=== PATIENT | female | born 1970 | race Caucasian/White ===

== ENCOUNTER 2020-07-28 13:54 | Outpatient (CLI) | payer BC, SELFPAY ==
--- NOTE | 2020-07-28 13:58 | MM_ITS ---
WS: [id number] BILATERAL SCREENING DIGITAL MAMMOGRAM WITH CAD HISTORY: SCREENING COMPARISON: 10/01/2013 Bilateral CC and MLO views submitted. Computer aided detection analyzed. Breast composition: There are scattered areas of fibroglandular density. No suspicious masses, microc alcifications or architectural distortion. MM/[place] [id number] IMPRESSION: BI-RADS: 1-Negative FOLLOW UP: 1 Year Follow-up
== END 2020-07-28 13:55 | disposition home or self-care (01) ==
LOC: RADSHAW 13:57
PROVIDERS: PCP Electrodiagnostic Medicine; Visit Provider Electrodiagnostic Medicine
DX: Z12.31 Encounter for screening mammogram for malignant neoplasm of breast (principal)
CPT/HCPCS: 77067

== ENCOUNTER → 2020-10-21 16:20 | Outpatient (BNVA) | payer BC, SELFPAY | PROVIDERS: PCP Electrodiagnostic Medicine; Visit Provider Nurse Practitioner Women's Health | DX: N95.1 Menopausal and female climacteric states (principal); Z12.4 Encounter for screening for malignant neoplasm of cervix | CPT/HCPCS: 88175 ==

== ENCOUNTER 2021-02-23 15:12 | Emergency (ER) | payer BC, SELFPAY ==
[2021-02-23] VITALS (8 sets, daily range): BP systolic 156–177; BP diastolic 93–108; PULSE 89–114; RESP 16–22; TEMP 37; O2SAT 93–95; BMI 38.7
--- NOTE | 2021-02-23 15:41 | XR_ITS ---
WS: [id number] Exam: XR chest 2V* [id number] Date/Time of Exam: 02/23/2021 3:41 PM Reason For Exam: cough, dyspnea, wheezing Comparison 10/05/2018. Findings: The lungs are clear and fully expanded. Costophrenic angles are sharp. No infiltrates. Bronchovascula r relief appears normal. Cardiac silhouette is unremarkable. Bony elements are intact. XR/XR chest 2V* [id number] IMPRESSION: Unremarkable chest radiograph.
--- NOTE | 2021-02-23 15:46 | ED_ITS ---
HPI - SOB/Dyspnea General: Chief Complaint: Shortness of Breath/Dyspnea Stated Complaint: PCP DIAGNOSED WITH PNEUMONIA ON SUNDAY PT WORSE Time Seen by Provider: 02/23/21 15:25 History of Present Illness: HPI Narrative: 51-year-old female states that on Sunday, 4 days ago she began to have sore throat nasal congestion as well as onset of cough. By Sunday morning she had some chills and her cough was getting worse and associated with some shortness of breath. She has been wheezing and having chest tightness. She went to her primary care physician who diagnosed her clinically with pneumonia and started her on Levaquin for infection control and prednisone 20 mg as well as albuterol inhaler (without a spacer). Patient reports she has not gotten any worse but she has also not gotten any better. She has easily appreciable wheezing on arrival and each breath that she takes and seems to trigger a dry hacking cough. Patient reports that her Covid PCR test was negative on Sunday. Patient does take estradiol and medroxyprogesterone. However, she does not have any complaint of extremity discomfort, hemoptysis, pleuritic chest pain nor does she have any known history of DVT or PE. Associated symptoms: Reports chest congestion, chest pain (pain if she coughs really hard) and fever(s) (low grade); Deny abdominal pain, diaphoresis, extremity pain, hemoptysis, nausea, syncope or vomiting Review of Systems General: Reports: 10 or more systems reviewed and unremarkable except in HPI and below Const: Reports: fever(s) (low grade), chills, fatigue and change in sleep pattern; Denies: body aches or diaphoresis Eyes: Denies: change in vision ENMT: Reports: throat pain, nasal congestion and post nasal drip Card: Reports: chest pain (pain if she coughs really hard) and dyspnea on exertion; Denies: edema, swelling of feet/ankles, syncope or pre-syncope Resp: Reports: dyspnea, productive cough (rarely productive--when it is mostly greenish sputum), non-productive cough, wheezing and chest congestion; Denies: hemoptysis GI: Denies: abdominal pain, nausea, vomiting or diarrhea : Denies: flank pain, dysuria or urinary frequency Musc: Denies: neck pain, back pain, extremity pain or extremity swelling Skin/Breast: Denies: rash or erythema Neuro: Denies: headache(s), numbness in extremities, weakness in extremities, lack of coordination or difficulty walking PFSH ED PFSH: Medical History (Updated 02/23/21 @ 16:24 by Maxim Carey MD) Depression 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 Hypertension Migraine headache No pertinent past medical history Neg hx: DM, thyroid, DVT/PE PCP: Dilip Surgical History History of ankle surgery (~11/2005) Right History of arthroscopic knee surgery (~04/2011) Left History of back surgery (~04/2019) Nerve ablation. Dr. Merino at [facility]. History of delivery (12/13/02) Performed in [place], [place] History of section (07/06/92) Performed in [place], [place] History of left tennis elbow (03/20/14) Release. [place] [facility] [place] of lithotripsy (~04/2006) History of right tennis elbow (~08/2007) Release Family History Mother Colon cancer, Onset Age: 70 Stroke Diabetes Dementia Father Heart disease Diabetes Hypertension Social History Smoking and tobacco status: former smoker Quit status (tobacco): has quit using tobacco Year quit tobacco: 1999 Alcohol intake: never Physical Exam Const: COMMON NORMALS: no limitations, alert and well nourished EXAM LIMITATIONS: no altered mental status GENERAL APPEARANCE: cooperative, well developed and other (coughing) ORIENTATION/CONSCIOUSNESS: Yes awake; not confused HENMT: COMMON NORMALS: normocephalic, atraumatic, external ears normal and Normal external nose present HEAD & SCALP: normal to inspection, normocephalic and atraumatic FACE & SINUS: face symmetric NOSE: Normal external nose present and No nasal discharge present (nasal congestion) EXTERNAL EAR: Yes external ears normal MOUTH: lip not normal (patient has known left sided hightower's palsy) and no muffled voice Eye: COMMON NORMALS: EOMs intact bilaterally and conjunctivae normal GENERAL EYE: appearance normal, both eyes and all related structures CONJUNCTIVA: Yes conjunctivae normal Neck/C-Spine: COMMON NORMALS: no JVD GENERAL: Yes normal visual inspection and Yes trachea midline Resp: EFFORT & INSPECTION: Yes symmetric chest movement, Yes tachypneic, Yes respiratory distress, Yes labored and Yes uses accessory muscles AUSCULTATION: wheezes and bronchial breath sounds Cardio: COMMON NORMALS: no JVD and regular rhythm RATE: tachycardic RHYTHM: regular rhythm PERIPHERAL PULSES: radial pulses present GI: COMMON NORMALS: Soft to palpation INSPECTION: Yes normal to inspection PALPATION: Yes Soft to palpation, No Tenderness to palpation present (GI) and No Guarding due to palpation present (GI) Back/Pelvis: COMMON NORMALS: thoraco-lumbar ROM normal Extremity: COMMON NORMALS: normal to inspection GENERAL: Yes normal exam except as noted, No edema and No mottling Neuro: COMMON NORMALS: moves all extremities, no focal motor deficits and no sensory deficits noted SENSORIUM/ORIENTATION: Yes alert Psych: COMMON NORMALS: mental status grossly normal, Normal thought process present, cooperative, normal affect and speech normal SPEECH: Yes normal speech THOUGHT PROCESS: Normal thought process present Skin: COMMON NORMALS: no rashes or lesions noted, turgor normal and no jaundice GENERAL SKIN EXAM: no rashes or lesions noted and turgor normal Course Vital Signs: Vital signs: Vital Signs Temperature 98.6 F 02/23/21 15:17 Pulse Rate 95 02/23/21 17:34 Respiratory Rate 16 02/23/21 17:34 Blood Pressure 156/93 02/23/21 17:29 Pulse Oximetry 93 02/23/21 17:34 MDM - SOB/Dyspnea MDM Narrative: Medical decision making narrative: Based on the history and physical examination I suspect the patient likely has a viral respiratory tract infection. She has bronchospasm with wheezing. Patient does not have any known history of asthma or COPD but this occasionally happens to her when she gets bronchitis. Although she is on prednisone she is only taking 20 mg daily. She has an albuterol inhaler which helps her but she is not using a spacer which may reduce the efficacy. If this is viral or fungal, Levaquin would not be expected to improve her symptoms. Pulmonary embolism is a consideration however with the nasal congestion, sore throat, chills, and syndrome most suggestive of infectious etiology I do not feel it is necessary to evaluate for pulmonary embolism at this time. I would, however, like to provide a albuterol nebulizer and obtain a two-view chest x-ray to begin with. UPDATE: The patient subjectively felt better after albuterol neb. On auscultation, the patient has improved aeration and therefore the inspiratory and expiratory wheezing are actually louader than before. Her cough has improved. The chest xray is clear. The patient has significant nasal congestion and is requesting treatment for same. Will give dose of afrin (and tessalon). Since her symptoms improved but wheezing persists will try a duoneb treatment with 6ml and then plan on dc unless any changes. Discharge Plan Discharge Patient Disposition: Home Clinical Impression: Acute bronchitis with bronchospasm Condition: Stable Prescriptions: New Advair Diskus 250-50 mcg/dose blister with device 1 inh inhalation Q12H 30 Days Qty: 60 RF: 0 prednisone 20 mg tablet 20 mg PO BID 7 Days Qty: 14 RF: 0 (DME) Space Chamber with Large Mask Spacer See Rx Instructions .ROUTE Qty: 1 RF: 0 No Action tramadol 50 mg tablet 50 mg PO TID PRN (Reason: Pain) RF: 0 estradiol 1 mg tablet See Rx Instructions .ROUTE .COMPLEX Qty: 45 RF: 3 atorvastatin 40 mg tablet 40 mg PO QAM RF: 0 prednisone 20 mg tablet 20 mg PO QAM RF: 0 lisinopril 10 mg tablet 10 mg PO BEDTIME RF: 0 Singulair 10 mg Tablet 10 mg PO QAM RF: 0 levofloxacin 500 mg tablet 500 mg PO DAILY RF: 0 albuterol sulfate 90 mcg/actuation HFA aerosol inhaler 1 - 2 puff INHALATION Q4H PRN (Reason: Shortness Of Breath) RF: 0 Flonase 50 mcg/actuation [place],Suspension 2 spray INTRANASAL DAILY RF: 0 levocetirizine 5 mg tablet 5 mg PO QAM RF: 0 Diflucan 150 mg tablet 150 mg PO ONCE RF: 0 citalopram 10 mg tablet 10 mg PO BEDTIME RF: 0 Provera 2.5 mg tablet 2.5 mg PO QAM RF: 0 Discharge Orders: Discharge ED (Routine); Ordered 02/23/21 Ordered By: Maxim Carey Referrals: Sharad Cherry, [Primary Care Provider] - 4-7 days Discharge Diet: Usual diet Discharge Activity: Resume usual activity Patient Instructions: Acute Bronchitis (ED), Bronchospasm (ED), Opioid Safety Activity Restrictions/Additional Instructions: Use albuterol inhaler with a spacer 2 puff every 4 hours or sooner as needed in an emergency. You may continue your levaquin as prescribed by your doctor but since this is likely viral--it may have no effect. Return to the ER if you are getting swollen, discolored skin, extremity pain, fever, or worsening respiratory problems. Coding Level of Care Code ED District Wildlife Manager for Carol Elizalde Exam Comprehensive
[2021-02-23] MEDS: predniSONE 20 mg Tablet 40 MG PO (16:28)
[2021-02-23] MEDS: ipratropium-albuterol 3 mL Neb 6 ML INHALATION (17:34)
[2021-02-23] MEDS: benzonatate 100 mg Capsule 200 MG PO (17:54)
== END 2021-02-23 18:14 | disposition home or self-care (01) ==
PROVIDERS: Emergency Provider Emergency Medicine; PCP Electrodiagnostic Medicine
DX: J47.0 Bronchiectasis with acute lower respiratory infection (principal); J20.9 Acute bronchitis, unspecified; Z87.891 Personal history of nicotine dependence; Z79.52 Long term (current) use of systemic steroids; I10 Essential (primary) hypertension; R09.81 Nasal congestion; R06.2 Wheezing
CPT/HCPCS: 71046; 94640; 99284; J7512; J7611

== ENCOUNTER 2021-03-22 15:44 | Outpatient (CLI) | payer BC, SELFPAY ==
--- NOTE | 2021-03-22 | CT_ITS ---
WS: [id number] CT CHEST TECHNIQUE: Noncontrast CT of the chest with coronal and sagittal reformatted images. CLINICAL INFORMATION: BRONCHITIS COMPARISON: February 23, 2021 DLP: 1041.[address] scans at [facility] use at least one of these dose optimization techniques: automated e xposure control; mA and/or kV adjustment per patient size (includes targeted exams where dose is matc hed to clinical indication); or iterative reconstruction. FINDINGS: Both lungs are well aerated. No acute pulmonary infiltrates. No focal pneumonia or pleural fluid. No mediastinal or hilar lymphadenopathy. No axillary lymphadenopathy. Normal caliber thoracic aorta. Adrenal glands are normal. Small esophageal hiatal hernia. CT/CT chest wo con 19502 IMPRESSION: 1. Both lungs are well aerated. No acute pulmonary infiltrates. 2. No focal pneumonia or pleural fluid. 3. No mediastinal or hilar lymphadenopathy. 4. Small esophageal hiatal hernia. 5. No other significant findings.
== END 2021-03-22 15:45 | disposition home or self-care (01) ==
PROVIDERS: PCP Electrodiagnostic Medicine; Visit Provider Electrodiagnostic Medicine
DX: J44.9 Chronic obstructive pulmonary disease, unspecified (principal); K44.9 Diaphragmatic hernia without obstruction or gangrene
CPT/HCPCS: 71250

== ENCOUNTER 2021-08-09 14:32 | Emergency (ER) | payer OTHER, SELFPAY ==
[2021-08-09 14:47] VITALS: BP 160/104; PULSE 100; RESP 16; TEMP 37.2; O2SAT 98; BMI 38.9
--- NOTE | 2021-08-09 15:01 | ED_ITS ---
HPI - Headache General: Chief Complaint: Headache Stated Complaint: migraine Time Seen by Provider: 08/09/21 14:57 Source: patient Mode of arrival: ambulatory Limitations: no limitations History of Present Illness: Patient is a nice 51-year-old female who presents to ED today with complaint of headache. She states she has a history of migraine headaches and also has a history of sinus infections/headaches. In addition she states she recently is ran out of her blood pressure medication and has noticed high blood pressure over the past few days that she admits could be contributing to her headache. Patient states she has had a headache for approximately 2 weeks now. She was initially noticing a lot of pressure to her frontal and maxillary regions. Her PCP Dr. Cherry placed her on steroids and doxycycline for treatment of a sinus infection. She states she did feel like her symptoms improved while she was on these medications. Since finishing the course she has noticed symptoms have returned. She is continuing to do her normal allergy medications as well as sinus irrigation for her allergies. Patient is not having any current nasal discharge/drainage or fevers. She denies visual changes. No neck pain. 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 MD elicited complaint: headache and migraine Pertinent past history: migraines, hypertension and other (sinus infection) Onset description: gradually Location: frontal, facial and maxillary Quality & Timing: pressure Exacerbating factors: none Relieving factors: prescription medication (steroids/doxycycline) Associated symptoms: Deny chest pain, fever(s), malaise, nausea, rash or vomiting Review of Systems Const: Denies: fever(s), chills, body aches, fatigue or malaise Eyes: Denies: change in vision ENMT: Reports: sinus pain; Denies: throat pain, odynophagia, ear or mastoid pain, nasal discharge, nasal congestion, epistaxis or post nasal drip Card: Denies: chest pain Resp: Denies: dyspnea GI: Denies: nausea or vomiting Musc: Denies: neck pain Skin/Breast: Denies: rash Neuro: Reports: headache(s); Denies: numbness in extremities, weakness in extremities, sensory changes or dizziness [facility] ED PFSH: Medical History Depression 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 Hypertension Migraine headache No pertinent past medical history Neg hx: DM, thyroid, DVT/PE PCP: Dilip Surgical History History of ankle surgery (~11/2005) Right History of arthroscopic knee surgery (~04/2011) Left History of back surgery (~04/2019) Nerve ablation. Dr. Merino at [facility]. History of delivery (12/13/02) Performed in [place], [place] History of section (07/06/92) Performed in [place], [place] History of left tennis elbow (03/20/14) Release. Performed by Dr. Coelho at [facility] [place] History of lithotripsy (~04/2006) History of right tennis elbow (~08/2007) Release Family History Mother Colon cancer, Onset Age: 70 Stroke Diabetes Dementia Father Heart disease Diabetes Hypertension Social History Smoking and tobacco status: former smoker Quit status (tobacco): has quit using tobacco Year quit tobacco: 1999 Alcohol intake: never Physical Exam Const: COMMON NORMALS: no acute distress, patient oriented x3, no limitations and alert NUTRITIONAL APPEARANCE: overweight ORIENTATION/CONSCIOUSNESS: Yes awake, Yes oriented to person, Yes oriented to place and Yes oriented to time HENMT: COMMON NORMALS: normocephalic, atraumatic and Normal external nose present HEAD & SCALP: normal to inspection, normocephalic and atraumatic FACE & SINUS: sinus tenderness frontal and maxillary and other (L facial drooping consistent with Hightower's Palsy) NOSE: Normal external nose present Eye: COMMON NORMALS: Equal, round and reactive pupils present and EOMs intact bilaterally PUPIL: Yes Equal, round and reactive pupils present Neck/C-Spine: COMMON NORMALS: full ROM, no lymphadenopathy and no meningeal signs Neuro: GLENN COMA SCALE: document GCS findings [place] coma scale eye open ing: Spontaneous Glenn coma scale verbal response: Orientated [place] coma scale motor response: Obey commands [place] coma scale total score: 15 COMMON NORMALS: patient oriented x3, moves all extremities, no focal motor deficits, no sensory deficits noted and gait normal SENSORIUM/ORIENTATION: Yes alert, Yes oriented to person, Yes oriented to place and Yes oriented to time MENINGEAL SIGNS: Yes no meningeal signs CRANIAL NERVES: Yes CN VII (facial) Laterality: left (chronic per patient) CN VII left: facial droop, unable to puff cheeks, unable to raise eyebrow(s), weak closing of eye(s) and asymmetrical smile COORDINATION/BALANCE: [id number] test normal SPEECH: speech normal GAIT: Yes Normal gait present MOTOR EXAM: 5/5 motor strength present throughout COORDINATION: [id number] test normal Course Vital Signs: Vital signs: Vital Signs Temperature 98.9 F 08/09/21 14:47 Pulse Rate 100 08/09/21 14:47 Respiratory Rate 16 08/09/21 14:47 Blood Pressure 160/104 08/09/21 14:47 Pulse Oximetry 98 08/09/21 14:47 MDM - Headache Medical Decision Making NUGENT down to a 0/10. BP now down in the 130s/80s. Still having maxillary/frontal pressure. Explained that most cases of sinusitis are not bacterial. She has already completed a round of abx through PCP. Will refill BP meds and place her on a few days of steroids. She states she will follow up with PCP soon for re- evaluation. Return to ED precautions given. Discharge Plan Discharge Patient Disposition: Home Clinical Impression: Sinus headache Hypertension Qualifiers: Hypertension type: unspecified Qualified Code(s): I10 - Essential (primary) hypertension Condition: Stable Prescriptions: Changed prednisone 20 mg tablet 20 mg PO DAILY Qty: 7 0RF lisinopril 10 mg tablet 10 mg PO DAILY Qty: 30 0RF No Action tramadol 50 mg tablet 50 mg PO TID PRN (Reason: Pain) 0RF estradiol 1 mg tablet See Rx Instructions .ROUTE .COMPLEX Qty: 45 3RF Dose Instruction: TAKE 1/2 TABLET BY MOUTH DAILY Rx Instructions: TAKE 1/2 TABLET BY MOUTH DAILY; take in conjunction with provera (DME) Space Chamber with Large Mask Spacer See Rx Instructions .ROUTE Qty: 1 0RF Rx Instructions: As directed atorvastatin 40 mg tablet 40 mg PO QAM 0RF Singulair 10 mg Tablet 10 mg PO QAM 0RF levofloxacin 500 mg tablet 500 mg PO DAILY 0RF albuterol sulfate 90 mcg/actuation HFA aerosol inhaler 1 - 2 puff INHALATION Q4H PRN (Reason: Shortness Of Breath) 0RF Flonase 50 mcg/actuation [place],Suspension 2 spray INTRANASAL DAILY 0RF levocetirizine 5 mg tablet 5 mg PO QAM 0RF Diflucan 150 mg tablet 150 mg PO ONCE 0RF Rx Instructions: may repeat in 7 days citalopram 10 mg tablet 10 mg PO BEDTIME 0RF Provera 2.5 mg tablet 2.5 mg PO QAM 0RF Rx Instructions: take in conjunction with estradiol Discharge Orders: Discharge ED (Routine); Ordered 08/09/21 Ordered By: Sue Siddiqui Referrals: Sharad Cherry DO [Primary Care Provider] - Coding Level of Care Code ED Nurses Superintendent for Chg Fwd Exam Detailed
[2021-08-09] MEDS: diphenhydrAMINE 50 mg/mL SDV 1mL IVP (16:13)
[2021-08-09] MEDS: ketorolac 60 mg/2 mL INJ 30 MG IVP (16:20)
[2021-08-09] MEDS: metoprolol tartrate 1 mg/1 mL SDV 5 mL 2.5 MG IVP (16:20)
[2021-08-09] MEDS: oxymetazoline 0.05% Nasal Spray 15 mL 2 SPRAY NOSTRIL-B (16:20)
== END 2021-08-09 17:10 | disposition home or self-care (01) ==
PROVIDERS: Emergency Provider Physician Assistant; PCP Electrodiagnostic Medicine
DX: G44.89 Other headache syndrome (principal); I10 Essential (primary) hypertension
CPT/HCPCS: 96374; 96375; 99283; J1200; J1885; J3490

== ENCOUNTER 2021-12-27 06:02 | Day surgery (SDC) | payer OTHER, SELFPAY ==
[2021-12-27] VITALS (13 sets, daily range): BP systolic 76–150; BP diastolic 50–93; PULSE 76–100; RESP 16–18; TEMP 36.2–36.5; O2SAT 94–100
--- NOTE | 2021-12-27 06:31 | P.ANESASSM_ITS ---
Pre-Anesthetic Assessment Height/Weight: Height 1.63 m Weight 101.605 kg Temp Pulse Resp BP Pulse Ox O2 Del Method 97.6 F 99 18 125/93 99 12/27/21 06:14 12/27/21 06:14 12/27/21 06:14 12/27/21 06:14 12/27/21 06:14 12/27/21 06:16 Preop Diagnosis: Chronic sinusitis Operation Date: 12/27/21 07:00 Proposed Procedures p Bilateral EESS with possible Septo/Turb [id number],J32.8(Bilateral) - Ankur Oliveros MD Familial anesthetic complications: Hx of PONV and slow wake up in patient after foot surgery Was Beta Steven taken within 24 hours: N/A Was Clonidine taken within 24 hours: N/A Last intake: Intake Last Liquid Date 12/26/21 Last Liquid Time 18:30 Last Solid Date 12/26/21 Last Solid Time 18:30 Social No alcohol and No tobacco Exam alert, oriented x 3, clear to auscultation bilaterally and regular rate & rhythm Airway Submandibular: within normal limits Cervical ROM: within normal limits Mallampati: Class I Dentition: full History/ROS No significant complaints Pulmonary Chronic sinusitis CV/HEM Hypertension None reported Hepatic None reported GI None reported Obesity Metabolic None reported Musc/skel None reported Neuropsych Depression and Headache Hx of Hightower's Palsy Anesthetic Plan ASA status: 2 Anesthesia: Anesthesia Evaluation and General Other: We discussed risk and benefits of general anesthesia including PONV, sore throat (sometimes severe), corneal abrasion, positioning and peripheral nerve injuries, life threatening allergic reaction, post operative ICU admission requiring prolonged intubation, stroke, heart attack, , and rare incidences of recall. Patient consents to proceed with general anesthesia. Risk of > 500 ml blood loss (7ml/kg in children): No Medications/Allergies Home Medications Medication Instructions Recorded Confirmed Last Taken Type tramadol 50 mg tablet 50 mg PO TID PRN Pain 10/17/19 12/26/21 12/26/21 History atorvastatin 40 mg tablet 40 mg PO QAM 02/23/21 12/26/21 12/26/21 History citalopram 10 mg tablet 10 mg PO BEDTIME 02/23/21 12/26/21 12/26/21 History fluticasone propionate 50 2 spray intranasal DAILY 02/23/21 12/26/21 12/26/21 History mcg/actuation nasal spray,suspension inhalat.spacing dev,large mask #1 ea 02/23/21 12/01/21 Unknown Rx (Space Chamber with Large Mask) levocetirizine 5 mg tablet 5 mg PO QAM 02/23/21 12/26/21 12/26/21 History lisinopril 10 mg tablet 10 mg PO DAILY #30 tabs 08/09/21 12/26/21 12/26/21 Rx estradiol 0.5 mg tablet 0.5 mg PO QDAY #90 tabs 12/01/21 12/26/21 12/26/21 Rx medroxyprogesterone 2.5 mg tablet 2.5 mg PO QAM #90 tabs 12/01/21 12/26/21 12/26/21 Rx (Provera) montelukast 10 mg tablet 10 mg PO QAM PRN allergies 12/01/21 12/26/21 12/26/21 History (Singulair) Allergies Allergy/AdvReac Type Severity Reaction Status Date / Time No Known Allergies Allergy Verified 12/01/21 14:02 [facility] Anesthesia Medical History Depression 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 Hypertension Migraine headache No pertinent past medical history Neg hx: DM, thyroid, DVT/PE PCP: Dilip Surgical History History of ankle surgery (~11/2005) Right History of arthroscopic knee surgery (~04/2011) Left History of back surgery (~04/2019) Nerve ablation. Dr. Merino at [facility]. History of delivery (12/13/02) Performed in [place], [place] History of section (07/06/92) Performed in [place], [place] History of left tennis elbow (03/20/14) Release. Performed by Dr. Coelho at [facility] [place] History of lithotripsy (~04/2006) History of right tennis elbow (~08/2007) Release Family History Mother Colon cancer dx age 70's Stroke Diabetes Father Heart disease Diabetes Hypertension Denies family history of Ovarian cancer Hyperlipidemia Breast cancer Uterine cancer Thyroid disease Data Anesthesia : 12/27/21 06:36 Cardiac Studies: No Data to Display
[2021-12-27] MEDS: sodium chloride 0.9% 1,000 ML 30 ML IV (06:41)
--- NOTE | 2021-12-27 06:46 | W.PM.OPSUD ---
Surgery/Procedure H&P Update DATE OF PROCEDURE: December 27, 2021 DATE H&P PERFORMED: 12/19/21 PRIMARY INDICATION FOR PROCEDURE: Chronic Sinusitis PLANNED PROCEDURE: Operation Date: 12/27/21 07:00 Proposed Procedures p Bilateral EESS with possible Septo/Turb [id number],J32.8(Bilateral) - Ankur Oliveros MD
[2021-12-27] MEDS: diphenhydrAMINE 50 mg/mL SDV 1mL 12.5 MG IVP (06:52)
[2021-12-27 07:31] LABS: Anion Gap 13.4 (5-19); Blood Urea Nitrogen 11 mg/dL (6-20); Calcium 9.1 mg/dL (8.5-10.5); Carbon Dioxide 23 mmol/L (22-29); Chloride 105 mmol/L (98-107); Glucose 132 mg/dL (65-115); Osmolality Calculated 285 mOsm/kg (285-295); Potassium 4.4 mmol/L (3.5-5.1); Sodium 137 mmol/L (136-145)
[2021-12-27] MEDS: EPINEPHrine 1 mg/mL INJ XX (08:15)
[2021-12-27] MEDS: oxymetazoline 0.05% Nasal Spray 15 mL 2 SPRAY NOSTRIL-B (08:17)
[2021-12-27] MEDS: fluorescein 1 mg Strip XX (08:19)
--- NOTE | 2021-12-27 08:57 | PM.OP ---
Operative Report Date of procedure: December 27, 2021 Pre-op diagnosis: Preop Diagnosis Chronic sinusitis Post-op diagnosis: same Post-op findings: Obstructing nasal septal deviation Bilateral inferior turbinate hypertrophy O/W normal bilateral intranasal exam Procedure done: - Nasal septoplasty - Bilateral inferior turbinoplasty - Bilateral maxillary antrostomy - Bilateral anterior ethmoidectomy Implants: None Specimens removed/disposition: Nasal Cartilage and bone Bilateral sinus contents Pathology: See specimens above Surgeon: Ankur Oliveros Business Intelligence Engineer: Giovanna Pratt Anesthesia: General Estimated blood loss (mL): 15 IV fluids (mL): 700 Complications: None Findings: - Nasal septal deviation - Bilateral inferior turbinate hypertrophy - O/W normal bilateral intranasal exam Condition: stable Disposition: PACU Brief History: 51 yo wf with a h/o chronic and recurrent sinusitis unresponsive to medical therapy who desires surgical therapy. Procedure: The patient was notified the preop holding area was taken to the operating where she was placed on the operating table in the supine position. Anesthesia was obtained with general endotracheal anesthesia. The patient's nose was inspected and injected with local anesthesia and an Afrin lidocaine soaked nasal pledgets were placed intranasally bilaterally. 10 minutes were allowed to pass. The pledgets were then removed and an inspection was then carried on the patient right nasal cavity with a 0 degree Eisenberg estrella surgical telescope with the attached video camera system. A right hemitransfixion incision was made with 15 blade that was carried down to the septal cartilage and a subperichondrial plane was then developed with a caudal knife and caudal elevator. The bony cartilaginous junctions were then divided and the septum was then swung into the midline. The deviated portion of the bony nasal septum was then removed with a pair of Chu up-biting forceps. Attention was then turned to the right nasal cavity and the middle turbinate was infractured. The uncinate was infractured and then removed with backbiting forceps and 93 cup bite through right forceps. The natural maxillary sinus ostium was then instrumented with a double-ended ball probe and enlarged posteriorly into the nasal fontanelle. The maxillary antrostomy was created was then debrided of extraneous tissue using surgical microdebrider. The bulla ethmoidalis was then perforated and exenterated with an angled curette and a surgical microdebrider. The agger nasi cell was then also opened and exenterated. At this point the lateral surface of the inferior turbinate was debrided of its mucosa anteriorly and the bone was removed anteriorly with bone-cutting forceps. The inferior turbinate was then outfractured on the right. Once this accomplished attention was turned to the left nasal cavity where a similar procedure was performed. At this point, the middle meatus was filled with nasopore absorbable packing bilaterally and the septum was secured in the midline with Ballard nasal splints secured in place with transseptal 0 Prolene suture. At this point the procedure was terminated and control of the patient was returned to anesthesia where she underwent an uneventful reversal of anesthesia and extubation and was taken to the recovery room stable condition. There were no operative or anesthetic complications.
[2021-12-27] MEDS: ondansetron 2 mg/ML SDV 2 mL 4 MG IVP ×2 (09:02→09:25)
[2021-12-27] MEDS: metoclopramide 5 mg/mL SDV 2 mL 10 MG IVP (09:35)
[2021-12-27] MEDS: HYDROcodone-acetaminophen 5-325 mg Tablet 1 TAB PO (10:02)
--- NOTE | 2021-12-27 14:52 | ANE.PACU2 ---
Inpatient post-anesthesia follow up: Airway intact: Yes Vital signs: Temperature 97.2 F Pulse Rate 82 Respiratory Rate 18 Blood Pressure 108/78 Pulse Oximetry 99 Oxygen Delivery Me thod Room Air Oxygen Flow Rate 6 Fraction of Inspir ed Oxygen Hydration adequate: Yes Nausea and vomiting: No Pain level: 4 Mental status: Baseline
== END 2021-12-27 10:24 | disposition home or self-care (01) ==
PROVIDERS: Anesthesiology; PCP Electrodiagnostic Medicine; Visit Provider Specialist
PROC: (CPT 31231; principal; 2021-12-27 07:00)
DX: J32.9 Chronic sinusitis, unspecified (principal); J34.2 Deviated nasal septum; J35.3 Hypertrophy of tonsils with hypertrophy of adenoids; I10 Essential (primary) hypertension; E78.00 Pure hypercholesterolemia, unspecified; E66.9 Obesity, unspecified; Z68.38 Body mass index [BMI] 38.0-38.9, adult
CPT/HCPCS: 31255; 31267; 12345; 36415; 80048; 88305; J0171; J1100; J1200; J2250; J2370; J2405; J2704; J2710; J2765; J3010; J3490; J7030

== ENCOUNTER 2022-03-03 08:33 | Outpatient (CLI) | payer OTHER, SELFPAY ==
--- NOTE | 2022-03-03 08:44 | MR_ITS ---
WS: [id number] MRI HEAD WITH CONTRAST WITH ATTENTION TO THE INTERNAL AUDITORY CANALS TECHNIQUE: Sagittal T1, T2 axial, T2 axial flair, axial susceptibility weighted imaging, axial diffus ion weighted images, and coronal T2 images were obtained. Pre and post T1 axial and post T1 coronal i mages. ADC and FSPGR images. Post gadolinium images with attention to the internal auditory canals. A xial fiesta imaging. CLINICAL INFORMATION: SENSORINEURAL HEARING LOSS-BILATERAL COMPARISON: CT 2019 FINDINGS: No evidence of restricted diffusion to suggest acute ischemia. Ventricular system and basal cisterns are patent. No suspicious intracranial signal abnormalities. Normal ramirez-white differentiation. No ev idence of mass or mass effect. Normal posterior fossa. Normal vascular flow voids at the skull base. No extra-axial fluid collections. Mild mucosal thickening in the paranasal sinuses. Normal posterior nasopharynx and parapharyngeal fat. No hemosiderin on susceptibly weighted images. Proximal 7th and 8th cranial nerves are normal in appe arance. Normal optic chiasm and pituitary infundibulum. Temporal lobes and hippocampal formations are normal. No evidence of enhancing IAC or CP angle mass. A few prominent upper cervical chain lymph nodes nonsp ecific but likely reactive. No abnormal gadolinium enhancement. Normal dural venous sinuses. 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 This is typically incidental but can result in trigeminal neuralgia. This slightly abuts the LEFT trigeminal nerve. Nor mal RIGHT trigeminal nerve. MR/MR iac's wo/w con* [id number] IMPRESSION: 1. No evidence of restricted diffusion to suggest acute ischemia. 2. 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 This is typically incidental but can result in trigeminal neura lgia. 3. Proximal 7th and 8th cranial nerves are normal in appearance. No enhancing IAC or CP angle mass. 4. Mild mucosal thickening paranasal sinuses. Mastoid air cells well aerated. 5. Normal posterior nasopharynx. 6. No abnormal intracranial enhancement.
[2022-03-03] MEDS: gadobenate dimeglumine 20 mL vial IV (09:36)
== END 2022-03-03 08:34 | disposition home or self-care (01) ==
PROVIDERS: PCP Electrodiagnostic Medicine; Visit Provider Otolaryngology
DX: H90.3 Sensorineural hearing loss, bilateral (principal)
CPT/HCPCS: 70553

== ENCOUNTER 2022-04-15 06:19 | Emergency (ER) | payer OTHER, SELFPAY ==
[2022-04-15 06:20] VITALS: BP 140/83; PULSE 95; RESP 18; TEMP 36.7; O2SAT 94
[2022-04-15 06:25] VITALS: BP 134/89; PULSE 95; RESP 18; O2SAT 94
--- NOTE | 2022-04-15 06:35 | ED_ITS ---
HPI - SOB/Dyspnea General: Chief Complaint: Shortness of Breath/Dyspnea Stated Complaint: cough, sob Time Seen by Provider: 04/15/22 06:32 Source: patient Mode of arrival: ambulatory History of Present Illness: HPI Narrative: 52-year-old female presents emergency room with complaint of nonproductive cough for approximately the last 2 weeks. She been taking old prescription of amoxicillin does not seem to be helping. She denies nausea vomiting or diarrhea. Subjectively she feels like it is a fever but she states. She checked at home she has not had a temperature. MD elicited complaint: shortness of breath and cough Onset (ago): week(s) Timing: constant Severity: mild Exacerbating factors: nothing Relieving factors: nothing Associated symptoms: Deny abdominal pain, chest pain, fever(s), nausea, orthopnea, palpitations or vomiting Review of Systems Const: Denies: fever(s), chills, body aches, change in appetite, fatigue or malaise ENMT: Denies: throat pain, ear or mastoid pain, nasal discharge or nasal congestion Card: Denies: chest pain, palpitations, irregular heart rhythm, edema, dyspnea on exertion or orthopnea Resp: Reports: non-productive cough and wheezing; Denies: dyspnea or productive cough GI: Denies: abdominal pain, nausea, vomiting, hematemesis, coffee ground emesis, diarrhea, constipation, bloating, hematochezia or melena : Denies: flank pain, difficulty voiding, dysuria, urinary frequency or urinary urgency Skin/Breast: Denies: rash or pruritus PFSH ED PFSH: Medical History Depression 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 Hypertension Migraine headache No pertinent past medical history Neg hx: DM, thyroid, DVT/PE PCP: Dilip Surgical History History of ankle surgery (~11/2005) Right History of arthroscopic knee surgery (~04/2011) Left History of back surgery (~04/2019) Nerve ablation. Dr. Merino at [facility]. History of delivery (12/13/02) Performed in [place], [place] History of section (07/06/92) Performed in [place], [place] History of left tennis elbow (03/20/14) Release. Performed by Dr. Coelho at [facility] History of lithotripsy (~04/2006) History of right tennis elbow (~08/2007) Release Family History Mother Colon cancer dx age 70's Stroke Diabetes Father Heart disease Diabetes Hypertension Denies family history of Ovarian cancer Hyperlipidemia Breast cancer Uterine cancer Thyroid disease Physical Exam Const: COMMON NORMALS: no acute distress GENERAL APPEARANCE: cooperative and comfortable ORIENTATION/CONSCIOUSNESS: Yes awake, Yes oriented to person, Yes oriented to place and Yes oriented to time HENMT: COMMON NORMALS: normocephalic, atraumatic and hearing grossly normal bilaterally HEAD & SCALP: normocephalic and atraumatic Resp: COMMON NORMALS: normal respiratory effort, No retractions and No use of accessory muscles AUSCULTATION: rhonchi and wheezes Cardio: COMMON NORMALS: regular rate, regular rhythm and No murmurs present ( Cardio) RATE: regular rate RHYTHM: regular rhythm GI: COMMON NORMALS: Soft to palpation and No hepatosplenomegaly present AUSCULTATION: Yes normoactive bowel sounds PALPATION: Yes Soft to palpation, No Tenderness to palpation present (GI), No Guarding due to palpation present (GI) and Yes No hepatosplenomegaly present Extremity: COMMON NORMALS: normal to inspection, capillary refill normal, no clubbing, cyanosis or edema, no calf tenderness and no pedal edema Neuro: SENSORIUM/ORIENTATION: Yes oriented to person, Yes oriented to place and Yes oriented to time Skin: COMMON NORMALS: no rashes or lesions noted GENERAL SKIN EXAM: no rashes or lesions noted Course Vital Signs: Vital signs: Vital Signs Temperature 98.0 F 04/15/22 06:20 Pulse Rate 104 H 04/15/22 07:40 Respiratory Rate 18 04/15/22 07:32 Blood Pressure 135/81 04/15/22 07:20 Pulse Oximetry 97 04/15/22 07:32 Oxygen Delivery Me thod 04/15/22 07:32 MDM - SOB/Dyspnea Medical Decision Making Significant improvement with airflow after nebulizer. Patient is feeling somewhat better. We will go ahead and start her on doxycycline steroid taper and albuterol. She did have a little bit of lymphocytosis we will swab her for COVID before discharge she has had this long enough she will be a candidate for Paxlovid. Follow-up with her primary care doctor if she is not improving. Medical Records I reviewed the patient's medical records. Lab Data I reviewed the patient's lab results. 04/15/22 06:55 04/15/22 06:55 Labs/Radiology: Laboratory Results WBC 3.4 10^3/uL (4.0-10.0) L 04/15/22 06:55 RBC 4.53 10^6/uL (4.1-5.3) 04/15/22 06:55 Hgb 12.7 g/dL (11.5-15.3) 04/15/22 06:55 Hct 39.6 % (37.0-47.0) 04/15/22 06:55 MCV 87.4 fl (81-99) 04/15/22 06:55 MCH 28.0 pg (28.0-34.0) 04/15/22 06:55 MCHC 32.1 g/dL (30.0-36.0) 04/15/22 06:55 RDW 13.1 % (12.1-15.1) 04/15/22 06:55 Plt Count 288 10^3/cmm (130-400) 04/15/22 06:55 MPV 9.2 fL (7.4-10.4) 04/15/22 06:55 Neut % (Auto) 67.5 % 04/15/22 06:55 Lymph % (Auto) 14.6 % 04/15/22 06:55 [place] % (Auto) 8.5 % 04/15/22 06:55 Eos % (Auto) 7.6 % 04/15/22 06:55 Baso % (Auto) 1.5 % 04/15/22 06:55 Neut # (Auto) 2.31 10^3/uL (1.8-7.7) 04/15/22 06:55 Lymph # (Auto) 0.5 10^3/uL (0.8-4.8) L 04/15/22 06:55 [place] # (Auto) 0.3 10^3/uL (0.2-0.9) 04/15/22 06:55 Eos # (Auto) 0.3 10^3/uL (0.0-0.8) 04/15/22 06:55 Baso # (Auto) 0.1 10^3/uL (0.0-0.1) 04/15/22 06:55 Nucleated RBC % (auto) 0 % 04/15/22 06:55 Nucleated RBCs # 0.0 /100WBC 04/15/22 06:55 Sodium 140 mmol/L (136-145) 04/15/22 06:55 Potassium 4.2 mmol/L (3.5-5.1) 04/15/22 06:55 Chloride 106 mmol/L (98-107) 04/15/22 06:55 Carbon Dioxide 24 mmol/L (22-29) 04/15/22 06:55 Anion Gap 14.2 (5-19) 04/15/22 06:55 BUN 22 mg/dL (6-20) H 04/15/22 06:55 Creatinine 1.0 mg/dL (0.5-0.9) H 04/15/22 06:55 GFR Calculation 57.8 mL/min (90-130) L 04/15/22 06:55 Glucose 118 mg/dL (65-115) H 04/15/22 06:55 Calculated Osmolality 294 mOsm/kg (285-295) 04/15/22 06:55 Calcium 9.2 mg/dL (8.5-10.5) 04/15/22 06:55 Discharge Plan Discharge Patient Disposition: Home Clinical Impression: Bronchitis Condition: Stable Prescriptions: New doxycycline hyclate 100 mg capsule 100 mg PO BID 10 Days Qty: 20 0RF Medrol (Solo) 4 mg tablets,dose pack See Rx Instructions .ROUTE .COMPLEX Qty: 21 0RF Rx Instructions: orally per package directions albuterol sulfate 90 mcg/actuation HFA aerosol inhaler 2 inh INHALATION Q4H PRN (Reason: shortness of breath or wheezing) Qty: 18 0RF No Action estradiol 0.5 mg tablet 0.5 mg PO QDAY Qty: 90 3RF Rx Instructions: take in conjunction with provera Provera 2.5 mg tablet 2.5 mg PO QAM Qty: 90 3RF Rx Instructions: take in conjunction with estradiol tramadol 50 mg tablet 50 mg PO TID PRN (Reason: Pain) Hold Instructions: Resume on 01/06/22. Hold until after post op [place] complete (DME) Space Chamber with Large Mask Spacer See Rx Instructions .Route Qty: 1 0RF Rx Instructions: As directed atorvastatin 40 mg tablet 40 mg PO QAM fluticasone propionate 50 mcg/actuation [place],Suspension 2 spray INTRANASAL DAILY levocetirizine 5 mg tablet 5 mg PO QAM citalopram 10 mg tablet 10 mg PO BEDTIME Singulair 10 mg tablet 10 mg PO QAM PRN (Reason: allergies) lisinopril 10 mg tablet 10 mg PO DAILY Qty: 30 0RF hydrocodone-acetaminophen 5-325 mg tablet 1 tab PO Q6H PRN (Reason: pain) Qty: 25 0RF Discharge Orders: Discharge ED (Routine); Ordered 04/15/22 Ordered By: Nik Burk Referrals: Sharad Cherry DO [Primary Care Provider] - Discharge Diet: Usual diet Discharge Activity: Increase activity as tolerated Patient Instructions: Opioid Safety, Pain Management Activity Restrictions/Additional Instructions: You were seen today for chronic cough. No clear signs of pneumonia. Your swab for COVID at the time of discharge we will contact you with the result when it becomes available. Use albuterol inhaler as needed begin a steroid taper this evening. Started on a doxycycline twice daily for 10 days if not improving recheck with your primary care doctor. Coding Level of Care Code ED Stripper And Taper for Carol Elizalde
--- NOTE | 2022-04-15 06:36 | XRR_ITS ---
PROCEDURE INFORMATION: Exam: XR Chest Exam date and time: 04/15/2022 6:45 AM Age: 52 years old Clinical indication: Cough and shortness of breath; Additional info: Dyspnea/cough TECHNIQUE: Imaging protocol: Radiologic exam of the chest. Views: 1 view. COMPARISON: CT chest con [id number] 03/22/2021 3:54 PM FINDINGS: Lungs: No consolidation. Pleural spaces: Unremarkable. No pleural effusion. No pneumothorax. Heart/Mediastinum: No cardiomegaly. Bones/joints: No acute fracture. XR/XR chest 1V portable [id number] IMPRESSION: No acute findings.
--- NOTE | 2022-04-15 06:36 | ECG_ITS ---
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
[2022-04-15 07:20] VITALS: BP 135/81; PULSE 95; RESP 18; O2SAT 95
[2022-04-15] MEDS: ipratropium-albuterol 3 mL Neb INHALATION (07:28)
[2022-04-15 07:29] LABS: Anion Gap 14.2 (5-19); Blood Urea Nitrogen 22 mg/dL (6-20); Calcium 9.2 mg/dL (8.5-10.5); Carbon Dioxide 24 mmol/L (22-29); Chloride 106 mmol/L (98-107); Glomerular Filtration Rate 57.8 mL/min (90-130); Glucose 118 mg/dL (65-115); Osmolality Calculated 294 mOsm/kg (285-295); Potassium 4.2 mmol/L (3.5-5.1); Sodium 140 mmol/L (136-145)
[2022-04-15 07:32] VITALS: PULSE 94; RESP 18; O2SAT 97
[2022-04-15 07:40] VITALS: PULSE 104
[2022-04-15 07:46] LABS: Basophils # 0.1 10^3/uL (0.0-0.1); Basophils % 1.5 %; Eosinophils # 0.3 10^3/uL (0.0-0.8); Eosinophils % 7.6 %; Hematocrit 39.6 % (37.0-47.0); Hemoglobin 12.7 g/dL (11.5-15.3); Lymphocytes # 0.5 10^3/uL (0.8-4.8); Lymphocytes % 14.6 %; Mean Corpuscular HGB Conc 32.1 g/dL (30.0-36.0); Mean Corpuscular Volume 87.4 fl (81-99); Mean Platelet Volume 9.2 fL (7.4-10.4); Monocytes # 0.3 10^3/uL (0.2-0.9); Monocytes % 8.5 %; Neutrophils # 2.31 10^3/uL (1.8-7.7); Neutrophils % 67.5 %; Nucleated Red Blood Cells % 0 %; Platelet Count 288 10^3/cmm (130-400); Red Blood Count 4.53 10^6/uL (4.1-5.3); Red Cell Distribution Width 13.1 % (12.1-15.1); White Blood Count 3.4 10^3/uL (4.0-10.0)
[2022-04-15 08:09] VITALS: BP 135/81; PULSE 104; RESP 18; O2SAT 97
[2022-04-15 09:52] LABS: Adenovirus Not Detected (NOT DETECT); Chlamydia Pneumoniae Not Detected (NOT DETECT); Coronavirus 229E,HKU1,NL63,OC4 Not Detected (NOT DETECT); Human Metapneumovirus Not Detected (NOT DETECT); Human Rhinovirus/Enterovirus Not Detected (NOT DETECT); Influenza A Detected (NOT DETECT); Influenza A H1 Not Detected (NOT DETECT); Influenza A H1-2009 Not Detected (NOT DETECT); Influenza A H3 Detected (NOT DETECT); Influenza B Not Detected (NOT DETECT); Mycoplasma Pneumoniae Not Detected (NOT DETECT); Parainfluenza Virus Type 1 Not Detected (NOT DETECT); Parainfluenza Virus Type 2 Not Detected (NOT DETECT); Parainfluenza Virus Type 3 Not Detected (NOT DETECT); Parainfluenza Virus Type 4 Not Detected (NOT DETECT); Respiratory Syncytial Virus A Not Detected (NOT DETECT); Respiratory Syncytial Virus B Not Detected (NOT DETECT); SARS-COV-2 Not Detected (NOT DETECT)
[2022-04-15 10:04] LABS: Influenza A Detected (NOT DETECT); Influenza A H1 Not Detected (NOT DETECT); Influenza A H1-2009 Not Detected (NOT DETECT); Influenza A H3 Detected (NOT DETECT); Influenza B Not Detected (NOT DETECT)
== END 2022-04-15 08:07 | disposition home or self-care (01) ==
PROVIDERS: Emergency Provider Family Medicine; PCP Electrodiagnostic Medicine
DX: J40 Bronchitis, not specified as acute or chronic (principal); I10 Essential (primary) hypertension; Z20.822 Contact with and (suspected) exposure to COVID-19
CPT/HCPCS: 71045; 80048; 85025; 87631; 87635; 93005; 94640; 96374; 99285; J2930

== ENCOUNTER 2023-01-24 08:14 | Outpatient (CLI) | payer OTHER, SELFPAY ==
--- NOTE | 2023-01-24 08:19 | MM_ITS ---
WS: [id number] BILATERAL SCREENING DIGITAL TOMOSYNTHESIS MAMMOGRAM WITH CAD HISTORY: Z12.39 - Encounter for other screening for malignant neop... COMPARISON: 07/28/2020 and 10/01/2013 Bilateral CC and MLO views with tomosynthesis and synthetic mammography submitted. Computer aided det ection analyzed. Breast composition: There are scattered areas of fibroglandular density. No suspicious masses, microc alcifications or architectural distortion. IMPRESSION: MM/[place] [id number] BI-RADS: 1-Negative FOLLOW UP: 1 Year Follow-up
== END 2023-01-24 08:15 | disposition home or self-care (01) ==
PROVIDERS: PCP Electrodiagnostic Medicine; Visit Provider Nurse Practitioner Women's Health
DX: Z12.31 Encounter for screening mammogram for malignant neoplasm of breast (principal)
CPT/HCPCS: 77063; 77067

== ENCOUNTER 2023-08-31 01:23 | Emergency (ER) | payer OTHER, SELFPAY ==
[2023-08-31 01:34] VITALS: BP 147/100; PULSE 87; RESP 18; TEMP 37; O2SAT 97; BMI 38.4
--- NOTE | 2023-08-31 01:43 | W.ED.URI ---
HPI - URI/Sore Throat General: Chief Complaint: Upper Respiratory Infection Stated Complaint: Cough\SOB\Conjestions Time Seen by Provider: 08/31/23 01:32 History of Present Illness: Patient presents to the ER with complaints of cough congestion and began a couple days ago. Patient is tried her inhaler Aleve Maeve[place] cold and cough medicine nothing works. Patient denies any fever or chills but is wheezing. Patient is a nonproductive cough. 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 Depression Hypertension Surgical History H/O sinus surgery (~12/27/21) cleaned out sinuses and corrected a deviated septum History of arthroscopic knee surgery (~04/2011) Left History of right tennis elbow (~08/2007) Release History of left tennis elbow (03/20/14) Release. Performed by Dr. Coelho at [facility] History of lithotripsy (~04/2006) History of ankle surgery (~11/2005) Right History of delivery (12/13/02) Performed in [place], [place] History of section (07/06/92) Performed in [place], [place] History of back surgery (~04/2019) Nerve ablation. Dr. Merino at [facility]. Family History Mother Colon cancer dx age 70's Stroke Diabetes Father Heart disease Diabetes Hypertension Denies family history of Ovarian cancer Hyperlipidemia Breast cancer Uterine cancer Thyroid disease Social History Substance/Drug Use: never Physical Exam Const: COMMON NORMALS: no acute distress, average body habitus, patient oriented x3, no limitations, healthy appearing, alert and well nourished HENMT: COMMON NORMALS: normocephalic, atraumatic, hearing grossly normal bilaterally, external ears normal, Normal external nose present, moist oral mucous membranes and oropharynx normal HEAD & SCALP: normocephalic and atraumatic NOSE: Normal external nose present EXTERNAL EAR: Yes external ears normal Neck/C-Spine: COMMON NORMALS: no JVD Chest: COMMONS NORMALS: normal inspection of the chest and normal palpation of entire chest wall Resp: COMMON NORMALS: normal respiratory effort, No retractions and No use of accessory muscles; negative for clear to auscultation bilaterally (Occasional expiratory wheeze dry hacking cough) AUSCULTATION: not clear to auscultation bilaterally (Occasional expiratory wheeze dry hacking cough) Cardio: COMMON NORMALS: no JVD, regular rate, regular rhythm, S1 normal heart sound present, S2 normal heart sound present, No gallops present (Cardio), No clicks present (Cardio), No murmurs present (Cardio) and No rub (Cardio) RATE: regular rate RHYTHM: regular rhythm HEART SOUNDS: S1 normal heart sound present and S2 normal heart sound present GI: COMMON NORMALS: Normal to inspection, nondistended, normoactive bowel sounds present, Soft to palpation, non-tender, No hepatosplenomegaly present and no masses PALPATION: Yes Soft to palpation and Yes No hepatosplenomegaly present Neuro: COMMON NORMALS: patient oriented x3 SENSORIUM/ORIENTATION: Yes alert Course Vital Signs: Vital signs: Vital Signs Temperature 98.6 F 08/31/23 03:20 Pulse Rate 83 08/31/23 03:20 Respiratory Rate 18 08/31/23 03:20 Blood Pressure 147/100 08/31/23 03:20 Pulse Oximetry 98 08/31/23 03:20 Oxygen Delivery Me thod Room Air 08/31/23 02:08 MDM - URI/Sore Throat Medical Decision Making Your x-rays were negative for any acute findings. It is thought you have upper respiratory infection or bronchitis. You will be placed on antibiotics and steroids please follow-up with your family practice physician in the next 7 days. Lab Data Radiology Impressions Chest X-Ray 08/31/23 01:56 IMPRESSION: No acute cardiopulmonary findings. All radiology interpretation(s) finalized by discharge Discharge Plan Discharge Patient Disposition: Home Clinical Impression: Upper respiratory infection Qualifiers: URI type: unspecified URI Qualified Code(s): J06.9 - Acute upper respiratory infection, unspecified Condition: Stable Prescriptions: New cephalexin 500 mg capsule 500 mg PO Q6H 7 Days Qty: 28 0RF prednisone 50 mg tablet 50 mg PO DAILY Qty: 5 0RF No Action tramadol 50 mg tablet 50 mg PO TID PRN (Reason: Pain) Hold Instructions: Resume on 01/06/22. Hold until after post op [place] complete estradiol 0.5 mg tablet 0.5 mg PO QDAY Qty: 90 3RF Rx Instructions: take in conjunction with provera Provera 2.5 mg tablet 2.5 mg PO QAM Qty: 90 3RF Rx Instructions: take in conjunction with estradiol (DME) Space Chamber with Large Mask Spacer See Rx Instructions .Route Qty: 1 0RF Rx Instructions: As directed atorvastatin 40 mg tablet 40 mg PO QAM fluticasone propionate 50 mcg/actuation [place],Suspension 2 spray INTRANASAL DAILY levocetirizine 5 mg tablet 5 mg PO QAM citalopram 10 mg tablet 10 mg PO BEDTIME Singulair 10 mg tablet 10 mg PO QAM PRN (Reason: allergies) lisinopril 10 mg tablet 10 mg PO DAILY Qty: 30 0RF hydrocodone-acetaminophen 5-325 mg tablet 1 tab PO Q6H PRN (Reason: pain) Qty: 25 0RF Medrol (Solo) 4 mg tablets,dose pack See Rx Instructions .ROUTE .COMPLEX Qty: 21 0RF Rx Instructions: orally per package directions albuterol sulfate 90 mcg/actuation HFA aerosol inhaler 2 inh INHALATION Q4H PRN (Reason: shortness of breath or wheezing) Qty: 18 0RF Discharge Orders: Discharge ED (Routine); Ordered 08/31/23 Ordered By: Anil Botello Referrals: Sharad Cherry DO [Primary Care Provider] - 1 week Patient Instructions: Cold Symptoms (ED), Upper Respiratory Infection - Adult Activity Restrictions/Additional Instructions: Please take all your medicine as prescribed. Please follow-up with your family practice physician in the next 7 days for further evaluation and treatment. Coding Level of Care Code ED Planner Scheduler for Carol Elizalde
--- NOTE | 2023-08-31 01:56 | XRR_ITS ---
PROCEDURE INFORMATION: Exam: XR Chest Exam date and time: 08/31/2023 2:14 AM Age: 53 years old Clinical indication: Cough and shortness of breath; Additional info: Cough dyspnea TECHNIQUE: Imaging protocol: Radiologic exam of the chest. Views: 1 view. COMPARISON: CR XR chest 2V* [id number] 04/27/2022 12:10 PM FINDINGS: Lungs: Unremarkable. No consolidation. Pleural spaces: Unremarkable. No pleural effusion. No pneumothorax. Heart/Mediastinum: Unremarkable. No cardiomegaly. Bones/joints: Unremarkable. XR/XR chest 1V portable [id number] IMPRESSION: No acute cardiopulmonary findings.
[2023-08-31] MEDS: ipratropium-albuterol 3 mL Neb INHALATION (02:06)
[2023-08-31 02:08] VITALS: PULSE 83; RESP 18; O2SAT 98
[2023-08-31 03:20] VITALS: BP 147/100; PULSE 83; RESP 18; TEMP 37; O2SAT 98
== END 2023-08-31 03:21 | disposition home or self-care (01) ==
PROVIDERS: Emergency Provider Emergency Medicine; PCP Electrodiagnostic Medicine
DX: J06.9 Acute upper respiratory infection, unspecified (principal); I10 Essential (primary) hypertension
CPT/HCPCS: 71045; 94640; 99283

== ENCOUNTER 2023-11-18 15:26 | Emergency (ER) | payer OTHER, SELFPAY ==
[2023-11-18 15:50] VITALS: BP 128/82; PULSE 84; RESP 17; TEMP 36.6; O2SAT 98; BMI 38.6
--- NOTE | 2023-11-18 15:59 | CTR_ITS ---
PROCEDURE INFORMATION: Exam: CT Abdomen And Pelvis With Contrast Exam date and time: 11/18/2023 4:28 PM Age: 53 years old Clinical indication: Abdominal pain; Flank; Left; Additional info: Left abdominal pain TECHNIQUE: Imaging protocol: Computed tomography of the abdomen and pelvis with contrast. Radiation optimization: All CT scans at this facility use at least one of these dose optimization techniques: automated exposure control; mA and/or kV adjustment per patient size (includes targeted exams where dose is matched to clinical indication); or iterative reconstruction. Contrast material: OMNI 350; Contrast volume: 100 ml; Contrast route: INTRAVENOUS (IV); COMPARISON: CT kidney stone [id number] 02/12/2017 2:05 PM RADIATION DOSE METRICS: Total DLP (mGy-cm): 1040.49 FINDINGS: Lungs: Lung bases are clear. No pleural effusion. Liver: Normal. No mass. Gallbladder and biliary ducts: Normal. No calcified stones. No ductal dilation. Pancreas: Normal. No ductal dilation. Spleen: Normal. No splenomegaly. Adrenal glands: Normal. No mass. Kidneys and ureters: There is a 5 mm stone lying in the ureteropelvic junction portion of the left ureter. Mild hydronephrosis is noted. Stomach and bowel: Unremarkable. No obstruction. No mucosal thickening. Appendix: No evidence of appendicitis. Intraperitoneal space: Unremarkable. No free air. No significant fluid collection. Vasculature: Unremarkable. No abdominal aortic aneurysm. Lymph nodes: Unremarkable. No enlarged lymph nodes. Urinary bladder: Unremarkable as visualized. Reproductive: Unremarkable as visualized. Bones/joints: Unremarkable. No acute fracture. Soft tissues: Unremarkable. CT/CT abdomen pelvis w con* [id number] IMPRESSION: 5 mm left UPJ stone with hydronephrosis
--- NOTE | 2023-11-18 16:00 | ED_ITS ---
HPI - Abdominal Pain 2 General: Chief Complaint: Abdominal Pain Stated Complaint: left side pain, nausea Time Seen by Provider: 11/18/23 15:55 History of Present Illness: 53-year-old female with a history of obe sity, asthma, hyperlipidemia, hypertension, depression and migraine headaches with a remote history of kidney stones who presents with left flank pain. Some radiation into her left groin. She says this feels different than when she had kidney stones about 15 years ago. 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 Depression Hypertension Surgical History H/O sinus surgery (~12/27/21) cleaned out sinuses and corrected a deviated septum History of arthroscopic knee surgery (~04/2011) Left History of right tennis elbow (~08/2007) Release History of left tennis elbow (03/20/14) Release. Performed by Dr. Coelho at [facility] [place] History of lithotripsy (~04/2006) History of ankle surgery (~11/2005) Right History of delivery (12/13/02) Performed in [place], [place] History of section (07/06/92) Performed in [place], [place] History of back surgery (~04/2019) Nerve ablation. Dr. Merino at [facility]. Family History Mother Colon cancer dx age 70's Stroke Diabetes Father Heart disease Diabetes Hypertension Denies family history of Ovarian cancer Hyperlipidemia Breast cancer Uterine cancer Thyroid disease Social History Substance/Drug Use: never Physical Exam 2 Narrative: EXAM NARRATIVE: General: Alert, no acute distress. Skin: Warm, dry. Head: Normocephalic, atraumatic. Neck: Supple, trachea midline. Eye: Extraocular movements are intact. Ears, nose, mouth and throat: mucosa moist. Cardiovascular: Regular, Normal peripheral perfusion. Respiratory: Lungs are clear to auscultation, respirations are non-labored, breath sounds are equal, Symmetrical chest wall expansion. Gastrointestinal: Soft, moderate left flank pain, Non distended Musculoskeletal: Normal ROM, no deformity. Neurological: Alert and oriented, No focal neurological deficit observed. Psychiatric: Cooperative, appropriate mood & affect. Course 2 Vital Signs: Vital signs: Vital Signs Temperature 98 F 11/18/23 15:50 Pulse Rate 84 11/18/23 15:50 Respiratory Rate 17 11/18/23 15:50 Blood Pressure 141/86 11/18/23 16:20 Pulse Oximetry 97 11/18/23 17:00 Oxygen Delivery Me thod Room Air 11/18/23 17:00 MDM - Abdominal Pain Medical Decision Making Medical decision making: Differential diagnosis including but not limited to and based on the above HPI, review of systems and physical exam: Ureterolithiasis. Urinary tract infection. Appendicitis. Cholecystis. Musculoskeletal / back pain. Pyelonephritis Orders placed to evaluate differential diagnosis based on the above differential, HPI and physical exam Lab Review: Laboratory results were reviewed and interpreted by myself the emergency room physician. 's mild leukocytosis with a white count of 14.5. No anemia. Mild elevation in her BUN and creatinine at 20 and 1.3. Her creatinine is usually between [address] of the abdomen and pelvis: Patient has a left 5 mm UPJ stone. This was reviewed and interpreted by myself the emergency room physician. I also reviewed the radiology report. I reviewed the patient's medical record. Reexamination: Patient still in clinic with the pain. At this point I ordered Dilaudid and Toradol. No altered mental status. No increased work of breathing. Assessment and plan: Kidney stone ?IV Dilaudid, IV Toradol, IV fluids, IV Zofran. - Discharged home - Discussed findings and plan with patient. Answered any questions. - All laboratory values were reviewed and interpreted personally by myself, the ER physician - All imaging was reviewed and interpreted personally by myself, the ER physician. - Evaluation and treatment of this problem were appropriate in the emergency setting Lab Data 11/18/23 16:03 11/18/23 16:03 Labs/Radiology: Radiology Impressions Abdomen/Pelvis CT 11/18/23 15:59 IMPRESSION: 5 mm left UPJ stone with hydronephrosis Laboratory Results WBC 14.56 10^3/uL (3.29-11.43) H 11/18/23 16:03 RBC 4.83 10^6/uL (3.85-5.65) 11/18/23 16:03 Hgb 13.70 g/dL (11.27-16.99) 11/18/23 16:03 Hct 43.3 % (36-47) 11/18/23 16:03 MCV 89.6 fl (85-98) 11/18/23 16:03 MCH 28.4 pg (27-33) 11/18/23 16:03 MCHC 31.6 g/dL (30-55) 11/18/23 16:03 RDW 12.9 % (12.1-15.1) 11/18/23 16:03 Plt Count 369 10^3/cmm (157-399) 11/18/23 16:03 MPV 8.7 fL (7.4-10.4) 11/18/23 16:03 Neut % (Auto) 81.5 % 11/18/23 16:03 Lymph % (Auto) 11.7 % 11/18/23 16:03 [place] % (Auto) 5.4 % 11/18/23 16:03 Eos % (Auto) 0.5 % 11/18/23 16:03 Baso % (Auto) 0.5 % 11/18/23 16:03 Neut # (Auto) 11.86 10^3/uL (1.8-7.7) H 11/18/23 16:03 Lymph # (Auto) 1.7 10^3/uL (0.8-4.8) 11/18/23 16:03 Simpson # (Auto) 0.8 10^3/uL (0.2-0.9) 11/18/23 16:03 Eos # (Auto) 0.1 10^3/uL (0.0-0.8) 11/18/23 16:03 Baso # (Auto) 0.1 10^3/uL (0.0-0.1) 11/18/23 16:03 Nucleated RBC % (auto) 0 % 11/18/23 16:03 Nucleated RBCs # 0.0 /100WBC 11/18/23 16:03 Sodium 136 mmol/L (136-145) 11/18/23 16:03 Potassium 4.7 mmol/L (3.5-5.1) 11/18/23 16:03 Chloride 104 mmol/L (98-107) 11/18/23 16:03 Carbon Dioxide 22 mmol/L (22-29) 11/18/23 16:03 Anion Gap 14.7 (5-19) 11/18/23 16:03 BUN 20 mg/dL (6-20) 11/18/23 16:03 Creatinine 1.3 mg/dL (0.5-0.9) H 11/18/23 16:03 GFR Calculation 42.5 mL/min (90-130) L 11/18/23 16:03 Glucose 155 mg/dL (65-115) H 11/18/23 16:03 Calculated Osmolality 288 mOsm/kg (285-295) 11/18/23 16:03 Calcium 9.6 mg/dL (8.5-10.5) 11/18/23 16:03 Total Bilirubin 0.2 mg/dL (0.15-1.2) 11/18/23 16:03 AST 16 U/L (0-32) 11/18/23 16:03 ALT 16 U/L (0-33) 11/18/23 16:03 Alkaline Phosphatase 88 U/L (35-105) 11/18/23 16:03 C-Reactive Protein 11.8 mg/L (0.0-4.9) H 11/18/23 16:03 Total Protein 6.9 g/dL (6.6-8.7) 11/18/23 16:03 Albumin 4.0 g/dL (3.5-5.2) 11/18/23 16:03 Globulin 2.9 g/dL (1.3-4.6) 11/18/23 16:03 All radiology interpretation(s) finalized by discharge Discharge Plan Discharge Patient Disposition: Home Clinical Impression: Ureterolithiasis Condition: Stable Prescriptions: New hydrocodone-acetaminophen 5-325 mg tablet 1 tab PO Q6H PRN (Reason: pain) Qty: 20 0RF ondansetron 8 mg tablet,disintegrating 8 mg PO .q6 PRN (Reason: nausea and vomiting) Qty: 14 0RF Flomax 0.4 mg capsule 0.4 mg PO DAILY Qty: 30 0RF cephalexin 500 mg capsule 500 mg PO BID 5 Days Qty: 10 0RF diclofenac sodium 50 mg tablet,delayed release (DR/EC) 50 mg PO Q12H Qty: 20 0RF No Action tramadol 50 mg tablet 50 mg PO TID PRN (Reason: Pain) Hold Instructions: Resume on 01/06/22. Hold until after post op Scott complete estradiol 0.5 mg tablet 0.5 mg PO QDAY Qty: 90 3RF Rx Instructions: take in conjunction with provera Provera 2.5 mg tablet 2.5 mg PO QAM Qty: 90 3RF Rx Instructions: take in conjunction with estradiol (DME) Space Chamber with Large Mask Spacer See Rx Instructions .Route Qty: 1 0RF Rx Instructions: As directed atorvastatin 40 mg tablet 40 mg PO QAM fluticasone propionate 50 mcg/actuation Cosby,Suspension 2 spray INTRANASAL DAILY levocetirizine 5 mg tablet 5 mg PO QAM citalopram 10 mg tablet 10 mg PO BEDTIME Singulair 10 mg tablet 10 mg PO QAM PRN (Reason: allergies) lisinopril 10 mg tablet 10 mg PO DAILY Qty: 30 0RF hydrocodone-acetaminophen 5-325 mg tablet 1 tab PO Q6H PRN (Reason: pain) Qty: 25 0RF Medrol (Solo) 4 mg tablets,dose pack See Rx Instructions .ROUTE .COMPLEX Qty: 21 0RF Rx Instructions: orally per package directions albuterol sulfate 90 mcg/actuation HFA aerosol inhaler 2 inh INHALATION Q4H PRN (Reason: shortness of breath or wheezing) Qty: 18 0RF prednisone 50 mg tablet 50 mg PO DAILY Qty: 5 0RF Discharge Orders: Discharge ED (Routine); Ordered 11/18/23 Ordered By: Usha Edmondson Referrals: Reynaldo Barakat [Referring] - (Please call for an appointment with either Dr. Barakat or the urologist of your choosing.) Sharad Cherry DO [Primary Care Provider] - 4-7 days Discharge Diet: Usual diet Discharge Activity: Increase activity as tolerated Patient Instructions: Kidney Stones (ED), How to Strain Your Urine (ED) Activity Restrictions/Additional Instructions: Call for appointment with urology. If fever (temp >100.4) develops return to the emergency room immediately, as this is an emergency. Take nausea medication prior to taking pain medications. Thank you for choosing [facility] for your healthcare needs today. Please realize this is an emergency room and that we are providing you with a medical screening exam and this may not be complete and all inclusive of all the testing and or work up that you may need to determine your ailment or severity of your illness. You have been screened and evaluated and felt safe for discharge. Health conditions do change or evolve sometimes and as such it is important that you follow up with your Primary Doctor to be re checked, 3-5 days is a general good time frame for follow up. You are always welcome to return to the ED for re assessment if your symptoms are worsening or you have new concerns Coding Level of Care Code ED Manager Foreign for Carol Elizalde
[2023-11-18 16:14] LABS: Basophils # 0.1 10^3/uL (0.0-0.1); Basophils % 0.5 %; Eosinophils # 0.1 10^3/uL (0.0-0.8); Eosinophils % 0.5 %; Hematocrit 43.3 % (36-47); Lymphocytes # 1.7 10^3/uL (0.8-4.8); Lymphocytes % 11.7 %; Mean Corpuscular HGB Conc 31.6 g/dL (30-55); Mean Corpuscular Hemoglobin 28.4 pg (27-33); Mean Corpuscular Volume 89.6 fl (85-98); Mean Platelet Volume 8.7 fL (7.4-10.4); Monocytes # 0.8 10^3/uL (0.2-0.9); Monocytes % 5.4 %; Neutrophils # 11.86 10^3/uL (1.8-7.7); Neutrophils % 81.5 %; Nucleated Red Blood Cells % 0 %; Platelet Count 369 10^3/cmm (157-399); Red Blood Count 4.83 10^6/uL (3.85-5.65); Red Cell Distribution Width 12.9 % (12.1-15.1); White Blood Count 14.56 10^3/uL (3.29-11.43)
[2023-11-18 16:20] VITALS: BP 141/86; O2SAT 98
[2023-11-18 16:28] LABS: Alanine Aminotransferase 16 U/L (0-33); Alkaline Phosphatase 88 U/L (35-105); Anion Gap 14.7 (5-19); Aspartate Amino Transferase 16 U/L (0-32); Blood Urea Nitrogen 20 mg/dL (6-20); C Reactive Protein 11.8 mg/L (0.0-4.9); Calcium 9.6 mg/dL (8.5-10.5); Carbon Dioxide 22 mmol/L (22-29); Chloride 104 mmol/L (98-107); Globulin 2.9 g/dL (1.3-4.6); Glomerular Filtration Rate 42.5 mL/min (90-130); Glucose 155 mg/dL (65-115); Osmolality Calculated 288 mOsm/kg (285-295); Potassium 4.7 mmol/L (3.5-5.1); Sodium 136 mmol/L (136-145); Total Bilirubin 0.2 mg/dL (0.15-1.2); Total Protein 6.9 g/dL (6.6-8.7)
[2023-11-18] MEDS: iohexol 350 mg/mL 500 mL Btl (per mL) IV (16:30)
[2023-11-18 16:59] LABS: Creatinine Clr Calc Pharmacy 56.8453
[2023-11-18 17:00] VITALS: O2SAT 97
[2023-11-18] MEDS: ketorolac 30 mg/mL INJ IVP (17:23)
[2023-11-18] MEDS: sodium chloride 0.9% 1,000 ML 999 ML IV (17:24)
[2023-11-18] MEDS: ondansetron 2 mg/ML SDV 2 mL 8 MG IVP (17:24)
[2023-11-18] MEDS: HYDROmorphone 1 mg/mL INJ 1 mL IVP (17:28)
[2023-11-18] MEDS: HYDROcodone-acetaminophen 5-325 mg Tablet 1 TAB PO (18:02)
== END 2023-11-18 18:09 | disposition home or self-care (01) ==
PROVIDERS: Emergency Provider Emergency Medicine; PCP Electrodiagnostic Medicine
DX: N13.2 Hydronephrosis with renal and ureteral calculous obstruction (principal); I10 Essential (primary) hypertension
CPT/HCPCS: 36415; 74177; 80053; 85025; 86140; 96374; 96375; 99285; J1170; J1885; J2405; J7030; Q9967

== ENCOUNTER 2024-06-04 08:01 | Observation (INO) | payer OTHER, SELFPAY ==
[2024-06-04] VITALS (11 sets, daily range): BP systolic 121–147; BP diastolic 72–107; PULSE 54–88; RESP 12–20; TEMP 36.4–36.7; O2SAT 96–100; BMI 40.0
--- NOTE | 2024-06-04 08:14 | XR_ITS ---
WS: [id number] Portable AP upright chest, 06/04/2024 Clinical Data: Chest pain Comparison: Portable chest, 08/31/2023 Findings: No nodules, masses or effusions are seen. The heart is normal. The pulmonary vascularity is not increased. No pneumonia or pneumothorax is seen. Monitor leads are on the chest wall. XR/XR chest 1V portable [id number] Impression: Negative chest.
--- NOTE | 2024-06-04 08:14 | ECG_ITS ---
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 Measurements Intervals [place] Rate: 86 P: 40 TX: 164 QRS: 3 QRSD: 73 T: 53 QT: 352 QTc: 422 Interpretive Statements SINUS RHYTHM WITH SINUS ARRHYTHMIA LOW QRS VOLTAGE IN PRECORDIAL LEADS [QRS DEFLECTION < 1.0 mV IN CHEST LEADS] SEPTAL MYOCARDIAL INFARCTION , OF INDETERMINATE AGE [40+ ms Q WAVE IN V1/V2] Compared to ECG 04/15/2022 06:41:51 Myocardial infarct finding now present Electronically Signed On 06-05-2024 22:00:38 IMPLEMENTATION ADVISOR by Chris Hua M.D. [email or web address] [id number]
--- NOTE | 2024-06-04 08:29 | W.ED.CHESTPA ---
HPI - Chest Pain General: Chief Complaint: Chest Pain Stated Complaint: Chest pain Time Seen by Provider: 06/04/24 08:10 History of Present Illness: 54-year-old female with a history of hypertension, hyperlipidemia, diabetes and obesity who presents emergency room with chest pain. She says this morning she woke up and had some pain in between her shoulder blades that then moved to her left chest. It is sharp. No nausea or vomiting. No fevers. She has had some congestion and sinus infection . Some mild cough. No abdominal pain. Related Data Home Medications ?Medication ?Instructions ?Recorded ?Confirmed tramadol 50 mg tablet 50 mg PO TID PRN Pain 10/17/19 06/04/24 Held on 12/27/21. Instructions: Resume on 01/06/22. Hold until after post op Nucla complete atorvastatin 40 mg tablet 40 mg PO QAM 02/23/21 06/04/24 citalopram 10 mg tablet 10 mg PO BEDTIME 02/23/21 06/04/24 fluticasone propionate 50 2 spray intranasal DAILY 02/23/21 06/04/24 mcg/actuation nasal spray,suspension levocetirizine 5 mg tablet 5 mg PO QAM 02/23/21 06/04/24 montelukast 10 mg tablet 10 mg PO QAM PRN allergies 12/01/21 06/04/24 (Singulair) azelastine 137 mcg (0.1 %) nasal 1 spray intranasal BID 01/04/24 06/04/24 spray glipizide 10 mg tablet 10 mg PO DAILY 01/04/24 06/04/24 amoxicillin 875 mg-potassium 1 tab PO BID 06/04/24 06/04/24 clavulanate 125 mg tablet ergocalciferol (vitamin D2) 1,250 1 unit PO BID 06/04/24 06/04/24 mcg (50,000 unit) capsule (Vitamin D2) lisinopril 5 mg tablet 5 mg PO DAILY 06/04/24 06/04/24 vitamin B complex 1 cap PO DAILY 06/04/24 06/04/24 Previous Rx's ?Medication ?Instructions ?Recorded inhalat.spacing dev,large mask #1 ea 02/23/21 (Space Chamber with Large Mask) progesterone micronized 100 mg 200 mg (2 x 100 mg) PO BEDTIME #90 01/04/24 capsule (Prometrium) caps estradiol 0.05 mg/24 hr semiweekly See Rx Instructions .Route 04/21/24 transdermal patch (Sobeida) .COMPLEX #24 patches Allergies Allergy/AdvReac Type Severity Reaction Status Date / Time metformin AdvReac Intermediate ADR-Nausea Verified 01/04/24 08:49 Review of Systems Narrative: Constitutional symptoms: Negative except as documented in HPI. Skin symptoms: Negative except as documented in HPI. Eye symptoms: Negative except as documented in HPI. ENMT symptoms: Negative except as documented in HPI. Respiratory symptoms: Negative except as documented in HPI. Cardiovascular symptoms: Negative except as documented in HPI. Gastrointestinal symptoms: Negative except as documented in HPI. Genitourinary symptoms: Negative except as documented in HPI. Musculoskeletal symptoms: Negative except as documented in HPI. Neurologic symptoms: Negative except as documented in HPI. Psychiatric symptoms: Negative except as documented in HPI. Endocrine symptoms: Negative except as documented in HPI. 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 Depression Hypertension Surgical History H/O sinus surgery (~12/27/21) cleaned out sinuses and corrected a deviated septum History of arthroscopic knee surgery (~04/2011) Left History of right tennis elbow (~08/2007) Release History of left tennis elbow (03/20/14) Release. [place] Coelho [place] [facility] History of lithotripsy (~04/2006) History of ankle surgery (~11/2005) Right History of delivery (12/13/02) Performed in [place], [place] History of section (07/06/92) Performed in [place], [place] History of back surgery (~04/2019) Nerve ablation. Dr. Merino at [facility]. Family History Mother Colon cancer dx age 70's Stroke Diabetes Father Heart disease Diabetes Hypertension Denies family history of Ovarian cancer Hyperlipidemia Breast cancer Uterine cancer Thyroid disease Social History (Updated 01/04/24 @ 08:56 by Krysten Colón LPN) Smoking and tobacco/nicotine status: former use of tobacco/nicotine Physical Exam Narrative: EXAM NARRATIVE: General: Alert, no acute distress. Skin: Warm, dry. Head: Normocephalic, atraumatic. Neck: Supple, trachea midline. Eye: Extraocular movements are intact. Ears, nose, mouth and throat: mucosa moist. Cardiovascular: Regular, Normal peripheral perfusion. Respiratory: Lungs are clear to auscultation, respirations are non-labored, breath sounds are equal, Symmetrical chest wall expansion. Gastrointestinal: Soft, Nontender, Non distended Musculoskeletal: Normal ROM, no deformity. Neurological: Alert and oriented, No focal neurological deficit observed. Psychiatric: Cooperative, appropriate mood & affect. Course Vital Signs: Vital signs: Vital Signs Temperature 97.5 F L 06/04/24 08:05 Pulse Rate 73 06/04/24 09:33 Respiratory Rate 18 06/04/24 10:33 Blood Pressure 130/82 06/04/24 08:05 Pulse Oximetry 99 06/04/24 10:33 Oxygen Delivery Me thod Room Air 06/04/24 08:05 MDM - Chest Pain Medical Decision Making Differential diagnosis for patient with chest pain includes but is not limited to and based on the above HPI, review of systems and physical exam: Pneumonia. unstable angina. angina. Acute coronary syndrome / MT. Pulmonary embolism. Costochondritis / musculoskeletal. Pleurisy. Pericarditis. Esophageal spasm. Pancreatis. Cholecystitis. Orders placed to evaluate differential diagnosis based on the above differential, HPI and physical exam EKG: Time 8:07 AM normal sinus rhythm, nonspecific ST changes, no ectopy, normal IL & QRS intervals, This was reviewed and interpreted by myself the ER physician at 8:10 AM. Repeat EKG: Time 9:51 AM. Rate 84. Normal sinus rhythm, No ST-T changes, no ectopy, normal IL & QRS intervals, This was reviewed and interpreted by myself the ER physician at 9:55 AM. No significant changes from EKG done previously today in the emergency room. Repeat EKG time 1053. Rate 64. Normal sinus rhythm, No ST-T changes, no ectopy, normal IL & QRS intervals, This was reviewed and interpreted by myself the ER physician at 1055 AM. No significant changes from EKG done previously today in the emergency room. After receiving nitroglycerin she said the pain in her left chest got better but the pain in her back got worse so an EKG was repeated. No changes from previous. Chest x-ray: No acute process. No infiltrate. No pneumothorax. This was reviewed and interpreted by myself the emergency room physician. I also reviewed the radiology report. Lab Review: Laboratory results were reviewed and interpreted by myself the emergency room physician. No leukocytosis. No anemia. No renal failure. Initial troponin is slightly elevated at 29. Repeat is coming down slightly to 25. I reviewed the patient's medical record. HEART Pathway for Early Discharge in Acute Chest Pain from [employer] on 06/04/2024 All calculations should be rechecked by clinician prior to use RESULT SUMMARY: 6 points HEART Pathway Score High risk 12-65% 30-day MACE Cardiology consultation and admission recommended. Further testing indicated. INPUTS: History ?> 1 = Moderately suspicious EKG ?> 1 = Non-specific repolarization disturbance Age ?> 1 = 45-64 Risk factors ?> 2 = >= risk factors or history of atherosclerotic disease Initial troponin ?> 1 = 1-3x normal limit Reexamination: Nitro improved the chest pain but made her back pain much worse. Morphine has been given. No increased work of breathing. No altered mental status. Consultation: Spoke with Dr. Sarabia who is on-call for the hospitalist service who agrees to admission to observation. Assessment and plan: Chest pain -I discussed the patient with the hospitalist on-call who is admitting the patient. - Discussed findings and plan with patient. Answered any questions. - All laboratory values were reviewed and interpreted personally by myself, the ER physician - All imaging was reviewed and interpreted personally by myself, the ER physician. - Evaluation and treatment of this problem were appropriate in the emergency setting Lab Data 06/04/24 08:09 06/04/24 08:09 Radiology Impressions Chest X-Ray 06/04/24 08:14 Impression: Negative chest. Laboratory Results WBC 10.01 10^3/uL (3.29-11.43) 06/04/24 08:09 RBC 4.84 10^6/uL (3.85-5.65) 06/04/24 08:09 Hgb 14.10 g/dL (11.27-16.99) 06/04/24 08:09 Hct 42.6 % (36-47) 06/04/24 08:09 MCV 88.0 fl (85-98) 06/04/24 08:09 MCH 29.1 pg (27-33) 06/04/24 08:09 MCHC 33.1 g/dL (30-55) 06/04/24 08:09 RDW 12.8 % (12.1-15.1) 06/04/24 08:09 Plt Count 453 10^3/cmm (157-399) H 06/04/24 08:09 MPV 8.8 fL (7.4-10.4) 06/04/24 08:09 Neut % (Auto) 74.2 % 06/04/24 08:09 Lymph % (Auto) 18.0 % 06/04/24 08:09 [place] % (Auto) 6.8 % 06/04/24 08:09 Eos % (Auto) 0.0 % 06/04/24 08:09 Baso % (Auto) 0.4 % 06/04/24 08:09 Neut # (Auto) 7.43 10^3/uL (1.8-7.7) 06/04/24 08:09 Lymph # (Auto) 1.8 10^3/uL (0.8-4.8) 06/04/24 08:09 [place] # (Auto) 0.7 10^3/uL (0.2-0.9) 06/04/24 08:09 Eos # (Auto) 0.0 10^3/uL (0.0-0.8) 06/04/24 08:09 Baso # (Auto) 0.0 10^3/uL (0.0-0.1) 06/04/24 08:09 Nucleated RBC % (auto) 0 % 06/04/24 08:09 Nucleated RBCs # 0.0 /100WBC 06/04/24 08:09 D-Dimer <= 0.27 ug/mLFEU (0-0.59) 06/04/24 08:09 Sodium 139 mmol/L (136-145) 06/04/24 08:09 Potassium 4.3 mmol/L (3.5-5.1) 06/04/24 08:09 Chloride 102 mmol/L (98-107) 06/04/24 08:09 Carbon Dioxide 22 mmol/L (22-29) 06/04/24 08:09 Anion Gap 19.3 (5-19) H 06/04/24 08:09 BUN 18 mg/dL (6-20) 06/04/24 08:09 Creatinine 1.1 mg/dL (0.5-0.9) H 06/04/24 08:09 GFR Calculation 51.4 mL/min (90-130) L 06/04/24 08:09 Glucose 127 mg/dL (65-115) H 06/04/24 08:09 Calculated Osmolality 291 mOsm/kg (285-295) 06/04/24 08:09 Calcium 9.5 mg/dL (8.5-10.5) 06/04/24 08:09 Total Bilirubin 0.3 mg/dL (0.15-1.2) 06/04/24 08:09 AST 27 U/L (0-32) 06/04/24 08:09 ALT 27 U/L (0-33) 06/04/24 08:09 Alkaline Phosphatase 107 U/L (35-105) H 06/04/24 08:09 Troponin T Baseline 29 ng/L (0-10) H 06/04/24 08:09 Troponin T 120 Minute 24.64 ng/L (0-10) H 06/04/24 09:45 Delta Troponin T -4.36 ABS# (0-10) L 06/04/24 09:45 C-Reactive Protein 3.8 mg/L (0.0-4.9) 06/04/24 08:09 Total Protein 6.8 g/dL (6.6-8.7) 06/04/24 08:09 Albumin 4.5 g/dL (3.5-5.2) 06/04/24 08:09 Globulin 2.3 g/dL (1.3-4.6) 06/04/24 08:09 Urine Color Dark yellow (Yellow) A 06/04/24 08:35 Urine Appearance Clear (CLEAR) 06/04/24 08:35 Urine pH 6.0 (5-7) 06/04/24 08:35 Ur Specific [place] 1.029 (1.005-1.030) 06/04/24 08:35 Urine Protein Negative (Negative) 06/04/24 08:35 Urine Glucose (UA) Negative (Normal) 06/04/24 08:35 Urine Ketones Trace (Negative) 06/04/24 08:35 Urine Blood Negative (Negative) 06/04/24 08:35 Urine Nitrate Negative (Negative) 06/04/24 08:35 Urine Bilirubin Negative (Negative) 06/04/24 08:35 Urine Urobilinogen 1.0 mg/dL (Negative) 06/04/24 08:35 Ur Leukocyte Esterase Negative (Negative) 06/04/24 08:35 Urine RBC 0-2 /hpf (0-2) 06/04/24 08:35 Urine WBC 0-5 /hpf (0-5) 06/04/24 08:35 Ur Squamous Epith Cells 0-5 /hpf (0-5) 06/04/24 08:35 Amorphous Sediment Not Reportable 06/04/24 08:35 Urine Bacteria None seen /hpf (NONE) 06/04/24 08:35 Hyaline Casts 9.07 /lpf 06/04/24 08:35 Coronavirus (PCR) Negative (Negative) 06/04/24 08:27 Influenza A (PCR) Negative (Negative) 06/04/24 08:27 Influenza Type B (PCR) Negative (Negative) 06/04/24 08:27 RSV (PCR) Negative (Negative) 06/04/24 08:27 All radiology interpretation(s) finalized by discharge Clincial Decision Support The following clinical decision support tools were used to aid in care of the patient HEART Score -> History: Moderately Suspicious, EKG: Non-specific Changes, Age: 45-64 yrs, Risk Factors: >/=3 Risk Factors, Troponin: Baseline Trop 16-45 ng/L. Resulting HEART Score: 6. Discharge Plan Discharge Patient Disposition: Placed in Observation Clinical Impression: Chest pain Coding Level of Care Code ED Clipper Machine for Carol Elizalde
[2024-06-04 08:30] LABS: Basophils % 0.4 %; Hematocrit 42.6 % (36-47); Lymphocytes # 1.8 10^3/uL (0.8-4.8); Mean Corpuscular HGB Conc 33.1 g/dL (30-55); Mean Corpuscular Hemoglobin 29.1 pg (27-33); Mean Platelet Volume 8.8 fL (7.4-10.4); Monocytes # 0.7 10^3/uL (0.2-0.9); Monocytes % 6.8 %; Neutrophils # 7.43 10^3/uL (1.8-7.7); Neutrophils % 74.2 %; Nucleated Red Blood Cells % 0 %; Platelet Count 453 10^3/cmm (157-399); Red Blood Count 4.84 10^6/uL (3.85-5.65); Red Cell Distribution Width 12.8 % (12.1-15.1); White Blood Count 10.01 10^3/uL (3.29-11.43)
[2024-06-04 08:41] LABS: Troponin(5th) Baseline 29 ng/L (0-10)
[2024-06-04 08:43] LABS: Alanine Aminotransferase 27 U/L (0-33); Albumin Level 4.5 g/dL (3.5-5.2); Alkaline Phosphatase 107 U/L (35-105); Aspartate Amino Transferase 27 U/L (0-32); Blood Urea Nitrogen 18 mg/dL (6-20); C Reactive Protein 3.8 mg/L (0.0-4.9); Calcium 9.5 mg/dL (8.5-10.5); Carbon Dioxide 22 mmol/L (22-29); Chloride 102 mmol/L (98-107); Creatinine Clr Calc Pharmacy 67.2083; Globulin 2.3 g/dL (1.3-4.6); Glomerular Filtration Rate 51.4 mL/min (90-130); Glucose 127 mg/dL (65-115); Osmolality Calculated 291 mOsm/kg (285-295); Sodium 139 mmol/L (136-145); Total Bilirubin 0.3 mg/dL (0.15-1.2); Total Protein 6.8 g/dL (6.6-8.7)
[2024-06-04 08:47] LABS: Anion Gap 19.3 (5-19); Potassium 4.3 mmol/L (3.5-5.1)
[2024-06-04] MEDS: aspirin 81 mg Chew Tablet 324 MG PO (08:48)
[2024-06-04 08:52] LABS: Bilirubin Urine Negative (Negative); Blood Urine Negative (Negative); Glucose Urine UA Negative (Normal); Ketones Urine Trace (Negative); Leukocyte Esterase Urine Negative (Negative); Nitrate Urine Negative (Negative); Protein Urine Negative (Negative); Specific Gravity, Urine 1.029 (1.005-1.030); Urine Appearance Clear (CLEAR); Urine Color Dark Yellow (Yellow)
[2024-06-04 08:54] LABS: Bacteria Urine None Seen /hpf; Hyaline Casts Urine 9.07 /lpf; RBC Urine 0-2 /hpf (0-2); Squamous Epithelial Cell Urine 0-5 /hpf (0-5); WBC Urine 0-5 /hpf (0-5)
[2024-06-04 09:09] LABS: UA Slide Review UA Slide Review Perf
[2024-06-04 09:22] LABS: Influenza A NEGATIVE (Negative); Influenza B NEGATIVE (Negative); Respiratory Syncytial Virus Ce NEGATIVE (Negative); SARS-CoV-2 PCR NEGATIVE (Negative)
[2024-06-04] MEDS: nitroglycerin 0.4 mg sublingual Tablet SUBLINGUAL (09:56)
--- NOTE | 2024-06-04 10:14 | ECG_ITS ---
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 Measurements Intervals [place] Rate: 84 P: 30 HI: 168 QRS: -9 QRSD: 74 T: 57 QT: 361 QTc: 429 Interpretive Statements SINUS RHYTHM LOW QRS VOLTAGE IN PRECORDIAL LEADS [QRS DEFLECTION < 1.0 mV IN CHEST LEADS] SEPTAL MYOCARDIAL INFARCTION , OF INDETERMINATE AGE [40+ ms Q WAVE IN V1/V2] Compared to ECG 06/04/2024 08:07:51 Sinus arrhythmia no longer present Myocardial infarct finding still present Electronically Signed On 06-05-2024 22:19:51 LEAF STAMPER by Chris Hua M.D. [email or web address]
[2024-06-04 10:18] LABS: Troponin 5 2HR 24.64 ng/L (0-10); Troponin 5 2HR Delta -4.36 ABS# (0-10)
[2024-06-04] MEDS: ondansetron 2 mg/ML SDV 2 mL 4 MG IVP (10:33)
[2024-06-04] MEDS: morphine 4 mg/mL SDV 1 mL IVP (10:33)
[2024-06-04 11:35] LABS: D Dimer <= 0.27 ug/mLFEU (0-0.59)
--- NOTE | 2024-06-04 12:00 | CT_ITS ---
WS: [id number] CTA THORACIC AORTA WITH CONTRAST. HISTORY: evaluate aorta, LEFT scapular pain and back pain. No trauma. TECHNIQUE: CTA imaging of the thorax is performed with and without contrast. After noncontrast imaging is performed, CT angiogram is performed during injection of Omnipaque 350; 100 mL IV.. Sagittal and coronal reconstructions, sagittal and coronal MIP imaging is submitted. All CT scans at [facility] use at least one of these dose optimization techniques: automated exposure control; mA and/or kV adjustment per patient size (includes targeted exams where dose is matched to clinical indication); or iterative reconstruction. DLP: 864.49 mGy.cm COMPARISON: 03/22/2021 Good contrast opacification of the thoracic aorta and also the pulmonary artery. Normal ascending aorta and descending aorta. No dissection or aneurysm. No ulcerated plaque identified. Bovine arch. Great vessels are normal caliber. Diffuse groundglass attenuation and mild mosaic attenuation throughout both lungs. No dense areas of consolidation. No lobar collapse or mass. No pneumothorax. Pulmonary arteries dilated measuring 3.3 mm. No pulmonary embolism. No adenopathy. Mild increase in epicardial fat. Small hiatal hernia. Hepatic steatosis. No adrenal mass. Visualized suprarenal aorta is negative. No destructive bone lesions. No abnormality involving the LEFT scapula. CT/CT angio chest [id number] IMPRESSION: 1. No thoracic aortic aneurysm or dissection. No ulcerated plaque. 2. Mild pulmonary artery dilatation. No pulmonary emboli. 3. Mild bilateral groundglass attenuation and mosaic attenuation throughout trisha th lungs. Most consistent with hypersensitivity pneumonia or air trapping. No m ass or consolidation. 4. Normal size heart. 5. Small hiatal hernia. 6. No mediastinal or hilar adenopathy.
[2024-06-04] MEDS: HYDROmorphone 1 mg/mL INJ 1 mL IVP (12:09)
[2024-06-04] MEDS: iohexol 350 mg/mL 500 mL Btl (per mL) IV (13:04)
--- NOTE | 2024-06-04 13:45 | PM.HP ---
Providers/Chief Complaint Admitting Physician: Paul Sarabia Primary Care Provider: Sharad Cherry DO Chief Complaint: Chest pain History of Present Illness Pleasant 54-year-old lady with history of postmenopausal hormone replacement therapy, hypertension, diabetes, obesity, history of PA, CHF, and her father starting her 60s, she used to smoke but quit over 20 years ago, started having chest pain, sharp, left-sided chest, or radiating around her chest toward the back as well as into the left shoulder and arm. Not getting worse with deep breaths. She did have some flulike illness last week but with improvement. Minimal if any residual cough. Denies any recurrent episodes of chest pressure, prior history of coronary disease diagnosed or treated in herself. She received nitroglycerin, hydromorphone in ER. With resulting partial relief of pain, currently down to about 6/10. There is some palpable discomfort in the left side posterior chest. She does have some mild troponin elevation 29-25. Review of Systems Const: Denies: fever(s), chills, body aches or malaise Card: Reports: chest pain; Denies: edema, pre-syncope or dyspnea on exertion Resp: Denies: dyspnea, productive cough, change in phlegm color or hemoptysis GI: Denies: abdominal pain, nausea, vomiting, diarrhea, constipation, hematochezia or melena : Denies: flank pain, urinary frequency or hematuria Musc: Denies: back pain, joint swelling or joint redness Skin/Breast: Denies: rash or new lesions Neuro: Denies: headache(s), dizziness or confusion Medications/Allergies Home Medications ?Medication ?Instructions ?Recorded ?Confirmed ?Last Taken ?Type tramadol 50 mg tablet 50 mg PO TID PRN Pain 10/17/19 06/04/24 12/26/21 History Held on 12/27/21. Instructions: Resume on 01/06/22. Hold until after post op [place] complete atorvastatin 40 mg tablet 40 mg PO QAM 02/23/21 06/04/24 06/04/24 History citalopram 10 mg tablet 10 mg PO BEDTIME 02/23/21 06/04/24 06/03/24 History fluticasone propionate 50 2 spray intranasal DAILY 02/23/21 06/04/24 12/26/21 History mcg/actuation nasal spray,suspension inhalat.spacing dev,large mask #1 ea 02/23/21 06/04/24 Unknown Rx (Space Chamber with Large Mask) levocetirizine 5 mg tablet 5 mg PO QAM 02/23/21 06/04/24 06/04/24 History montelukast 10 mg tablet 10 mg PO QAM PRN allergies 12/01/21 06/04/24 06/04/24 History (Singulair) azelastine 137 mcg (0.1 %) nasal 1 spray intranasal BID 01/04/24 06/04/24 06/04/24 History spray glipizide 10 mg tablet 10 mg PO DAILY 01/04/24 06/04/24 06/04/24 History progesterone micronized 100 mg 200 mg (2 x 100 mg) PO BEDTIME #90 01/04/24 06/04/24 06/03/24 Rx capsule (Prometrium) caps estradiol 0.05 mg/24 hr semiweekly See Rx Instructions .Route 04/21/24 06/04/24 Unknown Rx transdermal patch (Sobeida) .COMPLEX #24 patches amoxicillin 875 mg-potassium 1 tab PO BID 06/04/24 06/04/24 06/04/24 History clavulanate 125 mg tablet ergocalciferol (vitamin D2) 1,250 1 unit PO BID 06/04/24 06/04/24 Unknown History mcg (50,000 unit) capsule (Vitamin D2) lisinopril 5 mg tablet 5 mg PO DAILY 06/04/24 06/04/24 Unknown History vitamin B complex 1 cap PO DAILY 06/04/24 06/04/24 Unknown History Allergies Allergy/AdvReac Type Severity Reaction Status Date / Time metformin AdvReac Intermediate ADR-Nausea Verified 01/04/24 08:49 PFSH Acute PFSH: Medical History No pertinent past medical history Neg hx: DM, thyroid, DVT/PE PCP: Dilip Migraine headache 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 Depression Hypertension Surgical History H/O sinus surgery (~12/27/21) cleaned out sinuses and corrected a deviated septum History of arthroscopic knee surgery (~04/2011) Left History of right tennis elbow (~08/2007) Release History of left tennis elbow (03/20/14) Release. [place] [facility] [place] of lithotripsy (~04/2006) History of ankle surgery (~11/2005) Right History of delivery (12/13/02) Performed in [place], [place] History of section (07/06/92) Performed in [place], [place] History of back surgery (~04/2019) Nerve ablation. Dr. Merino at [facility]. Family History Mother Colon cancer dx age 70's Stroke Diabetes Father Heart disease Diabetes Hypertension Denies family history of Ovarian cancer Hyperlipidemia Breast cancer Uterine cancer Thyroid disease Social History Smoking and tobacco/nicotine status: former use of tobacco/nicotine Vitals/I&O/Wt Last Vital Signs Temp 97.5 F L 06/04/24 08:05 Pulse 67 06/04/24 13:14 Resp 18 06/04/24 12:13 BP 147/80 06/04/24 12:13 Pulse Ox 99 06/04/24 13:14 O2 Del Method Room Air 06/04/24 13:14 Weight last 48 hrs Weight 104.326 kg Physical Exam Narrative: Accompanied by her . Const: COMMON NORMALS: patient oriented x3 and alert GENERAL APPEARANCE: cooperative ORIENTATION/CONSCIOUSNESS: Yes awake HENMT: COMMON NORMALS: oropharynx normal Neck/C-Spine: COMMON NORMALS: no JVD Chest: OTHER: Some reproducibility of chest pain on palpation of posterior left rib cage. Resp: COMMON NORMALS: normal respiratory effort and clear to auscultation bilaterally AUSCULTATION: clear to auscultation bilaterally Cardio: COMMON NORMALS: no JVD, regular rhythm, S1 normal heart sound present, S2 normal heart sound present and No murmurs present (Cardio) RHYTHM: regular rhythm HEART SOUNDS: S1 normal heart sound present and S2 normal heart sound present GI: COMMON NORMALS: Normal to inspection, nondistended, normoactive bowel sounds present, Soft to palpation and non-tender PALPATION: Yes Soft to palpation Extremity: COMMON NORMALS: no joint enlargement and no pedal edema Neuro: COMMON NORMALS: patient oriented x3 and moves all extremities SENSORIUM/ORIENTATION: Yes alert Skin: COMMON NORMALS: no rashes or lesions noted GENERAL SKIN EXAM: no rashes or lesions noted Data 06/04/24 08:09 06/04/24 08:09 A&P Assessment and plan (1) Chest pain: Chest pain since this morning, left-sided, sharp, radiating around the chest or the back, and into the left arm, partially relieved with nitroglycerin, hydromorphone. Recent flulike illness with some mild cough. Otherwise spontaneously resolved. D-dimer assessed and not elevated. Denies prior history of known CAD in herself. He is on hormone replacement therapy after menopause, former smoker but quit more than 20 years ago, but does have history of diabetes, hypertension, obesity, Heart disease in her father starting in his 60s including PA, CHF. With chest pain rating to the back additionally assessed with CT angiogram chest. No aortic aneurysm or dissection is noted. Mild pulmonary artery dilation, no PEs. Bilateral GG attenuation and mosaic attenuation throughout both lungs. Consistent with hypersensitivity pneumonia or air trapping. No mass or consolidation. Small hiatal hernia. No mediastinal or hilar adenopathy. Requesting respiratory viral panel as well. She is still having chest pain 10/07. There is some reproducibility on palpation of the posterior left rib cage. Area, with risk factors, troponin related at 29 baseline, 25 at 2 hours, ongoing chest pain, discussed with her concern for possible unstable angina. She has received aspirin, continue 2025 mg daily. Start anticoagulation with Lovenox. As she is having ongoing pain we will give nitroglycerin drip. Monitor telemetry with risk of arrhythmia. Monitor blood pressure with hypertension. Additional assessment with TTE. Additional consultation with cardiology with possible unstable angina. Discussed with cardiology, patient appreciated consultation. Reviewed vitals, CBC, D-dimer, CMP, troponin, UA, COVID, influenza, RSV PCR, chest x-ray, CTA, EKG. On my interpretation Q wave in V1, V2. T wave inversion in V2. Pending official read. Add beta-pipo, statin. Check lipid profile, A1c. (2) Hypertension: Blood pressure elevated 147/80. Would benefit from further optimization. Resume lisinopril 5 mg. Also starting metoprolol 12.5 mg. Qualifiers: Hypertension type: unspecified Qualified Code(s): I10 - Essential (primary) hypertension (3) Ground glass opacity present on imaging of lung: Assess respiratory viral panel. Possible hypersensitivity pneumonia? For now will give inhaled budesonide. Continue levocetirizine. Would benefit from follow-up with pulmonology. Plan Hyperglycemia: Glucose 127. Check A1c. PDMP PDMP Reviewed: Not Reviewed Attestations Medical Necessity Statement*: Place in observation for additional assessment management of unstable angina. Diagnoses Chest pain R07.9 Hypertension I10 Hypertension type: unspecified Ground glass opacity present on imaging of lung R91.8
--- NOTE | 2024-06-04 14:20 | ECG_ITS ---
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 Measurements Intervals [place] Rate: 64 P: 33 [place]: 175 QRS: -1 QRSD: 84 T: 59 QT: 415 QTc: 428 Interpretive Statements SINUS RHYTHM LOW QRS VOLTAGE IN PRECORDIAL LEADS [QRS DEFLECTION < 1.0 mV IN CHEST LEADS] SEPTAL MYOCARDIAL INFARCTION , OF INDETERMINATE AGE [40+ ms Q WAVE IN V1/V2] Compared to ECG 06/04/2024 09:51:52 No significant changes Electronically Signed On 06-05-2024 22:19:08 PALEONTOLOGY TEACHER by Chris Hua M.D. [email or web address]
--- NOTE | 2024-06-04 14:25 | USCV_ITS ---
Lisa Pichardo Age: 54 Gender: F : 1970 Exam Date: 06/04/2024 16:33 Ordering Phys: Paul Sarabia MD Technologist: CT Exam Location: [facility] [place] Indication: ua BP: 145 / 96 HR: 64 Rhythm: Sinus Technical Quality: Adequate MEASUREMENTS (Male / Female) Normal Values 2D ECHO LVOT Diameter 1.9 cm LV Ejection Fraction MOD 4C 60.3 % LV Ejection Fraction MOD 2C 73.8 % LV Ejection Fraction 2C AL 72.9 % LA Diameter 2.7 cm RA Systolic Volume 4C AL 35.0 ml RA Systolic Volume 4C MOD 33.6 ml LA Sys Volume AL 45.7 cm cubed LA Sys Volume Index AL 20.5 cm cubed/m squared Aorta at Sinotubular Diameter 2.6 cm IVC Diameter 1.6 cm M-MODE LA Ao Ratio MM 1.8 AV Cusp Separation MM 1.7 cm DOPPLER AV Peak Velocity 127.0 cm/s LVOT Peak Velocity 115.0 cm/s AV Area Cont Eq vti 3.2 cm squared AV Area Cont Eq pk 2.5 cm squared MV Peak Velocity 104.0 cm/s MV Area PHT 2.9 cm squared Mitral E to A Ratio 1.2 TV Peak E Velocity 63.0 cm/s PV Peak Velocity 94.5 cm/s FINDINGS Left Ventricle Left ventricle is normal size. LV systolic function is normal with EF of 55 to 60%. No regional wall motion abnormalities are seen. Right Ventricle Normal in size and function Right Atrium Normal in size Left Atrium Normal in size Mitral Valve Structurally normal mitral valve. Mild mitral regurgitation. Aortic Valve Structurally normal aortic valve. No significant stenosis or regurgitation. Tricuspid Valve Mild tricuspid regurgitation. Insufficient TR jet to calculate RVSP Pulmonic Valve Trace pulmonic regurgitation Pericardium Normal Aorta Normal in size IVC Appears to be normal CONCLUSIONS LV systolic function is normal with EF of 55-60%. Mild mitral regurgitation Mild tricuspid regurgitation Trace pulmonic regurgitation No comparison studies are available. Chris Hua MD (Electronically Signed) Final Date: 05 June 2024 08:56 S
[2024-06-04 14:38] LABS: Troponin 5 6HR 23.16 ng/L (0-10)
[2024-06-04 14:45] LABS: Troponin 5 6HR Delta -5.84 ng/L (0-12)
[2024-06-04] MEDS: enoxaparin 100 mg/mL Syringe SUBCUT (15:21)
[2024-06-04 15:55] LABS: Chol HDL Ratio 2.59 mg/dL (0.0-4.40); Cholesterol 132 mg/dL (0-200); Estmated Average Glucose 123; HDL Cholesterol 51 mg/dL (60-100); Hemoglobin A1C 5.9 % (4.0-6.0); LDL Cholesterol Calculated 59 mg/dL (50-129); LDL HDL Ratio 1.16 RATIO (0.00-3.22); Triglycerides 111 mg/dL (0-150)
--- NOTE | 2024-06-04 17:04 | P.CONIM_ITS ---
<Statement entered by Paul Louise MD - 06/04/24 23:44> Patient was evaluated and cared for in conjunction with an advanced practice practitioner. I personally examined the patient and reviewed the chart and all pertinent data including imaging, telemetry, and laboratory results. I discussed the patient in detail with the advanced practice practitioner. Please see their note for complete H&P testing result and agreed upon plan of care for the patient. 54-year-old female with atypical chest pain non-smoker and history of Hightower's palsy she is rule out for acute coronary syndrome currently chest pain-free, this is only 1 episode of chest pain without any prior occurrence it was at rest and nonexertional GENERAL: Patient is alert, awake and oriented x3. HEART: Regular S1 and S2. No murmur, rub or gallop. LUNGS: Clear to auscultate bilaterally. CENTRAL NERVOUS SYSTEM: Grossly nonfocal. EXTREMITIES: Lower extremities with out edema bilaterally. Assessment and plan Atypical chest pain Hypertension Proceed with Lexiscan MIBI stress test Echocardiogram to rule out wall motion abnormality Further plan will be advised as per progress of the patient Providers/Reason For Consult 2 Consulting Physician/Specialty*: Paul Louise MD Reason for Consult*: Chest pain Requesting Physician: Dr. Paul Sarabia Attending Physician: Paul Sarabia Primary Care Provider: Sharad Cherry DO History of Present Illness History of Present Illness This is a very pleasant 54-year-old female who has a history of hypertension diabetes obesity, CKD current creat 1.1, non-smoker. She came into the ER today due to sharp back pain that started this morning around 7:15 AM. She states its right below her shoulders and is very sharp. She states it then radiated to her chest and she felt chest pressure that went to her shoulder. She states this has resolved and she only has back pain at this time. She states she has no history of back issues. She received nitroglycerin and Dilaudid in the ER with some pain relief. She had mild troponin elevation 29?25. She denies any significant history of coronary artery disease. She is currently on a nitro drip, Lovenox subcu every 12 hours, aspirin 325 daily, atorvastatin 40 mg daily, lisinopril 5 mg, metoprolol 12.5 twice daily. She denies any chest pain or shortness of breath at this time. Review of Systems 2 Narrative: 6 consitutional: denies fever, chills, b evan aches, or changes in appetite, denies abnormal weight loss Eyes: Denies changes in vision Card: Denies chest pain at this time, palpitations, irregular heart rhythm, edema, syncope, shortness of breath, orthopnea, leg pain with exertion Resp: Denies shortness of breath, denies hemoptysis, denies cough GI: denies abdominal pain, denies nausea or voimting, denies blood in stool : denies blood in urine, denies dysuria Musc: Reports sharp pain at the center of her back below shoulder blades Skin: Denies rash, lesions, or wounds, denies changes to skin color Neuro: Denies nubmness in extremities, h/a, s/s of stroke Ranjit: Denies easy bruiding/bleeding Medications/Allergies Home Medications ?Medication ?Instructions ?Recorded ?Confirmed ?Last Taken ?Type tramadol 50 mg tablet 50 mg PO TID PRN Pain 06/04/24 12/26/21 History Held on 12/27/21. Instructions: Resume on 01/06/22. Hold until after post op [place] complete atorvastatin 40 mg tablet 40 mg PO QAM 02/23/2106/04/24 History citalopram 10 mg tablet 10 mg PO BEDTIME 02/23/2106/03/24 History fluticasone propionate 50 2 spray intranasal DAILY 06/04/24 12/26/21 History mcg/actuation nasal spray,suspension inhalat.spacing dev,large mask #1 ea 02/23/21 06/04/24 Unknown Rx (Space Chamber with Large Mask) levocetirizine 5 mg tablet 5 mg PO QAM 02/23/2106/04/24 History montelukast 10 mg tablet 10 mg PO QAM PRN allergies 0 12/01/21 06/04/24 06/04/24 History (Singulair) azelastine 137 mcg (0.1 %) nasal 1 spray intranasal BI D 01/04/24 06/04/24 06/04/24 History spray glipizide 10 mg tablet 10 mg PO DAILY 01/04/2409/2106/04/24 History progesterone micronized 100 mg 200 mg (2 x 100 mg) PO BEDTIME #90 01/04/24 06/04/24 06/03/24 Rx capsule (Prometrium) caps estradiol 0.05 mg/24 hr semiweekly See Rx Instructions .Route 04/21/24 06/04/24 Unknown Rx transdermal patch (Sobeida) .COMPLEX #24 patches amoxicillin 875 mg-potassium 1 tab PO BID 06/04/2409/2106/04/24 History clavulanate 125 mg tablet ergocalciferol (vitamin D2) 1,250 1 unit PO BID 06/04/24 Unknown History mcg (50,000 unit) capsule (Vitamin D2) lisinopril 5 mg tablet 5 mg PO DAILY 06/04/2406/04 Unknown History vitamin B complex 1 cap PO DAILY 06/04/2409/21 Unknown History Allergies Allergy/AdvReac Type Severity Reaction Status Date / Time metformin AdvReac Intermediate ADR-Nausea Verified 01/04/24 08:49 Current Medications Generic Name Dose Route Start Last Admin Trade Name Freq PRN Reason Stop Dose Admin Enoxaparin Sodium 100 mg 06/04/24 14:30 06/04/24 15:21 Enoxaparin 100 Mg/Ml Syringe 1 mg/kg (100 mg) 100 mg SUBCUT Administration Q12H LAILA PFSH Acute 2 PFSH: Medical History No pertinent past medical history Neg hx: DM, thyroid, DVT/PE PCP: Dilip Migraine headache 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 Depression Hypertension Surgical History H/O sinus surgery (~12/27/21) cleaned out sinuses and corrected a deviated septum History of arthroscopic knee surgery (~04/2011) Left History of right tennis elbow (~08/2007) Release History of left tennis elbow (03/20/14) Release. Performed by Dr[facility] Coelho at [facility] History of lithotripsy (~04/2006) History of ankle surgery (~11/2005) Right History of delivery (12/13/02) Performed in [place], [place] History of section (07/06/92) Performed in [place], [place] History of back surgery (~04/2019) Nerve ablation. Dr. Merino at [facility]. Family History Mother Colon cancer dx age 70's Stroke Diabetes Father Heart disease Diabetes Hypertension Denies family history of Ovarian cancer Hyperlipidemia Breast cancer Uterine cancer Thyroid disease Social History Smoking and tobacco/nicotine status: former use of tobacco/nicotine Vitals/I&O/Wt Last Vital Signs Temp 97.5 F L 06/04/24 08:05 Pulse 71 06/04/24 15:46 Resp 12 06/04/24 15:46 BP 121/72 06/04/24 15:46 Pulse Ox 98 06/04/24 15:46 O2 Del Method Room Air 06/04/24 15:30 Weight last 48 hrs Weight 230 lb Physical Exam 2 Narrative: General: No apparent distress, healthy appearing, well nourished HENMT: normoceophalic Neck: No carotid bruit bilaterally Muskuloskeletal: Full ROM Lymphatic: no lymphedema noted Respiratory: Normal respiratory effort, clear to auscultation bilaterally throughout all lung lu, no use of accessory muscles Cardio: No JVD, regular rate, regular rhythm, S1 S2 normal, no murmurs, peripheral pulses 2+ radial palpated bilaterally GI: obese Extremities: Full ROM, normal, normal capillary refill, no cyanosis or edema Neuro: Alert and oriented x4, no focal motor deficits Psych: Affect normal, denies suicidal ideation, mental status grossly normal Skin: No rashes or lesions noted, no wounds Data 06/04/24 08:09 06/04/24 08:09 A&P Assessment and plan (1) Chest pain: Qualifiers: Chest pain type: unspecified Qualified Code(s): R07.9 - Chest pain, unspecified (2) Hypertension: Qualifiers: Hypertension type: unspecified Qualified Code(s): I10 - Essential (primary) hypertension (3) Back pain: Qualifiers: Back pain location: back pain in other location Chronicity: acute Q ualified Code(s): M54.89 - Other dorsalgia (4) Type 2 diabetes mellitus: Qualifiers: Diabetes mellitus complication status: without complication Diabetes mellitus watermaster insulin use: unspecified shelter insulin use status Q ualified Code(s): E11.9 - Type 2 diabetes mellitus without complications Plan Patient has slightly elevated troponin but stable. EKG with no acute ST or T wave abnormalities. She has no chest pain at this time. Chest pain is atypical, although she has risk factors for coronary artery disease. I recommend obtaining stress test. Echo has been done. She is currently on nitro dip. If stress test is normal, no futher investigation necessary. If it is positive, she will nee a heart cath. Thank you for allowing us to care for this very pleasant 54 year old female. PDMP PDMP Reviewed: Not Reviewed Coding Level of Care Code [facility] Chest pain, unspecified type R07.9 Chest pain type: unspecified Hypertension I10 Hypertension type: unspecified Other acute back pain M54.89 Back pain location: back pain in other location Chronicity: acute Type 2 diabetes mellitus without complication, unspecified whether shelter insulin use E11.9 Diabetes mellitus complication status: without complication Diabetes mellitus watermaster insulin use: unspecified shelter insulin use status
[2024-06-04] MEDS: nitroglycerin drip 50 MG/250 ML PREMIX IV (17:14)
--- NOTE | 2024-06-04 17:16 | PC.NURSE ---
patient still complaining of pain in her left back. Nurse started nitroglycerin gtt to see if any of the pain was relieved. Starting dose at 10 per protocol.
--- NOTE | 2024-06-04 17:48 | PC.NURSE ---
Dr Louise gave verbal order for order for hydrocodone 5-325 for pain. Order entered.
[2024-06-04] MEDS: HYDROcodone-acetaminophen 5-325 mg Tablet 1 TAB PO (18:35)
[2024-06-04 20:48] LABS: Adenovirus Not Detected (NOT DETECT); Chlamydia Pneumoniae Not Detected (NOT DETECT); Human Metapneumovirus Not Detected (NOT DETECT); Human Rhinovirus/Enterovirus Not Detected (NOT DETECT); Influenza A Not Detected (NOT DETECT); Influenza A H1 Not Detected (NOT DETECT); Influenza A H1-2009 Not Detected (NOT DETECT); Influenza A H3 Not Detected (NOT DETECT); Influenza B Not Detected (NOT DETECT); Mycoplasma Pneumoniae Not Detected (NOT DETECT); Parainfluenza Virus Type 1 Not Detected (NOT DETECT); Parainfluenza Virus Type 2 Not Detected (NOT DETECT); Parainfluenza Virus Type 3 Not Detected (NOT DETECT); Parainfluenza Virus Type 4 Not Detected (NOT DETECT); Respiratory Syncytial Virus A Not Detected (NOT DETECT); Respiratory Syncytial Virus B Not Detected (NOT DETECT); SARS-COV-2 Not Detected (NOT DETECT)
[2024-06-04 21:15] LABS: Coronavirus 229E,HKU1,NL63,OC4 Detected (NOT DETECT)
[2024-06-04] MEDS: metoprolol tartrate 25 mg Tablet 12.5 MG PO (21:42)
[2024-06-04] MEDS: citalopram 20 mg Tablet 10 MG PO (21:43)
[2024-06-04] MEDS: budesonide 0.5 mg/2 mL Neb INHALATION (22:28)
[2024-06-05] VITALS (7 sets, daily range): BP systolic 97–126; BP diastolic 64–75; PULSE 61–74; RESP 13–16; TEMP 36.1–36.8; O2SAT 95–98
--- NOTE | 2024-06-05 | ECG_ITS ---
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
[2024-06-05] MEDS: enoxaparin 100 mg/mL Syringe SUBCUT (02:10)
[2024-06-05 05:17] LABS: Basophils % 0.4 %; Eosinophils % 0.3 %; Hematocrit 39.4 % (36-47); Lymphocytes # 2.7 10^3/uL (0.8-4.8); Lymphocytes % 29.3 %; Mean Corpuscular HGB Conc 32.7 g/dL (30-55); Mean Corpuscular Hemoglobin 28.7 pg (27-33); Mean Corpuscular Volume 87.6 fl (85-98); Mean Platelet Volume 9.2 fL (7.4-10.4); Monocytes # 0.8 10^3/uL (0.2-0.9); Monocytes % 8.4 %; Neutrophils # 5.64 10^3/uL (1.8-7.7); Neutrophils % 61.3 %; Nucleated Red Blood Cells % 0 %; Platelet Count 410 10^3/cmm (157-399); Red Cell Distribution Width 13.1 % (12.1-15.1); White Blood Count 9.21 10^3/uL (3.29-11.43)
[2024-06-05] MEDS: cetirizine 10 mg Tablet 5 MG PO (05:22)
[2024-06-05] MEDS: atorvastatin 40 mg Tablet PO (05:22)
[2024-06-05 05:36] LABS: Alanine Aminotransferase 21 U/L (0-33); Albumin Level 3.8 g/dL (3.5-5.2); Alkaline Phosphatase 84 U/L (35-105); Anion Gap 15.3 (5-19); Aspartate Amino Transferase 21 U/L (0-32); Blood Urea Nitrogen 20 mg/dL (6-20); Calcium 8.9 mg/dL (8.5-10.5); Carbon Dioxide 25 mmol/L (22-29); Chloride 103 mmol/L (98-107); Creatinine Clr Calc Pharmacy 74.5476; Globulin 2.5 g/dL (1.3-4.6); Glomerular Filtration Rate 57.4 mL/min (90-130); Glucose 89 mg/dL (65-115); Osmolality Calculated 290 mOsm/kg (285-295); Potassium 4.3 mmol/L (3.5-5.1); Sodium 139 mmol/L (136-145); Total Bilirubin 0.2 mg/dL (0.15-1.2); Total Protein 6.3 g/dL (6.6-8.7)
[2024-06-05] MEDS: regadenoson 0.4 Mg/5 ml Syringe IVP (07:03)
--- NOTE | 2024-06-05 07:14 | PC.NURSE ---
Patient off unit to stress test at shift change.
--- NOTE | 2024-06-05 08:13 | PC.NURSE ---
Patient is back from stress test at 0810.
[2024-06-05] MEDS: fluticasone nasal spray 16gm Btl 2 SPRAY INTRANASAL (08:25)
[2024-06-05] MEDS: lisinopril 5 mg Tablet PO (08:26)
[2024-06-05] MEDS: metoprolol tartrate 25 mg Tablet 12.5 MG PO (08:26)
[2024-06-05] MEDS: aspirin 325 mg Tablet PO (08:26)
[2024-06-05] MEDS: budesonide 0.5 mg/2 mL Neb INHALATION (09:59)
--- NOTE | 2024-06-05 12:39 | PM.PN ---
Subjective Subjective: Rule out for acute coronary syndrome chest pain-free Vitals/I&O/Wt Last Vital Signs Temp 96.9 F L 06/05/24 11:02 Pulse 61 06/05/24 11:02 Resp 14 06/05/24 11:02 BP 111/66 06/05/24 11:02 Pulse Ox 97 06/05/24 11:02 O2 Del Method Room Air 06/05/24 11:02 06/04/24 06/05/24 06/05/24 22:59 06:59 14:59 Intake Total 520 / 520 0 / 520 350 / 350 Balance 520 / 520 0 / 520 350 / 350 Weight last 48 hrs Weight 233 lb 7 oz Weight 233 lb 7 oz Weight 230 lb Physical Exam HENMT: OTHER: GENERAL: Patient is alert, awake and oriented x3. HEART: Regular S1 and S2. No murmur, rub or gallop. LUNGS: Clear to auscultate bilaterally. CENTRAL NERVOUS SYSTEM: Grossly nonfocal. EXTREMITIES: Lower extremities with out edema bilaterally. Data 06/05/24 04:23 06/05/24 04:23 A&P Assessment and plan (1) Chest pain: Qualifiers: Chest pain type: unspecified Qualified Code(s): R07.9 - Chest pain, unspecified (2) Hypertension: Qualifiers: Hypertension type: unspecified Qualified Code(s): I10 - Essential (primary) hypertension (3) Back pain: Qualifiers: Back pain location: back pain in other location Chronicity: acute Qualified Code(s): M54.89 - Other dorsalgia (4) Type 2 diabetes mellitus: Qualifiers: Diabetes mellitus termite control servicer insulin use: unspecified termite control servicer insulin use status Diabetes mellitus complication status: without complication Qualified Code(s): E11.9 - Type 2 diabetes mellitus without complications Plan Rule out for acute coronary syndrome, stress test shows small area of perfusion defect in the distal circumflex territory cannot rule out old myocardial infarction even if there is [place] it is very small area further involvement of the myocardium, based upon the test patient does not need any further invasive procedure. Recommend continuing aspirin statin beta-pipo, isosorbide mononitrate 30 mg once a day, follow-up with cardiology in 2 weeks PDMP PDMP Reviewed: Not Reviewed Attestations Medical Necessity Statement*: From cardiovascular perspective patient can be discharged Coding Level of Care Code Acute Code for Chg Fwd Diagnoses Chest pain, unspecified type R07.9 Chest pain type: unspecified Hypertension I10 Hypertension type: unspecified Other acute back pain M54.89 Back pain location: back pain in other location Chronicity: acute Type 2 diabetes mellitus without complication, unspecified whether senior living insulin use E11.9 Diabetes mellitus senior living insulin use: unspecified senior living insulin use status Diabetes mellitus complication status: without complication
--- NOTE | 2024-06-05 12:56 | PM.DCS ---
Discharge Providers Date of Admission: 06/04/24 13:22 Date of Discharge: June 05, 2024 Attending Provider at Admission: Paul Sarabia Attending Provider at Discharge: Paul Sarabia Primary Care Provider: Sharad Cherry DO Diagnoses at Discharge Discharge Diagnosis (1) Chest pain: Status: Acute Qualifiers: Chest pain type: unspecified Qualified Code(s): R07.9 - Chest pain, unspecified (2) Hypertension: Status: Acute Qualifiers: Hypertension type: unspecified Qualified Code(s): I10 - Essential (primary) hypertension (3) Back pain: Status: Acute Qualifiers: Back pain location: back pain in other location Chronicity: acute Qualified Code(s): M54.89 - Other dorsalgia (4) Type 2 diabetes mellitus: Status: Acute Qualifiers: Diabetes mellitus complication status: without complication Diabetes mellitus senior care insulin use: unspecified senior care insulin use status Qualified Code(s): E11.9 - Type 2 diabetes mellitus without complications Reason for Visit Reason for Visit: Chest pain Brief History: Pleasant 54-year-old lady with history of postmenopausal hormone replacement therapy, hypertension, diabetes, obesity, history of NC, CHF, and her father starting her 60s, she used to smoke but quit over 20 years ago, started having chest pain, sharp, left-sided chest, or radiating around her chest toward the back as well as into the left shoulder and arm. Not getting worse with deep breaths. She did have some flulike illness last week but with improvement. Minimal if any residual cough. Denies any recurrent episodes of chest pressure, prior history of coronary disease diagnosed or treated in herself. She received nitroglycerin, hydromorphone in ER. With resulting partial relief of pain, currently down to about 6/10. There is some palpable discomfort in the left side posterior chest. She does have some mild troponin elevation 29-25. Hospital Course Hospital Course She was admitted to cardiac stepdown unit with telemetry, monitoring for any arrhythmia, was additionally assessed by cardiology, echocardiogram has been obtained as well interpretation is pending. Consideration was given to coronary angiography versus risk stratification with stress testing, and the latter was obtained. Chest pain has resolved. She tolerated the stress test well without any chest pain or pressure during the test. She is having some mild tenderness in the posterior left rib cage. Stress test returning with small area of prior infarct seen in LCx territory with normal LV systolic function. On cardiology reassessment she was found appropriate for return home upon further consideration of additional options, with recommended continuation of aspirin, statin, beta-pipo, Imdur and follow-up with cardiology in 2 weeks. On presentation she was additionally assessed with CT angiogram of the chest which did not find any aortic aneurysm or dissection, no ulcerative plaque. She was found to have mild bilateral groundglass attenuation with activation throughout both lungs. Most consistent with hypersensitivity pneumonia or air trapping. No mass or consolidation is noted. On viral panel testing she was found to be positive for [id number] coronavirus. As discussed with her lung changes may be secondary to the coronavirus infection, although she does have history of allergies, including allergies to her dogs due to which she takes antihistamine, intranasal corticosteroid, and intermittently gets steroid injections. Discussed with her bilateral nature of groundglass attenuation. Discussed with her further options for assessment, and for now she will follow-up with her primary provider for additional reassessment after resolution of coronavirus to confirm resolution of the groundglass opacities. But in case these are not resolved or recurrent in nature, hypersensitivity pneumonia may be considered, and further assessment may be of benefit, possibly with referral to pulmonology as well as. She is provided with prescription for 7 days of prednisone as per discussion w her and her . Physical Exam Narrative: She is awake alert, she is feeling well. She is accompanied by her . Const: COMMON NORMALS: patient oriented x3 and alert GENERAL APPEARANCE: cooperative ORIENTATION/CONSCIOUSNESS: Yes awake HENMT: COMMON NORMALS: oropharynx normal Neck/C-Spine: COMMON NORMALS: no JVD Resp: COMMON NORMALS: normal respiratory effort and clear to auscultation bilaterally AUSCULTATION: clear to auscultation bilaterally Cardio: COMMON NORMALS: no JVD, regular rhythm, S1 normal heart sound present, S2 normal heart sound present and No murmurs present (Cardio) RHYTHM: regular rhythm HEART SOUNDS: S1 normal heart sound present and S2 normal heart sound present GI: COMMON NORMALS: Normal to inspection, nondistended, normoactive bowel sounds present, Soft to palpation and non-tender PALPATION: Yes Soft to palpation Extremity: COMMON NORMALS: no joint enlargement and no pedal edema Neuro: COMMON NORMALS: patient oriented x3 and moves all extremities SENSORIUM/ORIENTATION: Yes alert Skin: COMMON NORMALS: no rashes or lesions noted GENERAL SKIN EXAM: no rashes or lesions noted Discharge Data Studies Completed and Pending Completed Studies During Hospitalization Category Date Time Status CT angio chest [id number] Stat Cat Scan 06/04/24 12:00 Completed Cardiac Stress Test MIBI [Sestamibi Stress Test Request Exams 06/05/24 06:45 Draft ] Routine XR chest 1V portable [id number] Stat Exams 06/04/24 08:14 Completed NM pete perf SPECT r/s* [id number] Routine Nuc Med 06/05/24 18:06 Completed Pending at discharge Category Date Time Status Complete Blood Count w/Auto AM LABS Lab 06/06/24 04:00 Ordered Complete Blood Count w/Auto AM LABS Lab 06/07/24 04:00 Ordered Comprehensive Metabolic Panel AM LABS Lab 06/06/24 04:00 Ordered Comprehensive Metabolic Panel AM LABS Lab 06/07/24 04:00 Ordered CV. echo complete* [id number] Routine Ultrasound 06/04/24 14:25 Taken Radiology Impressions Chest X-Ray 06/04/24 08:14 Impression: Negative chest. Chest CTA 06/04/24 12:00 IMPRESSION: 1. No thoracic aortic aneurysm or dissection. No ulcerated plaque. 2. Mild pulmonary artery dilatation. No pulmonary emboli. 3. Mild bilateral groundglass attenuation and mosaic attenuation throughout both lungs. Most consistent with hypersensitivity pneumonia or air trapping. No mass or consolidation. 4. Normal size heart. 5. Small hiatal hernia. 6. No mediastinal or hilar adenopathy. Laboratory Results WBC 9.21 10^3/uL (3.29-11.43) 06/05/24 04:23 RBC 4.50 10^6/uL (3.85-5.65) 06/05/24 04:23 Hgb 12.90 g/dL (11.27-16.99) 06/05/24 04:23 Hct 39.4 % (36-47) 06/05/24 04:23 MCV 87.6 fl (85-98) 06/05/24 04:23 MCH 28.7 pg (27-33) 06/05/24 04:23 MCHC 32.7 g/dL (30-55) 06/05/24 04:23 RDW 13.1 % (12.1-15.1) 06/05/24 04:23 Plt Count 410 10^3/cmm (157-399) H 06/05/24 04:23 MPV 9.2 fL (7.4-10.4) 06/05/24 04:23 Neut % (Auto) 61.3 % 06/05/24 04:23 Lymph % (Auto) 29.3 % 06/05/24 04:23 Kay % (Auto) 8.4 % 06/05/24 04:23 Eos % (Auto) 0.3 % 06/05/24 04:23 Baso % (Auto) 0.4 % 06/05/24 04:23 Neut # (Auto) 5.64 10^3/uL (1.8-7.7) 06/05/24 04:23 Lymph # (Auto) 2.7 10^3/uL (0.8-4.8) 06/05/24 04:23 Kay # (Auto) 0.8 10^3/uL (0.2-0.9) 06/05/24 04:23 Eos # (Auto) 0.0 10^3/uL (0.0-0.8) 06/05/24 04:23 Baso # (Auto) 0.0 10^3/uL (0.0-0.1) 06/05/24 04:23 Nucleated RBC % (auto) 0 % 06/05/24 04:23 Nucleated RBCs # 0.0 /100WBC 06/05/24 04:23 D-Dimer <= 0.27 ug/mLFEU (0-0.59) 06/04/24 08:09 Sodium 139 mmol/L (136-145) 06/05/24 04:23 Potassium 4.3 mmol/L (3.5-5.1) 06/05/24 04:23 Chloride 103 mmol/L (98-107) 06/05/24 04:23 Carbon Dioxide 25 mmol/L (22-29) 06/05/24 04:23 Anion Gap 15.3 (5-19) 06/05/24 04:23 BUN 20 mg/dL (6-20) 06/05/24 04:23 Creatinine 1.0 mg/dL (0.5-0.9) H 06/05/24 04:23 GFR Calculation 57.4 mL/min (90-130) L 06/05/24 04:23 Glucose 89 mg/dL (65-115) 06/05/24 04:23 Estimat Average Glucose 123 06/04/24 08:09 Hemoglobin A1c 5.9 % (4.0-6.0) 06/04/24 08:09 Calculated Osmolality 290 mOsm/kg (285-295) 06/05/24 04:23 Calcium 8.9 mg/dL (8.5-10.5) 06/05/24 04:23 Total Bilirubin 0.2 mg/dL (0.15-1.2) 06/05/24 04:23 AST 21 U/L (0-32) 06/05/24 04:23 ALT 21 U/L (0-33) 06/05/24 04:23 Alkaline Phosphatase 84 U/L (35-105) 06/05/24 04:23 Troponin T Baseline 29 ng/L (0-10) H 06/04/24 08:09 Troponin T 120 Minute 24.64 ng/L (0-10) H 06/04/24 09:45 Delta Troponin T -4.36 ABS# (0-10) L 06/04/24 09:45 Troponin T Hi Sens 6Hr 23.16 ng/L (0-10) H 06/04/24 14:11 Troponin T Hi Sens 6Hr Delta -5.84 ng/L (0-12) L 06/04/24 14:11 C-Reactive Protein 3.8 mg/L (0.0-4.9) 06/04/24 08:09 Total Protein 6.3 g/dL (6.6-8.7) L 06/05/24 04:23 Albumin 3.8 g/dL (3.5-5.2) 06/05/24 04:23 Globulin 2.5 g/dL (1.3-4.6) 06/05/24 04:23 Triglycerides 111 mg/dL (0-150) 06/04/24 08:09 Cholesterol 132 mg/dL (0-200) 06/04/24 08:09 LDL Cholesterol, Calc 59 mg/dL (50-129) 06/04/24 08:09 HDL Cholesterol 51 mg/dL (60-100) L 06/04/24 08:09 LDL/HDL Ratio 1.16 RATIO (0.00-3.22) 06/04/24 08:09 Cholesterol/HDL Ratio 2.59 mg/dL (0.0-4.40) 06/04/24 08:09 Urine Color Dark yellow (Yellow) A 06/04/24 08:35 Urine Appearance Clear (CLEAR) 06/04/24 08:35 Urine pH 6.0 (5-7) 06/04/24 08:35 Ur Specific [place] 1.029 (1.005-1.030) 06/04/24 08:35 Urine Protein Negative (Negative) 06/04/24 08:35 Urine Glucose (UA) Negative (Normal) 06/04/24 08:35 Urine Ketones Trace (Negative) 06/04/24 08:35 Urine Blood Negative (Negative) 06/04/24 08:35 Urine Nitrate Negative (Negative) 06/04/24 08:35 Urine Bilirubin Negative (Negative) 06/04/24 08:35 Urine Urobilinogen 1.0 mg/dL (Negative) 06/04/24 08:35 Ur Leukocyte Esterase Negative (Negative) 06/04/24 08:35 Urine RBC 0-2 /hpf (0-2) 06/04/24 08:35 Urine WBC 0-5 /hpf (0-5) 06/04/24 08:35 Ur Squamous Epith Cells 0-5 /hpf (0-5) 06/04/24 08:35 Amorphous Sediment Not Reportable 06/04/24 08:35 Urine Bacteria None seen /hpf (NONE) 06/04/24 08:35 Hyaline Casts 9.07 /lpf 06/04/24 08:35 Adenovirus (PCR) Not detected (NOT DETECT) 06/04/24 16:23 C. pneumoniae DNA (PCR) Not detected (NOT DETECT) 06/04/24 16:23 Coronavirus (PCR) Negative (Negative) 06/04/24 08:27 Coronavirus 229E (PCR) Detected (NOT DETECT) A 06/04/24 16:23 Human Metapneumovir PCR Not detected (NOT DETECT) 06/04/24 16:23 Influenza A (H1) PCR Not detected (NOT DETECT) 06/04/24 16:23 Influenza A (PCR) Negative (Negative) 06/04/24 08:27 Influ A (H1/09) PCR Not detected (NOT DETECT) 06/04/24 16:23 Influenza A (H3) PCR Not detected (NOT DETECT) 06/04/24 16:23 Influenza Type A (PCR) Not detected (NOT DETECT) 06/04/24 16:23 Influenza Type B (PCR) Not detected (NOT DETECT) 06/04/24 16:23 M. pneumoniae (PCR) Not detected (NOT DETECT) 06/04/24 16:23 Parainfluenza 1 (PCR) Not detected (NOT DETECT) 06/04/24 16:23 Parainfluenza 2 (PCR) Not detected (NOT DETECT) 06/04/24 16:23 Parainfluenza 3 (PCR) Not detected (NOT DETECT) 06/04/24 16:23 Parainfluenza 4 (PCR) Not detected (NOT DETECT) 06/04/24 16:23 RSV (PCR) Negative (Negative) 06/04/24 08:27 RSV Type A (PCR) Not detected (NOT DETECT) 06/04/24 16:23 RSV Type B (PCR) Not detected (NOT DETECT) 06/04/24 16:23 Entero/Rhino (PCR) Not detected (NOT DETECT) 06/04/24 16:23 SARS-CoV-2 (PCR) Not detected (NOT DETECT) 06/04/24 16:23 Vitals Last Vital Signs Temp 96.9 F L 06/05/24 11:02 Pulse 61 06/05/24 11:02 Resp 14 06/05/24 11:02 BP 111/66 06/05/24 11:02 Pulse Ox 97 06/05/24 11:02 O2 Del Method Room Air 06/05/24 11:02 Discharge Plan Discharge Patient Disposition: Home Condition: Stable Prescriptions: New aspirin 81 mg tablet,delayed release (DR/EC) 81 mg PO DAILY Qty: 90 0RF metoprolol succinate 25 mg tablet extended release 24 hr 12.5 mg PO DAILY Qty: 45 0RF isosorbide mononitrate 30 mg tablet extended release 24 hr 30 mg PO DAILY Qty: 90 0RF prednisone 20 mg tablet 20 mg PO DAILY 7 Days Qty: 7 0RF Continued tramadol 50 mg tablet 50 mg PO TID PRN (Reason: Pain) glipizide 10 mg tablet 10 mg PO DAILY azelastine 137 mcg (0.1 %) spray,non-aerosol 1 spray intranasal BID Rx Instructions: administer into each nostril progesterone micronized [Prometrium] 100 mg capsule 200 mg PO BEDTIME Qty: 90 3RF Rx Instructions: take 1 cap at hs for 2 weeks then increase to 2 caps at hs estradiol [Sobeida] 0.05 mg/24 hr patch semiweekly See Rx Instructions .ROUTE .COMPLEX Qty: 24 0RF Dose Instruction: apply one PATCH transdermally twice weekly Rx Instructions: apply one PATCH transdermally twice weekly atorvastatin 40 mg tablet 40 mg PO QAM fluticasone propionate 50 mcg/actuation [place],Suspension 2 spray INTRANASAL DAILY levocetirizine 5 mg tablet 5 mg PO QAM citalopram 10 mg tablet 10 mg PO BEDTIME Singulair 10 mg tablet 10 mg PO QAM PRN (Reason: allergies) lisinopril 5 mg tablet 5 mg PO DAILY ergocalciferol (vitamin D2) [Vitamin D2] 1,250 mcg (50,000 unit) capsule 1 unit PO BID vitamin B complex Capsule 1 cap PO DAILY Discontinued amoxicillin-pot clavulanate 875-125 mg tablet 1 tab PO BID No Action (DME) Space Chamber with Large Mask Spacer See Rx Instructions .Route Qty: 1 0RF Rx Instructions: As directed Discharge Orders: Discharge Order (Routine); Ordered 06/05/24 Ordered By: Paul Sarabia Referrals: Sue Lincoln NP [Nurse Practitioner] - 06/19/24 2:00 pm Sharad Cherry DO [Primary Care Provider] - 4-7 days (We have notified your physician's clinic of the need for a follow-up appointment to be scheduled. If you have not heard from them within the next 2 business days, please call them directly. ) Discharge Diet: Cardiac Discharge Activity: Increase activity as tolerated Patient Instructions: Metoprolol (By mouth), Aspirin (By mouth), Isosorbide Mononitrate (By mouth) (Imdur, Imdur ER, Ismo), Chest Pain (DC), Coronary Artery Disease in Women (GEN), Prevent Cardiovascular Disease (GEN), Opioid Safety Activity Restrictions/Additional Instructions: Follow up with your primary doctor and fundraising director regarding coronary artery disease. Follow up with your primary doctor for reasssessment after coronavirus infection and repeat imaging to further assess for possible hypersensitivity pneumonia. In case of persistent or recurrent changes, speak with your primary doctor regarding referral to pulmonology as well as further allergy testing, and allergen avoidance Stand Alone Forms: Work/School Release Discharge Attestations Time Spent in Discharge Care*: greater than 30 min Quality Metrics Clinical Quality Measures [ No reported AMI, CVA or VTE this stay] Coding Level of Care Code 38078 Total time (in minutes) for Discharge: 45 Diagnoses Chest pain, unspecified type R07.9 Chest pain type: unspecified Hypertension I10 Hypertension type: unspecified Other acute back pain M54.89 Back pain location: back pain in other location Chronicity: acute Type 2 diabetes mellitus without complication, unspecified whether senior care insulin use E11.9 Diabetes mellitus complication status: without complication Diabetes mellitus senior care insulin use: unspecified senior care insulin use status
--- NOTE | 2024-06-05 18:06 | NMCV_ITS ---
NM pete perf SPECT r/s* [id number] Lsia Nicole Age: 54 Gender: F : 1970 Exam Date: 06/05/2024 06:21 Ordering Phys: Sue Lincoln NP Technologist: JUAN Nunez Exam Location: [facility] Indications: cp STRESS TEST Please see separate stress test report in [facility] for full findings IMAGE PROTOCOL Rest/Stress 1 Lexiscan Day Radiopharmaceutical Dose (mCi) Administration Site Administered by Rest: Tc-99m 10.9 IV Colleen Connelly, TRUCK TRAILER MECHANIC Sestamibi Stress:Tc-99m 33 IV Colleen Bestgle, TRUCK TRAILER MECHANIC Sestamibi Rest: 05-Jun-2024 60 Discovery 630 Stress: 05-Jun-2024 30 Discovery 630 0.4mg Lexiscan. Images obtained in supine and prone position. SPECT RESULTS Technical Quality: Good Raw Data Analysis: Normal Image Corrections: No attenuation or motion correction applied Summed Stress Score: 3 Summed Rest Score: 8 Summed Difference Score: 0 PERFUSION FINDINGS Small area of fixed perfusion defect seen in the apical lateral and anterolateral maloney. This is consistent with small area of prior infarct seen in the left circumflex artery territory. FUNCTIONAL RESULTS (calculated via Gated SPECT) Stress Image LV EF (%): 89 Stress EDV (mL):57 TID: 0.63 Stress ESV (mL):6 FUNCTIONAL FINDINGS: There is normal left ventricular systolic function. IMPRESSIONS 1. Small area of prior infarct seen in the left circumflex artery territory. 2. LV systolic function is normal Chris Hua MD (Electronically Signed) Final Date: 05 June 2024 10:28 S
== END 2024-06-05 14:14 | disposition home or self-care (01) ==
LOC: ER 12:28 → CSU 15:47 → ER IP 06-05 07:26
PROVIDERS: Admitting Provider Internal Medicine; Emergency Provider Emergency Medicine; PCP Electrodiagnostic Medicine; Visit Provider Internal Medicine
DX: R07.89 Other chest pain (principal); I10 Essential (primary) hypertension; E11.65 Type 2 diabetes mellitus with hyperglycemia; E78.5 Hyperlipidemia, unspecified; E66.9 Obesity, unspecified; Z79.899 Other long term (current) drug therapy; Z88.8 Allergy status to other drugs, medicaments and biological substances; G43.909 Migraine, unspecified, not intractable, without status migrainosus; F32.A Depression, unspecified; R91.8 Other nonspecific abnormal finding of lung field; M54.89 Other dorsalgia; Z87.891 Personal history of nicotine dependence; Z82.3 Family history of stroke; Z82.49 Family history of ischemic heart disease and other diseases of the circulatory system; Z11.52 Encounter for screening for COVID-19; Z68.41 Body mass index [BMI] 40.0-44.9, adult; I49.8 Other specified cardiac arrhythmias; Z79.890 Hormone replacement therapy; B34.2 Coronavirus infection, unspecified
CPT/HCPCS: 36415; 71045; 71275; 78452; 80053; 80061; 81001; 83036; 84484; 85025; 85378; 86140; 87486; 87581; 87633; 87637; 93005; 93017; 93306; 94640; 96372; 96374; 96375; 96376; 99285; A9270; A9500; G0378; J1171; J1650; J2270; J2405; J2785; J3490; J7626

== ENCOUNTER 2024-07-08 12:41 | Outpatient (CLI) | payer OTHER, SELFPAY ==
[2024-07-08] MEDS: albuterol 2.5 mg/3 mL Neb INHALATION (13:12)
== END 2024-07-08 12:42 | disposition home or self-care (01) ==
LOC: RT 12:44
PROVIDERS: PCP Electrodiagnostic Medicine; Visit Provider Electrodiagnostic Medicine
DX: B34.2 Coronavirus infection, unspecified (principal); R93.89 Abnormal findings on diagnostic imaging of other specified body structures
CPT/HCPCS: 94060; 94726; 94729; J7613

== ENCOUNTER 2025-04-24 11:54 | Emergency (ER) | payer OTHER, SELFPAY ==
--- OUTSIDE RECORDS SUMMARY | 2025-03-10 05:30 | XMS_ITS ---
Author Organization [facility] Address [address] [place] [address] Care Team Providers Care Sales Agent Food Vending Service Name Role Phone Sharad Cherry DO Primary Care Provider Unavail Bruno Donis Unavailable [phone] Encounters Encounter Location Date Provider Diagnosis [facility] [address] [place] [address] [address] [place] [place] [address] 03/10/2025 Bruno Velasquez Plan Of Treatment No Information Progress Notes * Lisa VERGARADOB:1970 (55 yo F)Acc No.[id number]:03/10/2025 Progress Notes Patient: Lisa Bosch Provider: Wan Velasquez MD :1970 A ge:55 Y S ex:Female Date:03/10/2025 [address] [id number] Pcp:Sharad Cherry DO * Electronic signature of Sarah Velasquez MD on 04/24/2025 at 11:56 AM MANAGER WIND Sign off status: Pending * Provider: Wan Velasquez MD Date: 05/10/2024 Generated for Printi ng/Faxing/eTransmitting on: 06/25/2024 11:56 AM MANAGER WIND
--- OUTSIDE RECORDS SUMMARY | 2025-04-24 11:56 | XMS_ITS | Data Portability ---
Author Organization RIVERA Alec Aguirre [facility], [facility], [facility] Address [address] [facility] [address] [place] [address] Care Team Providers Care Internet Marketing Assistant Name Role Phone ELENA ESAON Primary Care Provider [phone] Assessment Encounter Date Assessment Date Assessment LastModified by Organization Details LastModified Time 11/18/2024 11/18/2024 Document scribed by Wagner Bunch Sap Data Analyst. I was present during interview and exam. I have reviewed and agree with above documentation . Dr. Elena Eason. [email or web address] Not available 11/18/2024 07:55:15 12/30/2024 12/30/2024 Document scribed by Wagner Bunch Sap Data Analyst. I was present during interview and exam. I have reviewed and agree with above documentation . Dr. Elena Eason. [email or web address] Not available 12/30/2024 11:59:13 Plan of Treatment Reminders Order Date Submit Date Provider Last Modified By Organization Details Last Modified Time Details Appointments None recorded. Lab CMP, serum or plasma 2024 025 [facility], [address] [facility] [address], [address], [place], [address], 10:04:12 hemoglobin A1C/hemogl obin total, QN, blood 2024 025 [email or web address] 7 [facility], [address] [facility] H[address], [address], [place], [address], 07:56:14 CMP, serum or plasma 2024 [email or web address] 7 [facility], [address], [address], 07:56:14 Referral dermatolog ist referral 2024 [facility], [address] [place], [address], 14:24:57 Procedures None recorded. Surgeries None recorded. Imaging None recorded. Medication Orders amoxicilli n 875 mg-potassi um clavulanat e 125 mg tablet 2024 [facility], [address] [place] [address], [address], 05:00:54 lisinopril 2.5 mg tablet 2024 [facility], [address] [place] [address], [address], 13:29:31 Ozempic 1 mg/dose (4 mg/3 mL) subcutaneo us pen injector 2024 [facility], [address] [place] [address], [address], 13:41:12 Ozempic 1 mg/dose (4 mg/3 mL) subcutaneo us pen injector 2024 025 [facility], [address] [place] [address], [address], 17:31:10 Patient TargetsNo targets recorded. Patient InstructionsNo instructions recorded. 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 5 normal Not Available [facility] [address] [facility], [place], [address], 12/30/2024 12:39:24 12/31/1912/30/2024 CMP (FEMA LE) glucose 134.0 mg/dL 60.0-9 9.0 high Not Available [facility] [address] [facility], [place], [address], 12/30/2024 14:45:42 12/31/19 25 12/30/2024 CMP (FEMA LE) BUN (blood urea nitrogen) 35.0 mg/dL 10.0-2 6.0 high Not Available [facility] [address] [facility] [address], [place], [address], 12/30/2024 14:45:42 12/31/19 25 12/30/2024 CMP (FEMA LE) creatinine (serum) 1.8 mg/dL 0.4-1. 5 high Not Available [facility] [address] [facility] [address] [address], [place], [address], 12/30/2024 14:45:42 12/31/19 25 12/30/2024 CMP (FEMA LE) BUN/creatini ne ratio 19.44 ratio Not Available [facility] [address] [facility] [address], [place], [address], 12/30/2024 14:45:42 12/31/19 25 12/30/2024 CMP (FEMA LE) eGFR calculated 30.9 Not Available [facility] [address] [facility], [place], [address], 12/30/2024 14:45:42 12/31/19 25 12/30/2024 CMP (FEMA LE) total protein 6.7 g/dL 6.0-8. 5 Not Available [facility] [address] [facility] Maryann [facility], [place], [address], 12/30/2024 14:45:42 12/31/19 25 12/30/2024 CMP (FEMA LE) total bilirubin 0.7 mg/dL 0.2-1. 3 Not Available [facility] [address] [facility], [place], [address], 12/30/2024 14:45:42 12/31/19 25 12/30/2024 CMP (FEMA LE) albumin 4.2 g/dL 3.5-5. 5 Not Available [facility] [address] [facility] [address], [place], [address], 12/30/2024 14:45:42 12/31/19 25 12/30/2024 CMP (FEMA LE) globulin 2.5 calc Not Available [facility] [address] [facility] [address], [place], [address], 12/30/2024 14:45:42 12/31/19 25 12/30/2024 CMP (FEMA LE) AST (SGOT) 25.0 U/L 0.0-46 .0 Not Available [facility] [address] [facility] [address], [place], [address], 12/30/2024 14:45:42 12/31/19 25 12/30/2024 CMP (FEMA LE) altv (SGPT) 19.0 U/L 13.0-6 9.0 normal Not Available [facility] [address] [facility] [address], [place], [address], 12/30/2024 14:45:42 12/31/19 25 12/30/2024 CMP (FEMA LE) A/G ratio 1.7 ratio Not Available [facility] [address] [facility] [address], [place], [address], 12/30/2024 14:45:42 12/31/19 25 12/30/2024 CMP (FEMA LE) ALP phos 88.0 U/L 30.0-1 40.0 normal Not Available [facility] [address] [facility] [address], [place], [address], 12/30/2024 14:45:42 12/31/19 25 12/30/2024 CMP (FEMA LE) calcium 9.9 mg/dL 8.4-10 .5 Not Available [facility] [address] [facility] [address], [place], [address], 12/30/2024 14:45:42 12/31/19 25 12/30/2024 CMP (FEMA LE) sodium 135.0 mmol/ L 136.0- 145.0 low Not Available [facility] [address] [facility] [address], [place], [address], 12/30/2024 14:45:42 12/31/19 25 12/30/2024 CMP (FEMA LE) potassium 4.5 mmol/ L 3.5-5. 1 Not Available [facility] [address] [facility] [address], [place], [address], 12/30/2024 14:45:42 12/31/19 25 12/30/2024 CMP (FEMA LE) chloride 101.0 mmol/ L 98.0-1 10.0 normal Not Available [facility] [address] [facility] [address], [place], [address], 12/30/2024 14:45:42 12/31/19 25 12/30/2024 CMP (FEMA LE) C02 28.0 mmol/ L 22.0-3 1.0 Not Available [facility] [address] [facility] [address], [place], [address], 12/30/2024 14:45:42 12/31/19 25 12/30/2024 CMP (FEMA LE) anion gap 6.0 calc Not Available [facility] [address] [facility], [place], [address], 12/30/2024 14:45:42 12/31/19 25 12/30/2024 CMP (FEMA LE) osmolality 288.4 calc Not Available [facility] [address] [facility], [place], [address], 12/30/2024 14:45:42 02/27/20 25 02/26/2025 CMP (FEMA LE) glucose 97.0 mg/dL 60.0-9 9.0 Not Available [facility] [address] [facility], [place], [address], 02/26/2025 10:04:12 02/27/20 25 02/26/2025 CMP (FEMA LE) BUN (blood urea nitrogen) 25.0 mg/dL 10.0-2 6.0 Not Available [facility] [address] [facility], [place], [address], 02/26/2025 10:04:12 02/27/20 25 02/26/2025 CMP (FEMA LE) creatinine (serum) 2.1 mg/dL 0.4-1. 5 high Not Available [facility] [address] [facility], [place], [address], 02/26/2025 10:04:12 02/27/20 25 02/26/2025 CMP (FEMA LE) BUN/creatini ne ratio 11.90 ratio Not Available [facility] [address] [facility], [place], [address], 02/26/2025 10:04:12 02/27/20 25 02/26/2025 CMP (FEMA LE) eGFR calculated 25.8 Not Available [facility] [address] [facility] [address], [place], [address], 02/26/2025 10:04:12 02/27/20 25 02/26/2025 CMP (FEMA LE) total protein 6.8 g/dL 6.0-8. 5 Not Available [facility] [address] [facility] [address], [place], [address], 02/26/2025 10:04:12 02/27/20 25 02/26/2025 CMP (FEMA LE) total bilirubin 0.8 mg/dL 0.2-1. 3 Not Available [facility] [address] [facility] [address], [place], [address], 02/26/2025 10:04:12 02/27/20 25 02/26/2025 CMP (FEMA LE) albumin 4.1 g/dL 3.5-5. 5 Not Available [facility] [address] [facility] [address], [place], [address], 02/26/2025 10:04:12 02/27/20 25 02/26/2025 CMP (FEMA LE) globulin 2.7 calc Not Available [facility] [address] [facility] [address], [place], [address], 02/26/2025 10:04:12 02/27/20 25 02/26/2025 CMP (FEMA LE) AST (SGOT) 40.0 U/L 0.0-46 .0 Not Available [facility] [address] [facility] [address], [place], [address], 02/26/2025 10:04:12 02/27/20 25 02/26/2025 CMP (FEMA LE) altv (SGPT) 22.0 U/L 13.0-6 9.0 normal Not Available [facility] [address] [facility], [place], [address], 02/26/2025 10:04:12 02/27/20 25 02/26/2025 CMP (FEMA LE) A/G ratio 1.5 ratio Not Available [facility] [address] [facility] [address], [place], [address], 02/26/2025 10:04:12 02/27/20 25 02/26/2025 CMP (FEMA LE) ALP phos 81.0 U/L 30.0-1 40.0 normal Not Available [facility] [address] [facility], [place], [address], 02/26/2025 10:04:12 02/27/20 25 02/26/2025 CMP (FEMA LE) calcium 10.3 mg/dL 8.4-10 .5 Not Available [facility] [address] [facility], [place], [address], 02/26/2025 10:04:12 02/27/20 25 02/26/2025 CMP (FEMA LE) sodium 135.0 mmol/ L 136.0- 145.0 low Not Available [facility] [address] [facility] [address], [place], [address], 02/26/2025 10:04:12 02/27/20 25 02/26/2025 CMP (FEMA LE) potassium 4.4 mmol/ L 3.5-5. 1 Not Available [facility] [address] [place] [facility], [place], [address], 02/26/2025 10:04:12 02/27/20 25 02/26/2025 CMP (FEMA LE) chloride 101.0 mmol/ L 98.0-1 10.0 normal Not Available [facility] [address] [facility] [address], [place], [address], 02/26/2025 10:04:12 02/27/20 25 02/26/2025 CMP (FEMA LE) C02 26.0 mmol/ L 22.0-3 1.0 Not Available [facility] [address] [facility], [place], [address], 02/26/2025 10:04:12 02/27/20 25 02/26/2025 CMP (FEMA LE) anion gap 8.[address] [facility] [address] [facility] [address], [place], [address], 02/26/2025 10:04:12 02/27/2002/26/2025 CMP (FEMA LE) osmolality 283.2 calc Not Available [facility] [address] [facility] [address], [place], [address], 02/26/2025 10:04:12 Result Notes None recorded. Problems Name Problem SNOMED Code Status Onset Date Resolution Date Notes Provider Name and Address Organization Details Recorded Time Kidney stone 10632873 Active 2022 Kidney stone removal 05/06 Valentina weems [facility] 5 12:11:37 Arthritis 2483335 Active 2022 Valentina weems [facility] 5 12:11:37 Benign essential hypertens ion 9606277 Active 2022 Hypertens ion; gestation al-11/30 Valentina weems [facility] 5 12:11:37 Gestation al diabetes mellitus 18048029 Active 2022 Valentina weems [facility] 5 12:11:37 section Active 2022 Section; ;11/30 Valentinamessi Mack dank, [facility] 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 Valentinamessi Martineztien weems, [facility] 5 12:11:37 Chronic low back pain 603244120 Active 2022 Valentinazac Martineztien weems, [facility] 5 12:11:37 Impaired glucose tolerance 9740744 Active 2022 Valentina weems, [facility] 5 12:11:37 Left lateral elbow tendinopa thy 506505045668 100 [facility] 12:11:37 Essential hypertens ion 03977585 Active 2023 Valentina Mack [facility], [facility] 5 12:11:37 Hyperlipi demia 70814762 Active 2023 Valentina Mack [facility] 5 12:11:37 Type 2 diabetes mellitus 12078556 Active 2023 Valentina Mack [facility], [facility] 5 12:11:37 Morbid obesity 993853772 Active 2023 Valentina Mack [facility], [facility] 5 12:11:37 Vitamin D deficienc y 76848366 Active 2023 [facility] 12:11:37 Malignant melanoma 374339706 Active 2023 Valentina weems [facility] 5 12:11:37 Cobalamin deficienc y 424042075 Active 2023 Elena Eason [address] [place] [address], [phone], [facility] 4 18:25:44 Pain of knee region 9723252043 Active 2024 Valentina weems [facility] 5 12:11:36 Left rotator cuff syndrome 729116652340 106 Active 2024 Valentina weems [facility] 5 12:11:37 Obstructi ve sleep apnea syndrome 39349735 Active 2024 Valentina weems [facility] 5 12:11:37 Inflammat ory dermatosi s 317266170 Active 2024 Elenanaz Eason [address] [place] [address], [phone], [facility] 13:43:11 Problem Notes None recorded. Procedures Surgical History Date Name Laterality Status Provider Name and Address Organization Details Recorded Time 4 Excision and closure completed Elena Eason DO [address] [place] [address], [phone], [facility] 01/16/2024 12:12:33 operation on nasal septum completed Patti Rodríguez [facility] 10/22/2023 12:29:18 procedure on elbow completed Patti Rodríguez [facility] 10/22/2023 12:29:32 repair of joint of left knee completed Elena Eason DO [address] [place] [address], [phone], [facility], [place] 06/11/2024 14:09:54 procedure on ankle completed [facility], [place] 10/22/2023 12:29:48 destruction of lesion completed [facility], [place] 10/22/2023 12:29:57 Imaging Results None recorded. Procedure Notes None recorded. Medical Equipment None Reported. Allergies Allergen ID Allergen Name Allergen Category Reaction Reaction Severity Criticality Documentation Date Start Date Code Code System Note Provider Name and Address Organization Details Recorded Time 22517 metformin medicatio n diarrhea moderate low 07/03/20232023 6809 RxNorm Elena EasonDO [address] [place] [address], [phone], [facility] [place] 09:01:17 Medications Name Sig Start Date Stop Date Status Note LastModified by Organization Details LastModified Time cyclobenz aprine 10 mg tablet TAKE ONE TABLET BY MOUTH TWICE DAILY NEEDED active Not Available Not Available No t Available amoxicill in 500 mg capsule take 1 capsule BY MOUTH EVERY 8 HOURS FOR 7 DAYS 04/16 completed Not Available Not Available Not Available atorvasta tin 40 mg tablet TAKE 1 TABLET BY MOUTH EVERY EVENING active Not Available Not Available No t Available metformin 500 mg tablet TAKE 1 TABLET BY MOUTH TWICE DAILY 06/18 completed intolera nce is abd pain/sara rrhea Not Available Not Available Not Available prednison e 10 mg tablet take 6 tablets BY MOUTH EVERY DAY FOR THREE DAYS, THEN FOUR DAILY FOR THREE DAYS, THEN TWO DAILY FOR THREE DAYS, THEN ONE DAILY FOR THREE DAYS 02/08 completed Not Available Not Available Not Available doxycycli ne hyclate 100 mg capsule TAKE ONE CAPSULE TWICE DAILY FOR 7 DAYS 08/30 completed Not Available Not Available Not Available albuterol sulfate 2.5 mg/3 mL (0.083 %) solution for nebulizat ion use 1 vial in nebulize r UP TO EVERY 4 HOURS NEEDED FOR SHORTNES S OF BREATH 04/16 completed Not Available Not Available Not Available azithromy lilian 250 mg tablet TAKE 2 TABLETS BY MOUTH TODAY, THEN TAKE 1 TABLET DAILY ON DAYS 2-5 11/05 completed Not Available Not Available Not Available fluconazo le 150 mg tablet TAKE 1 TABLET BY MOUTH EVERY DAY 01/14 completed Not Available Not Available Not Available citalopra m 10 mg tablet TAKE 1 TABLET BY MOUTH EVERY DAY active Not Available Not Available No t Available valacyclo vir 1 gram tablet TAKE 2 TABLETS BY MOUTH EVERY TWELVE HOURS FOR ONE DAY active Not Available Not Available No t Available medroxypr ogesteron e 2.5 mg tablet TAKE 1 TABLET BY MOUTH every MORNING in conjunct ion WITH estradio l 01/14 completed Not Available Not Available Not Available hydrocodo ne 5 mg-acetam inophen 325 mg tablet TAKE ONE TABLET BY MOUTH EVERY 6 HOURS NEEDED FOR PAIN 12/18 completed Not Available Not Available Not Available glipizide ER 10 mg tablet, extended release 24 hr TAKE 1 TABLET BY MOUTH EVERY DAY *STOP METFORMI N* 2024 active Not Available Not Available Not Avai lable prednison e 20 mg tablet TAKE 1 TABLET BY MOUTH EVERY DAY for 7 days 06/11 completed Not Available Not Available Not Available isosorbid e mononitra te ER 30 mg tablet,ex tended release 24 hr TAKE 1 TABLET BY MOUTH EVERY DAY 03/03 completed Not Available Not Available Not Available aspirin 81 mg tablet,de layed release TAKE 1 TABLET BY MOUTH EVERY DAY active Not Available Not Available No t Available tramadol 50 mg tablet TAKE 1 TABLET BY MOUTH DAILY NEEDED active Not Available Not Available No t Available ondansetr on 8 mg disintegr ating tablet DISSOLVE ONE TABLET BY MOUTH EVERY 6 HOURS NEEDED FOR nausea and vomiting 04/16 completed Not Available Not Available Not Available betametha sone acetate and sodium phos 6 mg/mL suspensio n for injection Take 1 mL by injectio n route. 06/11 completed Not Available Not Available Not Available amoxicill in 875 mg tablet TAKE 1 TABLET BY MOUTH EVERY TWELVE HOURS for 7 days 01/14 completed Not Available Not Available Not Available estradiol 1 mg tablet daily 06/05 completed 0; Recorded 07/15/19 23 6:10PM by Varghese Torres, Office Visit; Not Available Not Available Not Available famciclov ir 500 mg tablet TAKE 1 TABLET THREE TIMES DAILY FOR 7 DAYS 12/30 completed Not Available Not Available Not Available tamsulosi n 0.4 mg capsule TAKE ONE CAPSULE BY MOUTH DAILY 04/16 completed Not Available Not Available Not Available OneTouch Ultra Test strips check gluose EVERY DAY active Not Available Not Available No t Available cephalexi n 500 mg capsule TAKE ONE CAPSULE BY MOUTH TWICE DAILY FOR 5 DAYS 12/18 completed Not Available Not Available Not Available lisinopri l 10 mg tablet TAKE 1 TABLET BY MOUTH DAILY FOR 90 DAYS 01/30 completed CHANGED DOSE Not Available Not Available Not Available prednison e 50 mg tablet TAKE 1 TABLET BY MOUTH EVERY DAY 10/02 completed Not Available Not Available Not Available metronida zole 0.75 % topical cream apply thin layer TWICE DAILY TO rash along face active Not Available Not Available No t Available progester one micronize d 200 mg capsule take 1 capsule BY MOUTH AT BEDTIME active Not Available Not Available No t Available monteluka st 10 mg tablet TAKE 1 TABLET BY MOUTH EVERY DAY active Not Available Not Available No t Available lisinopri l 5 mg tablet TAKE 1 TABLET BY MOUTH EVERY DAY FOR BLOOD PRESSURE 03/03 completed Not Available Not Available Not Available diclofena c sodium 50 mg tablet,de layed release TAKE ONE TABLET BY MOUTH EVERY TWELVE HOURS 12/18 completed Not Available Not Available Not Available estradiol 0.5 mg tablet TAKE ONE TABLET BY MOUTH every DAY in conjucti on with provera 01/14 completed Not Available Not Available Not Available metoprolo l succinate ER 25 mg tablet,ex tended release 24 hr TAKE 1 TABLET BY MOUTH EVERY DAY 03/03 completed Not Available Not Available Not Available azelastin e 137 mcg (0.1 %) nasal spray USE ONE TO TWO SPRAYS IN EACH NOSTRIL TWICE DAILY, USE with flonase DIRECTED active Not Available Not Available No t Available epinephri ne 0.3 mg/0.3 mL injection , auto-inje ctor inject ONE pen INTRAMUS CULARLY FOR ONE DOSE NEEDED FOR anaphyla xis. call 911 or proceed TO nearest er AFTER administ ration active Not Available Not Available No t Available levofloxa lilian 750 mg tablet TAKE ONE TABLET BY MOUTH EVERY DAY 06/05 completed Not Available Not Available Not Available methylpre dnisolone 4 mg tablets in a dose pack USE DIRECTED PER package 02/08 completed Not Available Not Available Not Available albuterol sulfate HFA 90 mcg/actua tion aerosol inhaler inhale TWO puffs EVERY 4 HOURS NEEDED 04/16 completed Not Available Not Available Not Available Vitamin D2 1,250 mcg (50,000 unit) capsule take 1 capsule BY MOUTH twice a week active Not Available Not Available No t Available ondansetr on 4 mg disintegr ating tablet place ONE tablet ON TONGUE TWICE DAILY NEEDED FOR nausea active Not Available Not Available No t Available lisinopri l 2.5 mg tablet TAKE 1 TABLET BY MOUTH EVERY DAY in THE evening FOR BLOOD PRESSURE active Not Available Not Available No t Available doxycycli ne hyclate 100 mg tablet TAKE 1 TABLET BY MOUTH TWICE DAILY 02/08 completed Not Available Not Available Not Available progester one micronize d 100 mg capsule take 1 capsule BY MOUTH AT BEDTIME FOR TWO weeks THEN increase TO TWO capsules AT BEDTIME active Not Available Not Available No t Available amoxicill in 875 mg-potass ium clavulana te 125 mg tablet Take 1 tablet twice a day by oral route for 7 days. 04/04 completed Not Available Not Available Not Available olopatadi ne two times daily 02/08 completed 0; Recorded 07/15/19 23 6:10PM by Varghese Torres, Office Visit; Not Available Not Available Not Available Diflucan one time dose 02/08 completed Recorded 04/04/20 22 12:23PM by Maxwell Martinez, Office Visit; Refill Quantity : 1; Tablet; Not Available Not Available Not Available medroxypr ogesteron e daily 02/08 completed 0; Recorded 07/15/19 23 6:10PM by Varghese Torres, Office Visit; Not Available Not Available Not Available levofloxa lilian once a day for 10 days 06/05 completed Recorded 07/15/19 23 6:10PM by Varghese Torres, Office Visit; Refill Quantity : 0; Not Available Not Available Not Available levocetir izine 5 mg tablet TAKE 1 TABLET BY MOUTH EVERY DAY active Not Available Not Available No t Available levocetir izine daily 02/08 completed DM/sd; 37835; Recorded 04/11/20 22 2:30PM by Haylie Arevalo (Nidia olvera through Elena Eason DO), Refill Request; Refill Quantity : 90; Tablet; Not Available Not Available Not Available olopatadi ne 0.6 % nasal spray administ er TWO SPRAYS into each nostril TWICE DAILY 04/16 completed Not Available Not Available Not Available Allergy IM weekly 07/02 completed Injectio ns weekly Not Available Not Available Not Available OneTouch Ultra2 Meter USE TO check glucose ONCE daily active Not Available Not Available No t Available OneTouch Delica Plus Lancet 33 gauge check gluose EVERY DAY active Not Available Not Available No t Available Sobeida 0.025 mg/24 hr transderm al patch APPLY ONE PATCH transder wanda twice weekly 04/16 completed Not Available Not Available Not Available Sobeida 0.05 mg/24 hr transderm al patch apply ONE PATCH transder wanda TWICE A WEEK active Not Available Not Available No t Available Voltaren Arthritis Pain 1 % topical gel apply TWO grams TO affected area UP TO THREE TIMES DAILY NEEDED FOR PAIN 01/30 completed Not Available Not Available Not Available Ozempic 1 mg/dose (4 mg/3 mL) subcutane ous pen injector inject 1mg SUBCUTAN EOUSLY every week active Not Available Not Available No t Available Mounjaro 2.5 mg/0.5 mL subcutane ous pen injector Inject 2.5 mg every week by subcutan eous route, for Diabetes . 01/28 completed Not Available Not Available Not Available Astepro Allergy 205.5 mcg (0.15 %) nasal spray [facility] 1 spray twice a day by intranas al route. 04/16 completed Not Available Not Available Not Available Ozempic 0.25 mg or 0.5 mg (2 mg/3 mL) subcutane ous pen injector inject 0.5mg SUBCUTAN EOUSLY every week 12/30 completed Not Available Not Available Not Available Zepbound 2.5 mg/0.5 mL subcutane ous pen injector Inject 2.5 mg by subcutan eous route for 28 days. 09/11 completed Not Available Not Available Not Available YingYangStH-art (WPP) Ld 3 Plus Sensor device CHANGE and replace EVERY 15 DAYS active Not Available Not Available No t Available Vitals Date Recorded Body height Body mass index (BMI) Body weight Oxygen saturation Heart rate Respiratory rate Systolic And Diastolic Provider Name and Address Organization Details Last Updated DateTime 5 162.56 cm 37.1 kg/m2 57047.9 5 g 99 % 77 /min 18 /min 110/60 mm[Hg] Valentina Mack [facility] 5 10:57:45 Date Recorded Body height Body mass index (BMI) Body weight Oxygen saturation Heart rate Respiratory rate Systolic And Diastolic Provider Name and Address Organization Details Last Updated DateTime 5 162.56 cm 35.6 kg/m2 33047.7 2 g 99 % 90 /min 18 /min 120/70 mm[Hg] Valentina Mack [facility] 5 11:40:21 Date Recorded Body height Body mass index (BMI) Body weight Oxygen saturation Heart rate Respiratory rate Systolic And Diastolic Provider Name and Address Organization Details Last Updated DateTime 5 162.56 cm 33.5 kg/m2 71860.5 1 g 99 % 92 /min 18 /min 126/74 mm[Hg] JANICE SAMSON [facility] 5 13:12:24 Date Recorded Body height Body mass index (BMI) Body weight Body temperature Heart rate Oxygen saturation Systolic And Diastolic Provider Name and Address Organization Details Last Updated DateTime 5 162.56 cm 32.3 kg/m2 68625.7 7 g 97.8 [degF] 107 /min 99 % 126/70 mm[Hg] Emily Gary [facility] 5 10:29:26 Social History Question Answer Notes LastModified by Organizat ion Details LastModified Time Tobacco Smoking Status Former Smoker Kaye weems [facility] 06/03/2024 09:18:19 What Was The Date Of Your Most Recent Tobacco Screening? 03/21/2025 [email or web address] Information not available 03/21/2025 Sex: Unknown Functional Status Question Answer Note LastModified by Organizat ion Details LastModified Time Do you use any illicit or recreational drugs? No Information not available 10/22/2023 What is your level of alcohol consumption? Occasional Information not available 10/22/2023 Mental Status None recorded. Family History Nothing Reported Notes:Mother with DM, Alzhei mariangel's, recurrent TIA's. Medical History Condition Response Coronary Artery Disease N Other N Gout N Kidney Stones N Blood Diseases N Hyperthyroidism N Breast Cancer N Blood Transfusion N Depression N COPD N Lung Disease N Hypothyroidism N Developmental or Behavioral Disorders N Defects or Inherited Disease N Breast Problem N Difficulty Swallowing N Anesthesia Complications N Meniere's disease N Anxiety Disorder N Muscle, Joint, or Bone Problems N Vision or Eye Problems N Arthritis N Polyps N Infertility N Cancer N Varicosities N Stroke N Endometriosis N Bladder or Kidney Problems N High Cholesterol N Liver Disease N Headaches N Fibromyalgia N Kidney Disease N Allergies/Hayfever N Heart Problems N Ear or Hearing Problems N Hospitalizations N Thyroid Problems N GI Problems N ADD/ADHD N Skin Problems N Eating Disorder N Anemia N Constipation N Mental Illness N Ovarian Cancer N Diabetes N Bedwetting N Seizures/Epilepsy N Tuberculosis N Eczema N Diverticulitis N Abuse/Domestic Violence N Asthma N Reflux/GERD N Hepatitis N Heart Disease N Pulmonary Embolism N Pre-Eclampsia N Hypertension N Chronic Ear Infections N Osteoporosis N Chicken Pox N Autism Spectrum Disorder (ASD) N Thrombophilias N Gynecological HistoryNo gynecological history recorded. Obstetrics History GPAL:G 0 P 0 0 0 0 Immunizations Vaccine Type Date Status Note Provider Nam e and Address Organization Details Recorded Time zoster recombinant 1 completed Patti weems [facility] 10/22/2023 12:23:53 COVID-19, mRNA, LNP-S, PF, 30 mcg/0.3 mL dose 1 completed Patti weems [facility] 10/22/2023 12:23:53 COVID-19, mRNA, LNP-S, PF, 30 mcg/0.3 mL dose 1 completed Patti weems, [facility] 10/22/2023 12:23:53 COVID-19, mRNA, LNP-S, PF, 30 mcg/0.3 mL dose 1 completed Patti weems, [facility] 10/22/2023 12:23:53 Influenza, split virus, quadrivalent, PF 1 completed Patti weems, [facility] 10/22/2023 12:23:53 COVID-19, mRNA, LNP-S, PF, 50 mcg/0.5 mL 3 completed Valentina weems, [facility] 11/06/2023 08:58:17 Influenza, split virus, trivalent, preservative 4 completed Not Available [facility] 03/03/2025 12:16:48 Influenza, split virus, quadrivalent, PF 7 completed Not Available [facility] 03/03/2025 12:16:48 Influenza, split virus, quadrivalent, PF 8 completed Not Available [facility] 03/03/2025 12:16:48 COVID-19, mRNA, LNP-S, PF, vashti-sucrose, 30 mcg/0.3 mL 5 completed Not Available [facility] 03/03/2025 12:16:48 Influenza, split virus, trivalent, PF 5 completed Not Available [facility] 03/03/2025 12:16:48 zoster recombinant 3 completed Elena Eason, [address], [id number], [facility] 03/14/2023 17:19:26 zoster recombinant 3 completed Not Available [facility] 04/13/2023 08:37:19 Influenza, split virus, trivalent, PF 4 completed Elena Eason DO [address] [place] [address], [id number], [facility] - [place] [facility] 01/17/2024 18:19:12 Novel [id number] , all formulations 3 completed Not Available [facility] 11/25/2022 02:28:48 Influenza, split virus, trivalent, preservative 3 completed Not Available [facility] 11/25/2022 02:28:50 Past Encounters Encounter ID Performer Location Encounter Start Date Encounter Closed Date Diagnosis/Indication Diagnosis SNOMED-CT Code Diagnosis ICD10 Code Diagnosis IMO Codes Diagnosis Note [id number] Elena Eason DO [facility] ([facility]) [address] [place] [phone] 02/08/2023 08:46:39 02/08/2023 10:23:40 Left lateral elbow tendinopathy 5463116375 79442 M77.12 flair up. start topical anti-infla mmatories. Consider injection. Benign ess ential hypertension 7036702 I10 continue lisinopril , labs today Impaired g lucose tolerance 3625822 R73.09 We will check A1c. Chronic low back pain 27 4534932 M54.50 Tramadol. Counseled on exercise and weight loss. Active or passive immunization 126472114 Z23 I counseled pt on vaccinatio ns. they are willing to accept the Shingles vaccinatio n. given today, they will return in 8 wks for the 2nd/last booster. Adult [facility] th examination 566262676 Z00.00 I counseled patient on diet, exercise, weight, and mental health. We discussed appropriat e cancer screenings . All questions were addressed. We will obtain wellness labs with phone followup. [id number] Tez Santos MD [facility] ([facility]) [address] [place] [phone] 5 04/12/2023 08:08:59 04/12/2023 09:24:34 Active or passive immunization 353587515 Z23 [id number] Elena Eason DO [facility] ([facility]) [address] [place] [phone] 5 06/05/2023 08:18:28 06/06/2023 12:05:36 Hyperlipidemia 47507881 E78.5 stable. labs from jan 2023 with controlled lipids. continue atorvastat in and daily exercise. Essential hypertension 56630255 I10 improved. infact, may be getting too low with exercise and diet. monitor daily. consider decreasing her 10mg lisinopril to 5mg daily. Return to office with no improvemen t or any problems. Go to ER with severe worsening or severe problems. Chronic low back pain 27 5929627 M54.50 Tramadol. Counseled on exercise and weight loss. Impaired g lucose tolerance 3311349 R73.09 A1c 6.30 jan 2023. repeat labs. continue to work on diet, exercise. 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 [id number] Elena Eason DO [facility] ([facility]) [address] [place] [address] [phone] 5 07/03/2023 08:33:22 07/03/2023 09:28:52 Type 2 diabetes mellitus 56398276 E11.69 new DX 05/2022. severe reaction to metformin. tolerating the glipizide. continues to work on diet and weight loss. Essential hypertension 14227119 I10 improved. infact, may be getting too low with exercise and diet. monitor daily. consider decreasing her 10mg lisinopril to 5mg daily. Return to office with no improvemen t or any problems. Go to ER with severe worsening or severe problems. Morbid obesity 850912910 E66.01 improved. I counseled pt on obesity. We discussed risks and ways to loose weight. Pt will work on diet, exercise. [id number] RAJENDRA ABARCA [facility] ([facility]) [address] [place] [address] [phone] 5 07/23/2023 08:08:19 07/23/2023 13:24:04 Acute bacterial bronchitis 161458672 J20.9 Discussed use of antibiotic . Take with food.May use Noah's nasal inserts and also apply on chest. Push oral fluids. Consider nasal saline rinses.Use tylenol/mo fritz for ring.Return if you develop new or worsening s/s [id number] Elena Eason DO [facility] ([facility]) [address] [place] [address] [phone] 10/03/2023 08:01:57 10/03/2023 17:55:10 Type 2 diabetes mellitus 00170242 E11.69 Severe reaction to Metformin. 10/03/23- lab today. Continues Glipizide, tolerating well. Counseled on diet, exercise, continuing to work on weight loss. Essential hypertension 48454728 I10 stable, continue Lisinopril at 10mg daily, continue monitoring BP regularly. Morbid obesity 703732111 E66.01 Counseled on diet, exercise, continue working on weight loss. [id number] RAJENDRA ABARCA [facility] ([facility]) [address] [place] [address] [id number] 5 10/22/2023 12:18:40 10/22/2023 13:57:30 Exposure to SARS-CoV-2 717086074 Z20.822 Covid test negative. Viral swab obtained. Discussed otc meds for symptom support. Will contact patient tomorrow with swab results. [id number] Elena Eason DO [facility] ([facility]) [address] [place] [address] [phone] 11/06/2023 08:54:39 11/06/2023 09:59:22 Acute bronchitis 18583727 J20.9 Reviewed and discussed recent respirator y panel. Counseled concern for secondary infection, will treat with different abx, Prednisone . Pt requests Diflucan with abx. [id number] VALDO SPRING [employer]ER [facility] ([facility]) [address] [place] [address] [phone] 5 12/19/2023 09:49:24 12/19/2023 10:57:31 Acute suppurative otitis media without spontaneous rupture of ear drum 76668396 H66.002 Discussed use of antibiotic the full 7 days. May take tylenol/mo fritz for discomfort .Continue daily nasal spray daily in addition to an otc decongesta nt.Return if you develop worsening pain, drainage from the ear or concerns arise. [id number] Elena Eason DO [facility] ([facility]) [address] [place] [address] [phone] 5 01/15/2024 09:57:05 01/15/2024 10:54:54 Type 2 diabetes mellitus 54536886 E11.69 Severe reaction to Metformin. 01/15/24- A1c today, continue Glipizide, will start Mounjaro, Counseled on diagnosis, treatment options including medication s and possible side effects. Counseled on diet, exercise. Consider stopping Glipizide after being on Mounjaro, pending tolerance. 10/03/23- lab today. Continues Glipizide, tolerating well. Counseled on diet, exercise, continuing to work on weight loss. Essential hypertension 48502578 I10 01/15/24 BP running lower, down to 80's, counseled decrease Lisinopril from 10mg to 5mg. Morbid obesity 260203737 E66.01 Counseled on diet, exercise, continue working on weight loss. Active or passive immunization 134028817 Z23 I counseled pt on vaccinatio ns. they are willing to accept the Shingles vaccinatio n. given today, they will return in 8 wks for the 2nd/last booster. Venous blackburn 092038101 D1 8.01 01/15/24- R FA, concern for, pt to return for removal to send to pathology for confirmati on, r/o Melanoma. Not taking any Asa or anticoagul ants. Mild memor y disturbance 125722080 R41.3 01/15/24- Counseled on possible diagnosis, testing, treatment options. Pt to start paying close attention to what she is forgetting . Will draw lab today. [id number] Elena Eason DO [facility] ([facility]) [address] [place] [phone] 01/16/2024 10:16:18 01/16/2024 18:01:14 Vitamin D deficiency 53528826 E55.9 new DX. counseled patient on diagnosis. This may be affecting her for memory. Will start high-dose repletion. Repeat labs with follow-up in 3 months. Malignant melanoma 01888 4006 C43.9 Concern for. Lesion on right wrist excised with wide margins. Will send the pathology. Counseled patient on possible she diagnoses as well as other benign diagnoses. I counseled the patient on wound care including expectatio ns. We discussed signs and symptoms of worsening, infection, nonhealing , and other problems. Precaution s given. Patient expressed verbal understand ing.Is to return in 8 to 10 days for suture removal and follow-up on pathology. [id number] Elena Eason DO [facility] ([facility]) [address] [place] [address] [phone] 01/24/2024 08:18:04 01/24/2024 09:13:08 Malignant melanoma 642338189 C43.9 rulled out. Skin lesion removed December 2023 from right wrist was sent to pathology and proven to be a benign blue nevus.inci gisselle healing well. sutures removed without complicati ons. Steri-Stri ps applied . pt tolerated well. I counseled the patient on wound care including expectatio ns. We discussed signs and symptoms of worsening, infection, non healing, and other problems. Precaution s given. Patient expressed verbal understand ing. [id number] ALFONSO DIANA APRN [facility] ([facility]) [address] [place] [phone] 5 03/24/2024 09:18:57 03/28/2024 09:18:32 Acute otitis media 0142186 H66.91 [id number] Elena Eason DO [facility] ([facility]) [address] [place] [address] [id number] 5 04/16/2024 08:28:50 04/16/2024 17:55:31 Type 2 diabetes mellitus 76712317 E11.69 Severe reaction to Metformin. 01/15/24- A1c today, continue Glipizide, will start Mounjaro, Counseled on diagnosis, treatment options including medication s and possible side effects. Counseled on diet, exercise. Consider stopping Glipizide after being on Mounjaro, pending tolerance. 10/03/23- lab today. Continues Glipizide, tolerating well. Counseled on diet, exercise, continuing to work on weight loss. Essential hypertension 24283165 I10 04/16/24- stable, continue Lisinopril .01/15/24 BP running lower, down to 80's, counseled decrease Lisinopril from 10mg to 5mg. Morbid obesity 092023402 E66.01 Counseled on diet, exercise, continue working on weight loss. Mild memor y disturbance 208557175 R41.3 04/16/24- improving. 01/15/24- Counseled on possible diagnosis, testing, treatment options. Pt to start paying close attention to what she is forgetting . Will draw lab today. Seasonal a llergic rhinitis 754632940 J30.2 Refill Levocetiri zine. Chronic low back pain 27 6806661 M54.50 04/16/24- worsening, doesn't want to return to Surgeon at this time. Counseled on exercise, activity, consider joining a gym, at least 5 days per week. [id number] RAJENDRA ABARCA [facility] ([facility]) [address] [place] [address] [id number] 5 06/03/2024 09:11:31 06/03/2024 10:09:32 Acute pansinusitis 0044437 J01.40 Discussed use of antibiotic . Take with food.May use Noah's nasal inserts and also apply on chest. Push oral fluids. Consider nasal saline rinses and otc decongesta nt.Use tylenol/mo fritz for ring. [id number] Elena Eason DO [facility] ([facility]) [address] [place] [address] [phone] 5 06/11/2024 08:01:53 06/13/2024 07:55:56 History of myocardial infarction 010586619 I25.2 Per Stress test 06/04/24, f/u with Cardio as scheduled 06/17/24, has started Asa, Isosorbide , Metoprolol . Coronavirus infection 18 7435132 B34.2 + for Coronaviru s infection in the hospital on 06/04/24, negative for Covid. No PFT on record. Will consider PFT, we don't want to do this while she is ill with respirator y infection, will order this now, as it will take a few weeks to get the appt. After we obtain PFT, will refer to Alli Munoz [id number] Elena Eason DO [facility] ([facility]) [address] [place] [address] [phone] 5 09/02/2024 10:55:05 09/03/2024 10:14:27 Obstructive sleep apnea syndrome 72950505 G47.33 47174951 DX around 2007 in [place] with + Sleep study. She did not tolerate CPAP at that time. she has been working on sleep hygeine and trying to loose weight, but not successful . still with daytime sleeplines s and fatigue. Type 2 sara betes mellitus 99696115 E11.69 Severe reaction to Metformin. 09/02/24: I reviewed most recent labs with pt as per above. We reconciled medication s. We discussed diet, exercise, weight management . We discussed routine eye care and foot care. Pt to monitor glucose regularly. continue current medication s: glipizide. repeat labs: today. 01/15/24- A1c today, continue Glipizide, will start Mounjaro, Counseled on diagnosis, treatment options including medication s and possible side effects. Counseled on diet, exercise. Consider stopping Glipizide after being on Mounjaro, pending tolerance. 10/03/23- lab today. Continues Glipizide, tolerating well. Counseled on diet, exercise, continuing to work on weight loss. Morbid obesity 803070894 E66.01 Counseled on diet, exercise, continue working on weight loss. Cobalamin deficiency 190 215596 E53.8 continue b12 supplement ation. repeat labs today. counseled Essential hypertension 38422564 I10 stable, continue Lisinopril . Vitamin D deficiency 347 15266 E55.9 Continue supplement ation, repaet labs today. counseled Left rotat or cuff syndrome 5026679970 27041 M75.708 7833204 rest. nsaids. home exercises as illustrate d 2x/day x 15 minutes. xray today to eval for impingment . consider injection and/or PT Pain of knee region 1003 239712 M25.562 G89.29 52146295 concern for arthritis, labs today. rest. ice, nsaids. consider injection vs MRI pending Xrays. [id number] RAJENDRA ABARCA [facility] ([facility]) [address] [place] [address] 10/14/2024 12:39:03 10/15/2024 12:56:35 Herpes zoster 8335167 B02.9 43263182 No signs of skin infection from bacteria. With the burning/te nderness symptoms suspect shingles. Started on famiciclov ir.May use topical creams or cool washcloths to help with itching/bu rning sensation. If you develop fever or worsening s/s then return for re-evaluat ion [id number] Elena Eason DO [facility] ([facility]) [address] [place] [address] [phone] 5 10/21/2024 10:43:44 11/11/2024 08:30:25 Type 2 diabetes mellitus 70404616 E11.69 10/21/24: Zepbound not covered, pt using Ozempic, tolerating well, increase from .25 to .5mg wkly. F/u 1 month.Sofie re reaction to Metformin. 09/02/24: I reviewed most recent labs with pt as per above. We reconciled medication s. We discussed diet, exercise, weight management . We discussed routine eye care and foot care. Pt to monitor glucose regularly. continue current medication s: glipizide. repeat labs: today. 01/15/24- A1c today, continue Glipizide, will start Mounjaro, Counseled on diagnosis, treatment options including medication s and possible side effects. Counseled on diet, exercise. Consider stopping Glipizide after being on Mounjaro, pending tolerance. 10/03/23- lab today. Continues Glipizide, tolerating well. Counseled on diet, exercise, continuing to work on weight loss. Morbid obesity 837260633 E66.01 Counseled on diet, exercise, continue working on weight loss. Essential hypertension 54509609 I10 stable, continue Lisinopril . [id number] Elena Eason DO [facility] ([facility]) [address] [place] [address] [id number] 5 11/18/2024 10:15:00 11/26/2024 10:08:32 Type 2 diabetes mellitus 71748579 E11.69 10/21/24: Zepbound not covered, pt using Ozempic, tolerating well, increase from .25 to .5mg wkly. F/u 1 month.Sofie re reaction to Metformin. 09/02/24: I reviewed most recent labs with pt as per above. We reconciled medication s. We discussed diet, exercise, weight management . We discussed routine eye care and foot care. Pt to monitor glucose regularly. continue current medication s: glipizide. repeat labs: today. 01/15/24- A1c today, continue Glipizide, will start Mounjaro, Counseled on diagnosis, treatment options including medication s and possible side effects. Counseled on diet, exercise. Consider stopping Glipizide after being on Mounjaro, pending tolerance. 10/03/23- lab today. Continues Glipizide, tolerating well. Counseled on diet, exercise, continuing to work on weight loss. Morbid obesity 795411651 E66.01 Counseled on diet, exercise, continue working on weight loss. Essential hypertension 48351119 I10 stable, continue Lisinopril . [id number] Elena Eason DO [facility] ([facility]) [address] [place] [address] [phone] 5 12/30/2024 11:21:57 01/01/2025 14:00:19 Type 2 diabetes mellitus 60750068 E11.69 12/30/24: Increase Ozempic to 1 mg, lab today, f/u 2 months.09/29 08/22: Zepbound not covered, pt using Ozempic, tolerating well, increase from .25 to .5mg wkly. F/u 1 month.Sofie re reaction to Metformin. 09/02/24: I reviewed most recent labs with pt as per above. We reconciled medication s. We discussed diet, exercise, weight management . We discussed routine eye care and foot care. Pt to monitor glucose regularly. continue current medication s: glipizide. repeat labs: today. 01/15/24- A1c today, continue Glipizide, will start Mounjaro, Counseled on diagnosis, treatment options including medication s and possible side effects. Counseled on diet, exercise. Consider stopping Glipizide after being on Mounjaro, pending tolerance. 10/03/23- lab today. Continues Glipizide, tolerating well. Counseled on diet, exercise, continuing to work on weight loss. Morbid obesity 675598608 E66.01 Continue Ozempic. Counseled on diet, exercise, continue working on weight loss. Inflammato ry dermatosis 855266525 L30.9 [id number] 12/30/24: consider referral to Derm, pt prefers to wait and see if these areas clear up. [id number] Elena Eason DO [facility] ([facility]) [address] [place] [address] [phone] 5 02/26/2025 08:53:16 02/27/2025 10:04:09 Benign essential hypertension 8405010 I10 [id number] Elena E[facility] H[facility] ([facility]) [address] [place] [phone] 03/03/2025 12:16:34 03/03/2025 15:12:26 Type 2 diabetes mellitus [id number] E11.69 03/03/25: continue ozempic, will stop glipizide. f/u 4 mts. fasting labs piror: cmp, lipid, a1c,12/30/24 : Increase Ozempic to 1 mg, lab today, f/u 2 months.09/29 08/22: Zepbound not covered, pt using Ozempic, tolerating well, increase from .25 to .5mg wkly. F/u 1 month.Sofie re reaction to Metformin. 09/02/24: I reviewed most recent labs with pt as per above. We reconciled medication s. We discussed diet, exercise, weight management . We discussed routine eye care and foot care. Pt to monitor glucose regularly. continue current medication s: glipizide. repeat labs: today. 01/15/24- A1c today, continue Glipizide, will start Mounjaro, Counseled on diagnosis, treatment options including medication s and possible side effects. Counseled on diet, exercise. Consider stopping Glipizide after being on Mounjaro, pending tolerance. 10/03/23- lab today. Continues Glipizide, tolerating well. Counseled on diet, exercise, continuing to work on weight loss. Morbid obesity 020024253 E66.01 Continue Ozempic. Counseled on diet, exercise, continue working on weight loss. Inflammato ry dermatosis 143813100 L30.9 [id number] 03/03/25: not improved. will send to derm. 5: consider referral to Derm, pt prefers to wait and see if these areas clear up. Essential hypertension [id number] I10 03/03/25: some lows. even with cardiology stopping metoprolol . will decrease lisinopril to 2.5mg nightly. monitor closely [id number] RAJENDRA BLANCHARD [facility] [address] [place] [address] 03/21/2025 10:21:21 03/21/2025 10:45:25 Acute maxillary sinusitis 84025070 J01.00 [id number] May continue to use otc meds like xyzal and fluticason e nasal spray as needed for symptoms. Return to clinic with any new or worsening symptoms. Health Concerns Section Related Observation LastModified by Organization Detai ls LastModified Time None Recorded Concern Status LastModified by Organization Details LastModified Time None Recorded Advance Directives Directive None Recorded Payers Insurance Date Sequence Insurance Name Policy Number Policy Abbott Covered Member ID Abbott Member ID Guarantor Name 03/21/2025 1 [facility] ([facility] [id number] [facility] 03/24/2024 1 [facility] [id number] [facility] [id number] [facility] Nicole Notes Date Note Type Note Provider Name and Address Organization Details Recorded Time 11/18/2024 text/html ROS as noted in the HPI Pt presents for recheck 1 month DM, Obesity We ordered Zepbound at last visit, not covered, changed to Ozempic, which she has started and is tolerating well. Losing weight with Ozempic 0.5mg. increased to this dose 4 wks ago.No issues with low sugar.Exercising everyday except Sunday and Sunday. She wants spot on her face checked, its improving. Seen in [place] 10/14/24, advised Shingles, treated with Famciclovir. The spot came back and she is concerned about it BP 110/60 in clinic today, pt reports it has been running well, she is happy with it.Continues Metoprolol, Lisinopril, tolerating well. Her pulmonology appt has been moved up to the end of November from February Elena Eason DO [address] [place] [address], [phone], RIVERA Aguirre [facility] [place] 11/24/2024 11:46:47 12/30/2024 text/html ROS as noted in the HPI Pt presents for recheck 6 weeks obesity, DM She is currently on Ozempic 0.5 mg weekly and wants to increase to the 1mg dose, feels she doesn't have that feeling of not wanting food anymore. Continues Glipizide.A1c 5.9 on 09/02/24. She still has the spot on her face that won't go away. She has been told this was Shingles previously, has been applying abx cream, had another area come up yesterday, this is concerning to her. She saw Dr. Velasquez Pulmonology in [facility] last week. She felt this visit was a joke.He did not see any need for any meds or any further visit unless she needs to be seen again and would need a new referral. She has gotten back in with Dr. Oliveros's office, restarted allergy shots last week. Elena Eason DO [address] [place] [address], [phone], [facility] 01/01/2025 07:42:57 03/03/2025 text/html ROS as noted in the HPI 55-year-old female with history of HTN, DM and bells palsy presents for follow-up after having labs drawn on 02/26/25. 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 She was previously told it might be shingles and has been applying antibiotic cream. Was also prescribed Valacyclovir and has finished it. Lesions have been present for about a week this time. She would like a referral to dermatology. Elena Eason DO [address] [place] [address], [phone], [facility] 03/03/2025 13:53:44 03/21/2025 text/html ROS as noted in the HPI walk in ptPT is having sinus pain/pressure, dizzy, sore throat, and runny nose for 4 days. Has been compliant with allergy medications. RAJENDRA BLANCHARD [address] [place], [phone], [facility] [place] 03/21/2025 10:40:44 OBGyn Episode No OBEpisode recorded.
--- OUTSIDE RECORDS SUMMARY | 2025-04-24 11:57 | XMS_ITS | Continuity of Care Document ---
Author Organization [facility] Alec Aguirre [facility] LZana, [facility] ([facility]) Address [address] [place] [address] Care Team Providers Care Dealership Manager Name Role Phone ELENA EASON Primary Care Provider Assessment No assessment recorded. Plan of Treatment Reminders Order Date Submit Date Provider Last Modified By Organization Details Last Modified Time Details Appointments None recorded. Lab None recorded. Referral dermatolog ist referral 2024 [facility], [address] [place], [address], 14:24:57 Procedures None recorded. Surgeries None recorded. Imaging None recorded. Medication Orders lisinopril 2.5 mg tablet 2024 025 [facility] [place], [address] [place], [address], 13:29:31 Patient TargetsNo targets recorded. Patient InstructionsNo instructions recorded. Reason for Referral Mangle Roller Referral for I nflammatory dermatosis Referring Physician: Elena Eason, Family Medicine, Encounter Date: 03/03/2025 Results Created Date Observation Date Name Description Value Unit Range Abnormal Flag Note LastModifiedBy Organization Detail LastModifiedTime 02/27/20 25 02/26/2025 CMP (FEMA LE) glucose 97.0 mg/dL 60.0-9 9.0 Not Available [facility] [address] [address], [place], [address], 02/26/2025 10:04:12 02/27/20 25 02/26/2025 CMP (FEMA LE) BUN (blood urea nitrogen) 25.0 mg/dL 10.0-2 6.0 Not Available [facility] [address] [facility], [place], [address], 02/26/2025 10:04:12 02/27/20 25 02/26/2025 CMP (FEMA LE) creatinine (serum) 2.1 mg/dL 0.4-1. 5 high Not Available [facility] [address] [facility], [place], [address], 02/26/2025 10:04:12 02/27/20 25 02/26/2025 CMP (FEMA LE) BUN/creatini ne ratio 11.90 ratio Not Available [facility] [address] [facility], [place], [address], 02/26/2025 10:04:12 02/27/20 25 02/26/2025 CMP (FEMA LE) eGFR calculated 25.8 Not Available [facility] [address] [facility], [place], [address], 02/26/2025 10:04:12 02/27/20 25 02/26/2025 CMP (FEMA LE) total protein 6.8 g/dL 6.0-8. 5 Not Available [facility] [address] [facility], [place], [address], 02/26/2025 10:04:12 02/27/20 25 02/26/2025 CMP (FEMA LE) total bilirubin 0.8 mg/dL 0.2-1. 3 Not Available [facility] [address] [facility], [place], [address], 02/26/2025 10:04:12 02/27/20 25 02/26/2025 CMP (FEMA LE) albumin 4.1 g/dL 3.5-5. 5 Not Available [facility] [address] [facility], [place], [address], 02/26/2025 10:04:12 02/27/20 25 02/26/2025 CMP (FEMA LE) globulin 2.[address] [facility] [address] [facility], [place], [address], 02/26/2025 10:04:12 02/27/20 25 02/26/2025 CMP (FEMA LE) AST (SGOT) 40.0 U/L 0.0-46 .0 Not Available [facility] [address] [facility] [address], [place], [address], 02/26/2025 10:04:12 02/27/20 25 02/26/2025 CMP (FEMA LE) altv (SGPT) 22.0 U/L 13.0-6 9.0 normal Not Available [facility] [address] [place] [facility] 1, [place], [address], 02/26/2025 10:04:12 02/27/20 25 02/26/2025 CMP (FEMA LE) A/G ratio 1.5 ratio Not Available [facility] [address] [place] [facility] 1, [place], [address], 02/26/2025 10:04:12 02/27/20 25 02/26/2025 CMP (FEMA LE) ALP phos 81.0 U/L 30.0-1 40.0 normal Not Available [facility] [address] [place] [facility] 1, [place], [address], 02/26/2025 10:04:12 02/27/20 25 02/26/2025 CMP (FEMA LE) calcium 10.3 mg/dL 8.4-10 .5 Not Available [facility] [address] [facility] 1, [place], [address], 02/26/2025 10:04:12 02/27/20 25 02/26/2025 CMP (FEMA LE) sodium 135.0 mmol/ L 136.0- 145.0 low Not Available [facility] [address] [facility] 1, [place], [address], 02/26/2025 10:04:12 02/27/20 25 02/26/2025 CMP (FEMA LE) potassium 4.4 mmol/ L 3.5-5. 1 Not Available [facility] [address] [facility] 1, [place], [address], 02/26/2025 10:04:12 02/27/20 25 02/26/2025 CMP (FEMA LE) chloride 101.0 mmol/ L 98.0-1 10.0 normal Not Available [facility] [address] [facility] 1, [place], [address], 02/26/2025 10:04:12 02/27/20 25 02/26/2025 CMP (FEMA LE) C02 26.0 mmol/ L 22.0-3 1.0 Not Available [facility] [address] [facility] 1, [place], [address], 02/26/2025 10:04:12 02/27/20 25 02/26/2025 CMP (FEMA LE) anion gap 8.0 calc Not Available [facility] [address] [facility] 1, [place], [address], 02/26/2025 10:04:12 02/27/20 25 02/26/2025 CMP (FEMA LE) osmolality 283.2 calc Not Available [facility] [address] [place] [facility] 1, [place], [address], 02/26/2025 10:04:12 Result Notes None recorded. Problems Name Problem SNOMED Code Status Onset Date Resolution Date Notes Provider Name and Address Organization Details Recorded Time Kidney stone 13745872 Active 2022 Kidney stone removal 05/06 Valentina Mack dank [facility] 5 12:11:37 Arthritis 4118375 Active 2022 Valentinamessi Mack dank, [facility] 5 12:11:37 Benign essential hypertens ion 5573643 Active 2022 Hypertens ion; gestation al-11/30 Valentinamessi Mack dank [facility] 5 12:11:37 Gestation al diabetes mellitus 68762149 Active 2022 Valentina weems [facility] 5 12:11:37 section Active 2022 Section; ;11/30 Valentina Mack dank [facility] 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 Valentinamessi Martineztien weems [facility] 5 12:11:37 Chronic low back pain 655944993 Active 2022 Valentina Macktien weems [facility] 5 12:11:37 Impaired glucose tolerance 0368412 Active 2022 Valentina weems [facility] 5 12:11:37 Left lateral elbow tendinopa thy 030288225011 100 Active 2022 Valentina weems [facility] 5 12:11:37 Essential hypertens ion 28067618 Active 2023 Valentinazac weems, [facility] 5 12:11:37 Hyperlipi demia 73519502 Active 2023 Valentina weems, [facility] 5 12:11:37 Type 2 diabetes mellitus 66395302 Active 2023 Valentina Mack [facility], [facility] 5 12:11:37 Morbid obesity 854892360 Active 2023 Valentina Mack [facility] 5 12:11:37 Vitamin D deficienc y 79139898 Active 2023 Valentina Mack [facility] 5 12:11:37 Malignant melanoma 972437554 Active 2023 Valentina Mack [facility] 5 12:11:37 Cobalamin deficienc y 133125763 Active 2023 Elena Eason, [address], [phone] [place] [address], L[facility] 4 18:25:44 Pain of knee region 2863250828 Active 2024 Valentina Mack [facility] 5 12:11:36 Left rotator cuff syndrome 332540476605 106 Active 2024 Valentina Mack [facility] 5 12:11:37 Obstructi ve sleep apnea syndrome 11039332 Active 2024 Valentina Mack [facility] 12:11:37 Inflammat ory dermatosi s 289723375 Active 2024 Elena Eason DO [address] [place] [address], [phone], [facility] [place] 13:43:11 Problem Notes None recorded. Procedures Surgical History Date Name Laterality Status Provider Name and Address Organization Details Recorded Time Excision and closure completed Elena Eason DO [address] [place] [address], [phone], [facility] [place] 01/16/2024 12:12:33 operation on nasal septum completed [facility] [place] 10/22/2023 12:29:18 procedure on elbow completed [facility], [place] 10/22/2023 12:29:32 repair of joint of left knee completed Elena Eason DO [address] [place] [address], [phone], [facility] [place] 06/11/2024 14:09:54 procedure on ankle completed [facility], [place] 10/22/2023 12:29:48 destruction of lesion completed [facility], [facility] 10/22/2023 12:29:57 Imaging Results None recorded. Procedure Notes None recorded. Medical Equipment None Reported. Allergies Allergen ID Allergen Name Allergen Category Reaction Reaction Severity Criticality Documentation Date Start Date Code Code System Note Provider Name and Address Organization Details Recorded Time 55759 metformin medicatio n diarrhea moderate low 07/03/20232023 6809 RxNorm Elena Eason DO [address] [place] [address], [phone], [facility] [place] 09:01:17 Medications Name Sig Start Date [...] one time dose 02/08 completed Recorded 04/04/20 12:23PM by Maxwell Martinez, Office Visit; Refill [...] Available levocetir izine daily 02/08 completed DM/sd; 95789; Recorded 04/11/20 2:30PM by Haylie Arevalo (Authori wade through Elena Eason DO), Refill Request; Refill [...] Allergy 205.5 mcg (0.15 %) nasal spray [place] 1 spray twice a day by intranas [...] completed Not Available Not Available Not Available [employer] Ld 3 Plus Sensor device CHANGE and replace EVERY 15 DAYS active Not Available Not Available No t Available Vitals Date Recorded Body height Body mass index (BMI) Body weight Oxygen saturation Heart rate Respiratory rate Systolic And Diastolic Provider Name and Address Organization Details Last Updated DateTime 162.56 cm 33.5 kg/m2 09755.5 1 g 99 % 92 /min 18 /min 126/74 mm[Hg] JANICE DAVIES [facility] 13:12:24 Social History Question Answer Notes LastModified by Organizat ion Details LastModified Time Tobacco Smoking Status Former Smoker Kaye weems [facility] 06/03/2024 09:18:19 What Was The Date Of Your Most Recent Tobacco Screening? 03/21/2025 [email or web address] Information not available 03/21/2025 Sex: Unknown Functional [...] N Breast Cancer N Blood Transfusion N Hypothyroidism N Lung Disease N COPD N Depression N Defects or Inherited Disease N Developmental or Behavioral Disorders N Breast Problem N Difficulty Swallowing N Anesthesia Complications N Meniere's disease N Anxiety Disorder N Muscle, Joint, or Bone Problems N Vision or Eye Problems N Arthritis N Infertility N Polyps N Cancer N Stroke N Varicosities N Endometriosis N Bladder or Kidney Problems N High Cholesterol N Liver Disease N Fibromyalgia N Headaches N Kidney Disease N Allergies/Hayfever N Heart [...] N Heart Disease N Pulmonary Embolism N Chronic Ear Infections N Pre-Eclampsia N Hypertension N Chicken Pox N Autism Spectrum Disorder (ASD) N Osteoporosis N Thrombophilias N Gynecological HistoryNo gynecological history recorded. Obstetrics History GPAL:G 0 P 0 0 0 0 Immunizations Vaccine Type Date Status Note Provider Nam e and Address Organization Details Recorded Time zoster recombinant 1 completed Patti weems [facility] 10/22/2023 12:23:53 COVID-19, mRNA, LNP-S, PF, 30 mcg/0.3 mL dose 1 completed Patti weems [facility] 10/22/2023 12:23:53 COVID-19, mRNA, LNP-S, PF, 30 mcg/0.3 mL dose 1 completed Patti weems [facility] 10/22/2023 12:23:53 COVID-19, mRNA, LNP-S, PF, 30 mcg/0.3 mL dose 1 completed Patti weems [facility], ShavonLGalen[facility] 10/22/2023 12:23:53 Influenza, split virus, quadrivalent, PF 1 completed Patti weems [facility], [facility]aziz[facility] 10/22/2023 12:23:53 COVID-19, mRNA, LNP-S, PF, 50 mcg/0.5 mL 3 completed Valentina weems [facility], Abdulaziz[facility] 11/06/2023 08:58:17 Influenza, split virus, trivalent, preservative 4 completed Not Available [facility] 03/03/2025 12:16:48 Influenza, split virus, quadrivalent, PF 7 completed Not Available [facility] 03/03/2025 12:16:48 Influenza, split virus, quadrivalent, PF 8 completed Not Available [facility] 03/03/2025 12:16:48 COVID-19, mRNA, LNP-S, PF, vashti-sucrose, 30 mcg/0.3 mL 5 completed Not Available [facility] 03/03/2025 12:16:48 Influenza, split virus, trivalent, PF 5 completed Not Available [facility] 03/03/2025 12:16:48 zoster recombinant 3 completed Elena Eason DO [address] [place] [address], [phone], [facility], L[facility]en[facility] 03/14/2023 17:19:26 zoster recombinant 3 completed Not Available [facility] 04/13/2023 08:37:19 Influenza, split virus, trivalent, PF 4 completed Elena Eason DO [address] [place] [address], [phone], [facility] 01/17/2024 18:19:12 Novel Ecesxfssi-E2N2-98 , all formulations 3 completed Not Available [facility] 11/25/2022 02:28:48 Influenza, split virus, trivalent, preservative 3 completed Not Available [facility] 11/25/2022 02:28:50 Past Encounters Encounter ID Performer Location Encounter Start Date Encounter Closed Date Diagnosis/Indication Diagnosis SNOMED-CT Code Diagnosis ICD10 Code Diagnosis IMO Codes Diagnosis Note [id number] Elena Eason DO [facility] ([facility]) [address] [place] [phone] 02/26/2025 08:53:16 02/27/2025 10:04:09 Benign essential hypertension 7740880 I10 [id number] Elena Eason DO [facility] ([facility]) [address] [place] [phone] 03/03/2025 12:16:34 03/03/2025 15:12:26 Type 2 diabetes mellitus 95313453 E11.69 03/03/25: continue ozempic, will stop glipizide. [...] to work on weight loss. Morbid obesity 516735736 E66.01 Continue Ozempic. Counseled on diet, exercise, continue working on weight loss. Inflammato ry dermatosis 316240570 L30.9 [id number] 03/03/25: not improved. will send to derm. 5: consider referral to Derm, pt prefers to wait and see if these areas clear up. Essential hypertension 43026489 I10 03/03/25: some lows. even with cardiology stopping metoprolol . will decrease lisinopril to 2.5mg nightly. monitor closely Health Concerns Section Related Observation LastModified by Organization Detai ls LastModified Time None Recorded Concern Status LastModified by Organization Details LastModified Time None Recorded Payers Encounter Date Sequence Insurance Name Policy Number Policy Abbott Covered Member ID Abbott Member ID Guarantor Name 03/03/2025 1 [facility]) Magen Nicole [id number] Lisa Navarro Nicole Notes Date Note Type Note Provider Name and Address Organization Details Recorded Time 03/03/2025 text/html ROS as noted in the HPI 55-year-old female with history of HTN, DM and bells palsy presents for follow-up after having labs drawn on 02/26/25. 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 Elena Eason, DO [address] [place] [address], [phone], [facility] 03/03/2025 13:53:44 OBGyn Episode No OBEpisode recorded.
--- OUTSIDE RECORDS SUMMARY | 2025-04-24 11:57 | XMS_ITS | Continuity of Care Document ---
Author Organization 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 Plan of Treatment Reminders Order Date Submit Date Provider Last Modified By Organization Details Last Modified Time Details Appointments None recorded . Lab CMP, serum or plasma 025 02/27/20 [place] [facility], [address], [facility], [place], [address], 10:04:12 Referral None recorded . Procedures None recorded . Surgeries None recorded . Imaging None recorded . Medication Orders None recorded . Patient TargetsNo targets recorded. Patient InstructionsNo instructions recorded. Reason for Referral None Reported. Results Created Date Observation Date Name Description Value Unit Range Abnormal Flag Note LastModifiedBy Organization Detail LastModifiedTime 02/27/2002/26/2025 CMP (FEMA LE) glucose 97.0 mg/dL 60.0-9 9.0 Not Available [facility] [address] [facility] [address], [place], [address], 02/26/2025 10:04:12 02/27/20 25 02/26/2025 CMP (FEMA LE) BUN (blood urea nitrogen) 25.0 mg/dL 10.0-2 6.0 Not Available [facility] [address] [facility] [address], [place], [address], 02/26/2025 10:04:12 02/27/20 25 02/26/2025 CMP (FEMA LE) creatinine (serum) 2.1 mg/dL 0.4-1. 5 high Not Available [facility] [address] [facility] [address], [place], [address], 02/26/2025 10:04:12 02/27/20 25 02/26/2025 CMP (FEMA LE) BUN/creatini ne ratio 11.90 ratio Not Available [facility] [address] [facility] [address], [place], [address], 02/26/2025 10:04:12 02/27/20 25 02/26/2025 CMP (FEMA LE) eGFR calculated 25.8 Not Available [facility] [address] [facility] [address], [place], [address], 02/26/2025 10:04:12 02/27/20 25 02/26/2025 CMP (FEMA LE) total protein 6.8 g/dL 6.0-8. 5 Not Available [facility] [address] [facility] [address], [place], [address], 02/26/2025 10:04:12 02/27/20 25 02/26/2025 CMP (FEMA LE) total bilirubin 0.8 mg/dL 0.2-1. 3 Not Available [facility] [address] [facility] [address], [place], [address], 02/26/2025 10:04:12 02/27/20 25 02/26/2025 CMP (FEMA LE) albumin 4.1 g/dL 3.5-5. 5 Not Available [facility] [address] [facility] [address], [place], [address], 02/26/2025 10:04:12 02/27/20 25 02/26/2025 CMP (FEMA LE) globulin 2.7 calc Not Available [facility] [address] [facility] [address], [place], [address], 02/26/2025 10:04:12 02/27/20 25 02/26/2025 CMP (FEMA LE) AST (SGOT) 40.0 U/L 0.0-46 .0 Not Available [facility] [address] [facility] [address], [place], [address], 02/26/2025 10:04:12 02/27/20 25 02/26/2025 CMP (FEMA LE) altv (SGPT) 22.0 U/L 13.0-6 9.0 normal Not Available [facility] [address] [facility] [address], [place], [address], 02/26/2025 10:04:12 02/27/20 25 02/26/2025 CMP (FEMA LE) A/G ratio 1.5 ratio Not Available [facility] [address] [facility] [address], [place], [address], 02/26/2025 10:04:12 02/27/20 25 02/26/2025 CMP (FEMA LE) ALP phos 81.0 U/L 30.0-1 40.0 normal Not Available [facility] [address] [facility] [address], [place], [address], 02/26/2025 10:04:12 02/27/20 25 02/26/2025 CMP (FEMA LE) calcium 10.3 mg/dL 8.4-10 .5 Not Available [facility] [address] [facility] [address], [place], [address], 02/26/2025 10:04:12 02/27/20 25 02/26/2025 CMP (FEMA LE) sodium 135.0 mmol/ L 136.0- 145.0 low Not Available [facility] [address] [facility] [address], [place], [address], 02/26/2025 10:04:12 02/27/2002/26/2025 CMP (FEMA LE) potassium 4.4 mmol/ L 3.5-5. 1 Not Available [facility] [address] [facility] [address], [place], [address], 02/26/2025 10:04:12 02/27/20 25 02/26/2025 CMP (FEMA LE) chloride 101.0 mmol/ L 98.0-1 10.0 normal Not Available [facility] [address] [facility] [address], [place], [address], 02/26/2025 10:04:12 02/27/20 25 02/26/2025 CMP (FEMA LE) C02 26.0 mmol/ L 22.0-3 1.0 Not Available [facility] [address] [facility] [address], [place], [address], 02/26/2025 10:04:12 02/27/2002/26/2025 CMP (FEMA LE) anion gap 8.0 calc Not Available [facility] [address] [facility] [address], [place], [address], 02/26/2025 10:04:12 02/27/2002/26/2025 CMP (FEMA LE) osmolality 283.2 calc Not Available [facility] [address] [facility] [address], [place], [address], 02/26/2025 10:04:12 Result Notes None recorded. Problems Name Problem SNOMED Code Status Onset Date Resolution Date Notes Provider Name and Address Organization Details Recorded Time Kidney stone 59112206 Active 2022 Kidney stone removal 05/06 Valentina weems [place] - [facility] 12:11:37 Arthritis 4837319 Active 2022 Valentina Mack dank, [facility] 5 12:11:37 Benign essential hypertens ion 0793889 Active 2022 Hypertens ion; gestation al-11/30 Valentinamessi Mack null, [facility] 5 12:11:37 Gestation al diabetes mellitus 11061384 Active 2022 Valentinamessi Mack null, [facility] 5 12:11:37 section Active 2022 Section; ;11/30 Valentinamessi Mack dank, [facility] 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 Valentina Martineze null, [facility] 5 12:11:37 Chronic low back pain 057486955 Active 2022 Valentinamessi Mack dank, [facility] 5 12:11:37 Impaired glucose tolerance 1025057 Active 2022 Valentinamessi Martineztien weems, [facility] 5 12:11:37 Left lateral elbow tendinopa thy 330052042318 100 Active 2022 Valentinamessi Mack null, [facility] 5 12:11:37 Essential hypertens ion 73562590 Active 2023 Valentinamessi Mack dank, [facility] 5 12:11:37 Hyperlipi demia 19408496 Active 2023 Valentina weems, [facility] 5 12:11:37 Type 2 diabetes mellitus 13825682 Active 2023 [facility]ina [facility] 5 12:11:37 Morbid obesity 764327399 Active 2023 Valentina [facility]ze [facility] 5 12:11:37 Vitamin D deficienc y 00986761 Active 2023 Valentina [facility]ineze [facility] 5 12:11:37 Malignant melanoma 705899777 Active 2023 Valentina Mack [facility] 5 12:11:37 Cobalamin deficienc y 691242942 Active [address], [address], [facility] 4 18:25:44 Pain of knee region 4569776592 Active 2024 Valentinamessi Martineze [facility] 5 12:11:36 Left rotator cuff syndrome 684167784169 106 Active 2024 Valentinamessi [facility]ineze [facility] 5 12:11:37 Obstructi ve sleep apnea syndrome 76109065 Active 2024 Valentinamessi Martineze [facility] 5 12:11:37 Inflammat ory dermatosi s 996386216 Active 2024 Elena Cherry [address], [address], [facility] 5 13:43:11 Problem Notes None recorded. Procedures Surgical History Date Name Laterality Status Provider Name and Address Organization Details Recorded Time Excision and closure completed Elena Cherry [address] [place], [address], [facility], [place] 01/16/2024 12:12:33 operation on nasal septum completed [facility] [place] 10/22/2023 12:29:18 procedure on elbow completed [facility] [place] 10/22/2023 12:29:32 repair of joint of left knee completed Elena Cherry [address], [address], [facility], [place] 06/11/2024 14:09:54 procedure on ankle [facility] 10/22/2023 12:29:48 destruction of lesion completed [facility], [place] 10/22/2023 12:29:57 Imaging Results None recorded. Procedure Notes None recorded. Medical Equipment None Reported. Allergies Allergen ID Allergen Name Allergen Category Reaction Reaction Severity Criticality Documentation Date Start Date Code Code System Note Provider Name and Address Organization Details Recorded Time 85189 metformin medicatio n diarrhea moderate low 07/03/20232023 6809 RxNorm Elena Cherry [address] [place] [address], [phone], [facility], [place] 09:01:17 Medications Name Sig Start Date [...] tablet daily 06/05 completed 0; Recorded 07/15/19 6:10PM by Varghese Torres, Office Visit; Not [...] Available levocetir izine daily 02/08 completed DM/sd; 41113; Recorded 04/11/20 22 2:30PM by Haylie Arevalo (i wade through Elena Cherry DO), Refill Request; Refill Quantity : 90; [...] Allergy 205.5 mcg (0.15 %) nasal spray Counselor 1 spray twice a day by intranas [...] completed Not Available Not Available Not Available [employer] 3 Plus Sensor device CHANGE and replace EVERY 15 DAYS active Not Available Not Available No t Available Vitals None Recorded Social History Question Answer Notes LastModified by [employer] ion Details LastModified Time Tobacco Smoking Status Former Smoker Kaye Nicholskamar [facility] 06/03/2024 09:18:19 What Was The Date Of Your Most Recent Tobacco Screening? 03/21/2025 [email or web address] Information not available 03/21/2025 Sex: Unknown Functional Status Question Answer Note LastModified by [employer] ion Details LastModified Time Do you use [...] Cancer N Blood Transfusion N Depression N Hypothyroidism N Lung Disease N COPD N Developmental or Behavioral Disorders N Defects or Inherited Disease N Breast Problem N Difficulty Swallowing N Anesthesia Complications N Anxiety Disorder N Meniere's disease N Muscle, Joint, or Bone Problems N [...] Time zoster recombinant 1 completed Patti weems [facility] 10/22/2023 12:23:53 COVID-19, mRNA, LNP-S, PF, 30 mcg/0.3 mL dose 1 completed Patti weems [facility] 10/22/2023 12:23:53 COVID-19, mRNA, LNP-S, PF, 30 mcg/0.3 mL dose 1 completed Patti weems [facility] 10/22/2023 12:23:53 COVID-19, mRNA, LNP-S, PF, 30 mcg/0.3 mL dose 1 completed Patti weems [facility] 10/22/2023 12:23:53 Influenza, split virus, quadrivalent, PF 1 completed Patti weems [facility] 10/22/2023 12:23:53 COVID-19, mRNA, LNP-S, PF, 50 mcg/0.5 mL 3 completed Valentina weems [facility] 11/06/2023 08:58:17 Influenza, split virus, trivalent, preservative 4 completed Not Available [facility] 03/03/2025 12:16:48 Influenza, split virus, quadrivalent, PF 7 completed Not Available [facility] 03/03/2025 12:16:48 Influenza, split virus, quadrivalent, PF 8 completed Not Available [facility] 03/03/2025 12:16:48 COVID-19, mRNA, LNP-S, PF, vashti-sucrose, 30 mcg/0.3 mL 5 completed Not Available [facility] 03/03/2025 12:16:48 Influenza, split virus, trivalent, PF 5 completed Not Available [facility] 03/03/2025 12:16:48 zoster recombinant 3 completed Elena Cherry DO [address] [place] [address], [phone], [facility] 03/14/2023 17:19:26 zoster recombinant 3 completed Not Available [facility] 04/13/2023 08:37:19 Influenza, split virus, trivalent, PF 4 completed Elena Cherry DO [address] [place] [address], [phone], [facility] 01/17/2024 18:19:12 Novel [id number] , all formulations 3 completed Not Available [facility] 11/25/2022 02:28:48 Influenza, split virus, trivalent, preservative 3 completed Not Available [facility] 11/25/2022 02:28:50 Past Encounters Encounter ID Performer Location Encounter Start Date Encounter Closed Date Diagnosis/Indication Diagnosis SNOMED-CT Code Diagnosis ICD10 Code Diagnosis IMO Codes Diagnosis Note [id number] Elena Cherry DO [facility] ([facility]) [address] [place] [phone] 02/26/2025 08:53:16 02/27/2025 10:04:09 Benign essential hypertension 3243955 I10 Health Concerns Section Related Observation LastModified by Organization Detai ls LastModified Time None Recorded Concern Status LastModified by Organization Details LastModified Time None Recorded Payers Encounter Date Sequence Insurance Name Policy Number Policy Abbott Covered Member ID Abbott Member ID Guarantor Name 02/26/2025 1 [facility] Magen Nicole [id number] Lisa Navarro Nicole OBGyn Episode No OBEpisode recorded.
--- OUTSIDE RECORDS SUMMARY | 2025-04-24 11:57 | XMS_ITS | Continuity of Care Document ---
Author Organization [facility], [facility] ([facility]) Address [address] [place] [address] Care Team Providers Care Java Lead Engineer Name Role Phone ELENA EASON Primary Care Provider Assessment No assessment recorded. Plan of Treatment Reminders Order Date Submit Date Provider Last Modified By Organization Details Last Modified Time Details Appointments None recorded. Lab None recorded. Referral None recorded. Procedures None recorded. Surgeries None recorded. Imaging None recorded. Medication Orders amoxicillin 875 mg-potassiu m clavulanate 125 mg tablet 2024 025 [facility] [place], [address] [place] [address], [address], 05:00:54 Patient TargetsNo targets recorded. Patient InstructionsNo instructions recorded. Reason for Referral None Reported. Results Created Date Observation Date Name Description Value Unit Range Abnormal Flag Note LastModifiedBy Organization Detail LastModifiedTime 02/27/2002/26/2025 CMP (FEMA LE) glucose 97.0 mg/dL 60.0-9 9.0 Not Available [facility] [address], [address], 02/26/2025 10:04:12 02/27/20 25 02/26/2025 CMP (FEMA LE) BUN (blood urea nitrogen) 25.0 mg/dL 10.0-2 6.0 Not Available [facility] [address], [address], 02/26/2025 10:04:12 02/27/20 25 02/26/2025 CMP (FEMA LE) creatinine (serum) 2.1 mg/dL 0.4-1. 5 high Not Available [facility] [address] [facility], [place], [address], 02/26/2025 10:04:12 02/27/20 25 02/26/2025 CMP (FEMA LE) BUN/creatini ne ratio 11.90 ratio Not Available [facility] [address] [place] [facility], [place], [address], 02/26/2025 10:04:12 02/27/20 25 02/26/2025 CMP (FEMA LE) eGFR calculated 25.8 Not Available [facility] [address] [facility], [place], [address], 02/26/2025 10:04:12 02/27/20 25 02/26/2025 CMP (FEMA LE) total protein 6.8 g/dL 6.0-8. 5 Not Available [facility] [address] [facility], [place], [address], 02/26/2025 10:04:12 02/27/20 25 02/26/2025 CMP (FEMA LE) total bilirubin 0.8 mg/dL 0.2-1. 3 Not Available [facility] [address] [facility] [facility], [place], [address], 02/26/2025 10:04:12 02/27/20 25 02/26/2025 CMP (FEMA LE) albumin 4.1 g/dL 3.5-5. 5 Not Available [facility] [address] [facility] [facility], [place], [address], 02/26/2025 10:04:12 02/27/20 25 02/26/2025 CMP (FEMA LE) globulin 2.7 calc Not Available [facility] [address] [facility] 1, [place], [address], 02/26/2025 10:04:12 02/27/20 25 02/26/2025 CMP (FEMA LE) AST (SGOT) 40.0 U/L 0.0-46 .0 Not Available [facility] [address] [facility] 1, [place], [address], 02/26/2025 10:04:12 02/27/20 25 02/26/2025 CMP (FEMA LE) altv (SGPT) 22.0 U/L 13.0-6 9.0 normal Not Available [place] [facility] [address] [facility] 1, [place], [address], 02/26/2025 10:04:12 02/27/20 25 02/26/2025 CMP (FEMA LE) A/G ratio 1.5 ratio Not Available [facility] [address] [facility] 1, [place], [address], 02/26/2025 10:04:12 02/27/20 25 02/26/2025 CMP (FEMA LE) ALP phos 81.0 U/L 30.0-1 40.0 normal Not Available [facility] [address] [facility] 1, [place], [address], 02/26/2025 10:04:12 02/27/20 25 02/26/2025 CMP (FEMA LE) calcium 10.3 mg/dL 8.4-10 .5 Not Available [facility] [address] [facility] 1, [place], [address], 02/26/2025 10:04:12 02/27/20 25 02/26/2025 CMP (FEMA LE) sodium 135.0 mmol/ L 136.0- 145.0 low Not Available [facility] [address] [facility], [place], [address], 02/26/2025 10:04:12 02/27/20 25 02/26/2025 CMP (FEMA LE) potassium 4.4 mmol/ L 3.5-5. 1 Not Available [facility] [address] [facility] 1, [place], [address], 02/26/2025 10:04:12 02/27/20 25 02/26/2025 CMP (FEMA LE) chloride 101.0 mmol/ L 98.0-1 10.0 normal Not Available [facility] [address] [facility] 1, [place], [address], 02/26/2025 10:04:12 02/27/20 25 02/26/2025 CMP (FEMA LE) C02 26.0 mmol/ L 22.0-3 1.0 Not Available [facility] [address] [facility] 1, [place], [address], 02/26/2025 10:04:12 02/27/2002/26/2025 CMP (FEMA LE) anion gap 8.0 calc Not Available [facility] [address] [facility] 1, [place], [address], 02/26/2025 10:04:12 02/27/20 25 02/26/2025 CMP (FEMA LE) osmolality 283.2 calc Not Available [facility] [address] [facility] 1, [place], [address], 02/26/2025 10:04:12 Result Notes None recorded. Problems Name Problem SNOMED Code Status Onset Date Resolution Date Notes Provider Name and Address Organization Details Recorded Time Kidney stone 84181296 Active 2022 Kidney stone removal 05/06 RIVERA Gutierrez - [facility] 5 12:11:37 Arthritis 9247869 Active 2022 Valentinamessi Mack dank, [facility] 5 12:11:37 Benign essential hypertens ion 0015340 Active 2022 Hypertens ion; gestation al-11/30 Valentinamessi Martineztien weems, [facility] 5 12:11:37 Gestation al diabetes mellitus 52005317 Active 2022 Valentinamessi Martineze null, [facility] 5 12:11:37 section Active 2022 Section; ;11/30 Valentinazac Mack dank, [facility] 5 12:11:36 Hightower's palsy 255559498 Active 2022 Hightower's Palsy; 11/30-imme diately after deliverin g daughter. Valentinamessi Martineztien weems, [facility] 5 12:11:37 Chronic low back pain 320082741 Active 2022 Valentina weems, [facility] 5 12:11:37 Impaired glucose tolerance 4016165 Active 2022 Valentina weems, [facility] 5 12:11:37 Left lateral elbow tendinopa thy 557452447555 100 Active 2022 Valentina Mack null, [facility] 5 12:11:37 Essential hypertens ion 55817036 Active 2023 Valentina Mack null, [facility] 5 12:11:37 Hyperlipi demia 02721436 Active 2023 Valentina weems, [facility] 5 12:11:37 Type 2 diabetes mellitus 69177514 [facility] 2023 [facility] 12:11:37 Morbid obesity 255197545 Active 2023 Valentina Mack [facility] 5 12:11:37 Vitamin D deficienc y 11827053 Active 2023 Valentina Mack [facility] 5 12:11:37 Malignant melanoma 011795080 Active 2023 Valentina Mack [facility] 5 12:11:37 Cobalamin deficienc y 397614065 Active [address], [address], [facility] 4 18:25:44 Pain of knee region 0242469003 Active 2024 Valentina Mack [facility] 5 12:11:36 Left rotator cuff syndrome 552488320460 106 Active 2024 Valentina Martineze [facility] 5 12:11:37 Obstructi ve sleep apnea syndrome 49624869 Active 2024 Valentina Mack [facility] 5 12:11:37 Inflammat ory dermatosi s 388924190 Active 2024 Elena [address], [address], [facility] 5 13:43:11 Problem Notes None recorded. Procedures Surgical History Date Name Laterality Status Provider Name and Address Organization Details Recorded Time Excision and closure completed Elena Eason DO [address] [place] [address], [address], [facility], ShavonLGalenCGalen 01/16/2024 12:12:33 operation on nasal septum completed [facility], [place] 10/22/2023 12:29:18 procedure on elbow completed [facility], ShavonLGalenCGalen 10/22/2023 12:29:32 repair of joint of left knee completed Elena Eason [address] [place] [address], [phone], [facility], ShavonLWally 06/11/2024 14:09:54 procedure on ankle completed [facility], [place] 10/22/2023 12:29:48 destruction of lesion completed [facility], LGalenLGalenCGalen 10/22/2023 12:29:57 Imaging Results None recorded. Procedure Notes None recorded. Medical Equipment None Reported. Allergies Allergen ID Allergen Name Allergen Category Reaction Reaction Severity Criticality Documentation Date Start Date Code Code System Note Provider Name and Address Organization Details Recorded Time 44380 metformin medicatio n diarrhea moderate low 07/03/20232023 6809 RxNorm Elena Eason DO [address] [place] [address], [phone] , [facility], LGalenLGalenCGalen 09:01:17 Medications Name Sig Start Date Stop [...] 0; Recorded 07/15/19 23 6:10PM by Varghese Torrse, Office Visit; Not Available Not Available Not [...] Available levocetir izine daily 02/08 completed DM/sd; 18420; Recorded 04/11/20 22 2:30PM by Haylie Arevalo [...] Allergy 205.5 mcg (0.15 %) nasal spray [place] 1 spray twice a day by intranas [...] completed Not Available Not Available Not Available [employer] 3 Plus Sensor device CHANGE and replace EVERY 15 DAYS active Not Available Not Available No t Available Vitals Date Recorded Body height Body mass index (BMI) Body weight Body temperature Heart rate Oxygen saturation Systolic And Diastolic Provider Name and Address Organization Details Last Updated DateTime 162.56 cm 32.3 kg/m2 66124.7 7 g 97.8 [degF] 107 /min 99 % 126/70 mm[Hg] Emily Gary [facility] 10:29:26 Social History Question Answer Notes LastModified by Mytopia Details LastModified Time Tobacco Smoking Status Former Smoker Kaye weems [facility] 06/03/2024 09:18:19 What Was The Date Of Your Most Recent Tobacco Screening? 03/21/2025 [email or web address] Information not available 03/21/2025 Sex: Unknown Functional Status Question Answer Note LastModified by Mytopia Details LastModified Time Do you use any [...] Time zoster recombinant 1 completed Patti weems [facility], L.LGalenCGalen 10/22/2023 12:23:53 COVID-19, mRNA, LNP-S, PF, 30 mcg/0.3 mL dose 1 completed Patti weems [facility], L.LGalenCGalen 10/22/2023 12:23:53 COVID-19, mRNA, LNP-S, PF, 30 mcg/0.3 mL dose 1 completed Patti weems [facility], L.LGalenCGalen 10/22/2023 12:23:53 COVID-19, mRNA, LNP-S, PF, 30 mcg/0.3 mL dose 1 completed Patti weems [facility], L.LGalenCGalen 10/22/2023 12:23:53 Influenza, split virus, quadrivalent, PF 1 completed Patti weems, [facility] 10/22/2023 12:23:53 COVID-19, mRNA, LNP-S, PF, 50 mcg/0.5 mL 3 completed Valentina weems, [facility] 11/06/2023 08:58:17 Influenza, split virus, trivalent, preservative 4 completed Not Available [facility] 03/03/2025 12:16:48 Influenza, split virus, quadrivalent, PF 7 completed Not Available [facility] 03/03/2025 12:16:48 Influenza, split virus, quadrivalent, PF 8 completed Not Available [facility] 03/03/2025 12:16:48 COVID-19, mRNA, LNP-S, PF, vashti-sucrose, 30 mcg/0.3 mL 5 completed Not Available [facility] 03/03/2025 12:16:48 Influenza, split virus, trivalent, PF 5 completed Not Available [facility] 03/03/2025 12:16:48 zoster recombinant 3 completed Elena Eason DO [address] [place] [address], [phone], [facility] 03/14/2023 17:19:26 zoster recombinant 3 completed Not Available [facility] 04/13/2023 08:37:19 Influenza, split virus, trivalent, PF 4 completed Elena Eason DO [address] [place] [address], [phone], [facility] 01/17/2024 18:19:12 Novel [id number] , all formulations 3 completed Not Available [facility] 11/25/2022 02:28:48 Influenza, split virus, trivalent, preservative 3 completed Not Available [facility] 11/25/2022 02:28:50 Past Encounters Encounter ID Performer Location Encounter Start Date Encounter Closed Date Diagnosis/Indication Diagnosis SNOMED-CT Code Diagnosis ICD10 Code Diagnosis IMO Codes Diagnosis Note [id number] Elenanaz EasonDO [facility] ([facility]) [address] [place] [phone] 02/26/2025 08:53:16 02/27/2025 10:04:09 Benign essential hypertension 6372037 I10 [id number] Elena Eason DO [facility] ([facility]) [address] [place] [phone] 03/03/2025 12:16:34 03/03/2025 15:12:26 Type 2 diabetes mellitus 66304483 E11.69 03/03/25: continue ozempic, will stop glipizide. [...] to work on weight loss. Morbid obesity 017276915 E66.01 Continue Ozempic. Counseled on diet, exercise, continue working on weight loss. Inflammato ry dermatosis 448767307 L30.9 [id number] 03/03/25: not improved. will send to derm. 5: consider referral to Derm, pt prefers to wait and see if these areas clear up. Essential hypertension 99558340 I10 03/03/25: some lows. even with cardiology stopping metoprolol . will decrease lisinopril to 2.5mg nightly. monitor closely [id number] RAJENDRA BLANCHARD [facility] [address] [place] [address] 03/21/2025 10:21:21 03/21/2025 10:45:25 Acute maxillary sinusitis 82051655 J01.00 [id number] May continue to use otc meds like [...] Abbott Member ID Guarantor Name 03/21/2025 1 [facility] [id number] Lisa Navarro Nicole Notes Date Note Type Note Provider Name and Address Organization Details Recorded Time 03/21/2025 text/html ROS as noted in the HPI walk in ptPT is having sinus pain/pressure, dizzy, sore throat, and runny nose for 4 days. Has been compliant with allergy medications. RAJENDRA BLANCHARD [address] [place], [address], [facility], [place] 03/21/2025 10:40:44 OBGyn Episode No OBEpisode recorded.
--- OUTSIDE RECORDS SUMMARY | 2025-04-24 11:57 | XMS_ITS | Patient Health Record ---
Author Organization [facility] Address [address] [facility] [place] [address] Care Team Providers Care Die Sinker Name Role Phone Sharad Cherry DO Primary Care Provider Unavail able Bruno Velasquez Unavailable [phone] Allergies Allergen (clinical drug ingredient) Drug/Non Drug Allergy documented on EMR Reaction Allergy Type Onset Date Status metformin metFORMIN HCl Unknown Drug Allergy Act césar Reason For Referral Reason Asthma PFT report in referral, Echo done on 06/04/24: waiting on report & imaging 08/12: Reports received, it was sent in referral form, so it has been put under referrals Scheduled 03/10/2025 @ 11:30 AM Diagnosis 1 Asthma (J45.909) Referring Provider First Name Sharad Referring Provider Last Name Dilip Referring Provider Speciality Family Med icine Referred Organization [facility] Referred Provider Bruno Velasquez Referred Address [address] [place] [address] [address],[place],[address],[place] Referred Provider Specialty Pulmonary Di seases General Notes Lina Riojas 025 02:45:45 PM >08/12: Reports received, it was sent in referral form, so it has been put under referrals, Jeannette Riley 08/13/2024 03:43:01 PM >Scheduled 03/10/2025 @ 11:30 AM, Jeannette Riley 08/13/2024 03:43:26 PM >Need CTA Report and imaging powershared Referral Priority Routine Medications Medication SIG (Take, Route, Frequency, Duration) Notes Start Date End Date Status Azelastine HCl 0.1 % Solution 2 puffs (1 spray in each nostril) Nasally Twice a day Active traMADol HCl 50 MG Tablet Oral; Duration: 30 Days Active Famciclovir 500 MG Tablet 1 tablet Orall y Twice a day Active OneTouch Delica Plus [id number] - Miscellaneous check gluose EVERY DAY; Duration: 90 Days Active Vitamin D2 Active Lisinopril 5 MG Tablet TAKE 1 TABLET BY MOUTH EVERY DAY FOR BLOOD PRESSURE Oral; Duration: 90 Days Active Estradiol 0.5 MG Tablet 1 tablet Orally Once a day Active Ozempic (1 MG/DOSE) 4 MG/3ML Solution Pen-injector INJECT 1MG SUBCUTANEOUSLY every week Subcutaneous; Duration: 28 Days Active Aspirin Low Dose 81 MG Tablet Delayed Release Oral; Duration: 30 Days Active Progesterone 100 MG Capsule Oral; Duration: 30 Days Active glipiZIDE 10 MG Tablet 1 tablet 30 minut es before breakfast Orally Once a day Active OneTouch Ultra Test - Strip In Vitro; Du ration: 50 Days Active Isosorbide Mononitrate ER 30 MG Tablet Extended Release 24 Hour Oral; Duration: 90 Days A ctive Levocetirizine Dihydrochloride 5 MG Tablet 1 tablet in the evening Orally Once a day Active Cyclobenzaprine HCl 10 MG Tablet 1 tablet at bedtime as needed Orally Once a day Active Citalopram Hydrobromide 10 MG Tablet TAKE 1 TABLET BY MOUTH EVERY DAY Oral; Duration: 90 Days Active Montelukast Sodium 10 MG Tablet Oral; Duration: 30 Days Acti ve Social History Tobacco Use: Social History Observation Description Date Details (start date - stop date) Former Smoker NA - NA Social History Tobacco Use: Social Info Question Answer Notes Tobacco Control (Standard) Tobacco use: Former smoker How long has it been since you last smoked? Greater than 10 years Problems Problem Type SNOMED Code ICD Code Onset Dates Problem Status W/U Status Risk Notes Problem Chronic rhinitis (08503436) Chronic rhinitis (J31.0) Active confirmed Problem Asthma (968376232) Asthma (J45.909) Active confirmed Vital Signs Heart Rate 89 /min 12/23/2024 Temperature 97.6 degrees Fahrenheit 12/23/2024 Respiratory Rate 18 /min 12/23/2024 Height-cm 162.56 cm 12/23/2024 Oximetry 98 % 12/23/2024 Blood pressure diastolic 61 mm Hg 12/23/2024 Weight-kg 93.9 kg 12/23/2024 Height 64 in 12/23/2024 Blood pressure systolic 98 mm Hg 12/23/2024 Weight 207.01 lbs 12/23/2024 BMI 35.53 kg/m2 12/23/2024 Encounters Encounter Location Date Provider Diagnosis [facility] [address] [place] [address] 12/23/2024 Bruno Velasquez Shortness of breath R06.02 ; Chronic rhinitis J31.0 and Former smoker Z87.891 [facility] [address] [place] [address] 11/12/2024 Bruno Velasquez Assessments Encounter Date Diagnosis (ICD Code) Assessment Notes Treatment Notes Treatment Clinical Notes Section Notes 12/23/2024 Chronic rhinitis (ICD-10 - J31.0) Patient being started on allergy shots. 12/23/2024 Shortness of breath (ICD-10 - R06.02) Not currently requiring bronchodilators. I explained to her that if she has another bout of bronchitis despite being on allergy shots she will need a methacholine challenge test and might possibly need inhaled steroids. 12/23/2024 Former smoker (ICD-10 - Z87.891) Patient smoked a [id number]-zdk for 10 years. She has been abstinent since 1994. 12/23/2024 Other I, Angella Ghosh, am scribing for, and in the presence of Dr. Bruno Velasquez. I, Dr. Bruno Velasquez, personally performed the services described in this documentation, as scribed by Angella Ghosh in my presence, and it is both accurate and complete. Plan Of Treatment No Information Insurance Providers Payer Name Payer Address Payer Phone Subscriber Number Group Number Insured Name Patient Relationship to Insured Coverage Start Date Coverage End Date [facility] Commercial [address] [address] [place] [address] [id number] Corey Lisa Self - patient is the insured [facility] [address] [address] [place] [address] [id number] Lisa Nicole Self - patient is the insured Medical (General) History Medical History History ICD Code chicken pox pneumonia diabeties back trouble hypertension bronchitis Surgical History Surgery Date(Month/Year) back injection 2020 right ankle 2006 left elbow 2007 left knee 2011 Hospitalization History Reason Date(Month/Year) heart attack 05/2024
[2025-04-24 12:28] VITALS: BP 151/89; PULSE 88; RESP 17; TEMP 36.7; O2SAT 97; BMI 32.0
--- NOTE | 2025-04-24 13:23 | W.ED.BACK ---
HPI - Back Pain/Injury General: Chief Complaint: Back Pain/Injury Stated Complaint: back pain Time Seen by Provider: 04/24/25 13:10 Source: patient Mode of arrival: ambulatory Limitations: no limitations History of Present Illness: Patient is a 55-year-old female who presents emergency department complaining of right lower back pain after lifting heavy box at work. States that she has had mild pain over the past few days but it significantly worsened today after the incident of lifting. Radiates down her right lower leg reports a history of sciatica stating this feels similar. Takes tramadol chronically, has not gotten any relief from this today. No bowel or bladder incontinence, no saddle anesthesia. No other concerning symptoms at this time, vitals are stable she is nontoxic-appearing. No urinary symptoms. MD elicited complaint: back pain Onset (ago): hour(s) Timing: constant Severity: similar to previous episodes Associated symptoms: Deny abdominal pain, difficulty walking, fecal incontinence, fever(s) or syncope Related Data Home Medications ?Medication ?Instructions ?Recorded ?Confirmed tramadol 50 mg tablet 50 mg PO TID PRN Pain 10/17/19 04/07/25 atorvastatin 40 mg tablet 40 mg PO QAM 02/23/21 04/07/25 citalopram 10 mg tablet 10 mg PO BEDTIME 02/23/21 04/07/25 fluticasone propionate 50 2 spray intranasal DAILY 02/23/21 04/07/25 mcg/actuation nasal spray,suspension levocetirizine 5 mg tablet 5 mg PO QAM 02/23/21 04/07/25 azelastine 137 mcg (0.1 %) nasal 1 spray intranasal BID 01/04/24 04/07/25 spray glipizide 10 mg tablet 10 mg PO DAILY 01/04/24 04/07/25 ergocalciferol (vitamin D2) 1,250 1 unit PO BID 06/04/24 04/07/25 mcg (50,000 unit) capsule (Vitamin D2) lisinopril 5 mg tablet 5 mg PO DAILY 06/04/24 04/07/25 vitamin B complex 1 cap PO DAILY 06/04/24 04/07/25 montelukast 10 mg tablet 10 mg PO QAM allergies 07/22/24 04/07/25 (Singulair) semaglutide 1 mg/dose (4 mg/3 mL) mg SUBCUT .weekly 01/22/25 04/07/25 subcutaneous pen injector (Ozempic) Previous Rx's ?Medication ?Instructions ?Recorded progesterone micronized 200 mg 200 mg PO BEDTIME #90 caps 07/01/24 capsule estradiol 0.05 mg/24 hr semiweekly See Rx Instructions .Route 01/16/25 transdermal patch .COMPLEX #24 patches cyclobenzaprine 5 mg tablet 5 mg PO Q8H #10 tabs 04/24/25 Allergies Allergy/AdvReac Type Severity Reaction Status Date / Time metformin AdvReac Intermediate ADR-Nausea Verified 04/24/25 12:33 Review of Systems General: Reports: 10 or more systems reviewed and unremarkable except in HPI and below Const: Reports: other (denies trauma); Denies: fever(s), change in weight or night sweats Card: Denies: chest pain, lightheadedness or syncope Resp: Denies: dyspnea GI: Denies: abdominal pain or fecal incontinence : Denies: urinary incontinence Musc: Reports: back pain and extremity pain (RLE); Denies: neck pain Skin/Breast: Denies: rash or skin pain Neuro: Denies: headache(s), numbness in extremities, weakness in extremities, sensory changes, lack of coordination, difficulty walking, frequent falls or involuntary movements PFSH ED PFSH: Medical History No pertinent past medical history Neg hx: DM, thyroid, DVT/PE PCP: Dilip Migraine headache 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 Depression Hypertension Surgical History H/O sinus surgery (~12/27/21) cleaned out sinuses and corrected a deviated septum History of arthroscopic knee surgery (~04/2011) Left History of right tennis elbow (~08/2007) Release History of left tennis elbow (03/20/14) Release[place] [facility] [place]otripsy (~04/2006) History of ankle surgery (~11/2005) Right History of delivery (12/13/02) Performed in [place], [place] History of section (07/06/92) Performed in [place], [place] History of back surgery (~04/2019) Nerve ablation. Dr. Merino at [facility]. Family History Mother Colon cancer dx age 70's Stroke Diabetes Father Heart disease Diabetes Hypertension Denies family history of Ovarian cancer Hyperlipidemia Breast cancer Uterine cancer Thyroid disease Social History Smoking and tobacco/nicotine status: former use of tobacco/nicotine Physical Exam Const: COMMON NORMALS: no acute distress, patient oriented x3, no limitations, healthy appearing and alert OTHER: nontoxic, afebrile Resp: COMMON NORMALS: normal respiratory effort, No retractions, No use of accessory muscles and clear to auscultation bilaterally AUSCULTATION: clear to auscultation bilaterally Cardio: COMMON NORMALS: regular rate, regular rhythm, S1 normal heart sound present and S2 normal heart sound present RATE: regular rate RHYTHM: regular rhythm HEART SOUNDS: S1 normal heart sound present and S2 normal heart sound present Back/Pelvis: OTHER: Normal visual examination. Tender to palpation right lower paralumbar muscles. Positive straight leg raise testing on the right. Extremity: COMMON NORMALS: normal to inspection and full ROM Neuro: COMMON NORMALS: patient oriented x3, moves all extremities, no focal motor deficits, no sensory deficits noted, deep tendon reflexes 2+ bilaterally and gait normal SENSORIUM/ORIENTATION: Yes alert OTHER: L3, L4, L5, and S1 nerve sensations intact. Normal knee jerk and ankle jerk reflexes. Skin: COMMON NORMALS: no rashes or lesions noted GENERAL SKIN EXAM: no rashes or lesions noted Course Vital Signs: Vital signs: Vital Signs Temperature 98.1 F 04/24/25 12:28 Pulse Rate 88 04/24/25 12:28 Respiratory Rate 17 04/24/25 12:28 Blood Pressure 151/89 04/24/25 12:28 Pulse Oximetry 97 04/24/25 12:28 Oxygen Delivery Me thod Room Air 04/24/25 12:28 MDM - Back Pain/Injury Medical Decision Making Patient present with right lower back pain rating down her right leg, comparable to her history of sciatic nerve irritation. She has had previous ablation performed in the past, she comes to me that she states she thinks it is wearing off. She did have an incident today heavy lifting that cause exacerbation of the pain, however it is greatly improved here after medications in the ED. Urinalysis had been obtained negative for any infectious etiology as contributory to her pain. Positive testing on exam for nerve impingement, this is lumbar radiculopathy, no red flag symptoms of her back and she will be allowed discharge, she will continue taking her tramadol as prescribed. Will follow-up with primary care for any worsening. Labs Laboratory Results Urine Color Yellow (Yellow) 04/24/25 13:50 Urine Appearance Clear (CLEAR) 04/24/25 13:50 Urine pH 6.5 (5-7) 04/24/25 13:50 Ur Specific [place] 1.007 (1.005-1.030) 04/24/25 13:50 Urine Protein Negative (Negative) 04/24/25 13:50 Urine Glucose (UA) Negative (Normal) 04/24/25 13:50 Urine Ketones Negative (Negative) 04/24/25 13:50 Urine Blood Negative (Negative) 04/24/25 13:50 Urine Nitrate Negative (Negative) 04/24/25 13:50 Urine Bilirubin Negative (Negative) 04/24/25 13:50 Urine Urobilinogen 0.2 mg/dL (Negative) 04/24/25 13:50 Ur Leukocyte Esterase Negative (Negative) 04/24/25 13:50 Urine RBC 0-2 /hpf (0-2) 04/24/25 13:50 Urine WBC 0-5 /hpf (0-5) 04/24/25 13:50 Ur Squamous Epith Cells 0-5 /hpf (0-5) 04/24/25 13:50 Amorphous Sediment Not Reportable 04/24/25 13:50 Urine Bacteria None seen /hpf (NONE) 04/24/25 13:50 Hyaline Casts 0-4 /lpf H 04/24/25 13:50 No radiology studies performed this visit Discharge Plan Discharge Patient Disposition: Home Clinical Impression: Lumbar radiculopathy Condition: Stable Prescriptions: New cyclobenzaprine 5 mg tablet 5 mg PO Q8H Qty: 10 0RF No Action tramadol 50 mg tablet 50 mg PO TID PRN (Reason: Pain) Ozempic 1 mg/dose (4 mg/3 mL) pen injector SUBCUT .weekly glipizide 10 mg tablet 10 mg PO DAILY azelastine 137 mcg (0.1 %) spray,non-aerosol 1 spray intranasal BID Rx Instructions: administer into each nostril progesterone micronized 200 mg capsule 200 mg PO BEDTIME Qty: 90 2RF estradiol 0.05 mg/24 hr patch semiweekly See Rx Instructions .ROUTE .COMPLEX Qty: 24 0RF Dose Instruction: apply ONE PATCH transdermally TWICE A WEEK Rx Instructions: apply ONE PATCH transdermally TWICE A WEEK atorvastatin 40 mg tablet 40 mg PO QAM fluticasone propionate 50 mcg/actuation [place],Suspension 2 spray INTRANASAL DAILY levocetirizine 5 mg tablet 5 mg PO QAM citalopram 10 mg tablet 10 mg PO BEDTIME Singulair 10 mg tablet 10 mg PO QAM lisinopril 5 mg tablet 5 mg PO DAILY ergocalciferol (vitamin D2) [Vitamin D2] 1,250 mcg (50,000 unit) capsule 1 unit PO BID vitamin B complex Capsule 1 cap PO DAILY Discharge Orders: Discharge ED (Routine); Ordered 04/24/25 Ordered By: Bola Hightower Referrals: Sharad Cherry DO [Primary Care Provider, Family Practice] Patient Instructions: Patient Portal & Blu Instructions Activity Restrictions/Additional Instructions: Discharge Instructions: Right Lumbar Radiculopathy (Sciatica) Your Diagnosis You were diagnosed with right lumbar radiculopathy, also known as sciatica. This condition occurs when a nerve in your lower back becomes irritated or compressed, causing pain that radiates down your leg. In your case, this happened after lifting something heavy. The good news is that most people with this condition improve significantly over time with conservative treatment. Your Medications Continue taking your medications as directed: - Tramadol: Continue taking as you have been at home for pain relief - Cyclobenzaprine 5 mg: Take as needed for muscle spasms (up to 3 times daily). This medication may cause drowsiness, so do not drive or operate machinery until you know how it affects you - [id number] NSAIDs (such as ibuprofen or naproxen): You may take these as directed on the package for additional pain relief if needed. Take with food to reduce stomach upset Activity and Self-Care - Stay active: Avoid bed rest. Continue with your normal daily activities as much as your pain allows. Staying active promotes faster recovery - Avoid aggravating activities: Temporarily avoid heavy lifting, bending, twisting, and prolonged sitting until your symptoms improve - Apply heat: You may use a heating pad or warm compress on your lower back for 15-20 minutes at a time to help relieve pain and muscle spasms - Gentle stretching: Light stretching and walking are encouraged as tolerated What to Expect Most people with sciatica improve significantly within 4-6 weeks. Your symptoms should gradually decrease over time. Some discomfort during recovery is normal, but you should notice steady improvement. When to Seek Immediate Medical Attention Go to the emergency department or call 911 if you develop any of these warning signs: - Loss of bowel or bladder control (inability to control urination or bowel movements) - Numbness in the groin, buttocks, or inner thigh area (saddle anesthesia) - Severe weakness in one or both legs that prevents you from walking - Fever with your back pain - Worsening numbness or weakness in your leg Follow-Up Care - Schedule an appointment with your primary care doctor within 1-2 weeks - If your symptoms do not improve after 4-6 weeks of conservative treatment, contact your doctor to discuss additional treatment options, which may include physical therapy or further evaluation Additional Information Your urinalysis showed no signs of infection, which is reassuring. The medications you received in the emergency department (dexamethasone, ketorolac, orphenadrine, and hydrocodone) provided you with relief, and the home medications prescribed should help maintain your comfort as you recover. Stand Alone Forms: Work/School Release Print Language: Ivorian Coding Level of Care Code ED Value Engineer for Carol Elizalde
[2025-04-24] MEDS: orphenadrine 30 mg/mL Inj 2 mL 60 MG IM (13:55)
[2025-04-24] MEDS: HYDROcodone-acetaminophen 5-325 mg Tablet 1 TAB PO (13:57)
[2025-04-24 14:09] LABS: Glucose Urine UA Negative (Normal); Nitrate Urine Negative (Negative); Specific Gravity, Urine 1.007 (1.005-1.030)
[2025-04-24 14:14] LABS: Add Urine Microscopic? YES
[2025-04-24 15:04] VITALS: BP 151/89; PULSE 88; O2SAT 97
== END 2025-04-24 15:05 | disposition home or self-care (01) ==
PROVIDERS: Emergency Provider Physician Assistant; PCP Electrodiagnostic Medicine
DX: M54.16 Radiculopathy, lumbar region (principal); Z87.891 Personal history of nicotine dependence; I10 Essential (primary) hypertension
CPT/HCPCS: 81001; 96372; 99284; J1100; J1885; J2360; J9999